=== PATIENT | male | born 1975 | race Caucasian/White ===

== ENCOUNTER 2019-11-30 11:57 | Emergency (ER) | payer MEDICAID ==
[~2019-11-30] VITALS: Ht 175.3 cm; Wt 109.1 kg
[2019-11-30 12:34] VITALS: BP 176/113
== END 2019-11-30 14:50 | disposition home or self-care (01) ==
LOC: ER 11:58
DX: F15.10 Other stimulant abuse, uncomplicated (principal); F10.10 Alcohol abuse, uncomplicated; F17.200 Nicotine dependence, unspecified, uncomplicated; Z88.0 Allergy status to penicillin; Y90.9 Presence of alcohol in blood, level not specified
CPT/HCPCS: 99281

== ENCOUNTER 2020-07-13 02:23 | Emergency (ER) | payer MEDICAID ==
[~2020-07-13] VITALS: Ht 175.3 cm; Wt 120.5 kg
[2020-07-13 02:25] VITALS: BP 168/107
== END 2020-07-13 03:56 ==
LOC: ER 02:23
DX: S52.602A Unspecified fracture of lower end of left ulna, initial encounter for closed fracture (principal); S00.83XA Contusion of other part of head, initial encounter; I10 Essential (primary) hypertension; F15.90 Other stimulant use, unspecified, uncomplicated; Z85.9 Personal history of malignant neoplasm, unspecified; Z72.89 Other problems related to lifestyle; Z88.0 Allergy status to penicillin; X58.XXXA Exposure to other specified factors, initial encounter; Y93.89 Activity, other specified; Y92.89 Other specified places as the place of occurrence of the external cause; Y99.8 Other external cause status; Y09 Assault by unspecified means
CPT/HCPCS: 29125; 70450; 71045; 73110; 99284

== ENCOUNTER 2021-04-10 01:30 | Emergency (ER) | payer MEDICAID ==
[~2021-04-10] VITALS: Ht 172.7 cm; Wt 118.2 kg
[2021-04-10] MEDS ORDERED: HYDR-3965 PO (03:29)
[2021-04-10 04:30] VITALS: BP 136/87
== END 2021-04-10 04:33 | disposition home or self-care (01) ==
LOC: ER 01:30
DX: S42.291A Other displaced fracture of upper end of right humerus, initial encounter for closed fracture (principal); I10 Essential (primary) hypertension; F15.90 Other stimulant use, unspecified, uncomplicated; Z72.89 Other problems related to lifestyle; Z88.0 Allergy status to penicillin; Z79.899 Other long term (current) drug therapy; W10.1XXA Fall (on)(from) sidewalk curb, initial encounter; Y93.01 Activity, walking, marching and hiking; Y92.89 Other specified places as the place of occurrence of the external cause; Y99.8 Other external cause status
CPT/HCPCS: 29105; 73030; 99284

== ENCOUNTER 2021-08-25 20:24 | Emergency (ER) | payer MEDICAID ==
[~2021-08-25] VITALS: Ht 175.3 cm; Wt 104.5 kg
[2021-08-25 20:45] VITALS: BP 154/121
== END 2021-08-25 21:28 ==
LOC: ER 20:24
DX: Z00.8 Encounter for other general examination (principal); I10 Essential (primary) hypertension; F15.90 Other stimulant use, unspecified, uncomplicated; Z72.89 Other problems related to lifestyle; Z85.9 Personal history of malignant neoplasm, unspecified; Z88.0 Allergy status to penicillin
CPT/HCPCS: 99283

== ENCOUNTER 2022-02-03 20:06 | Emergency (ER) | payer MEDICAID ==
[~2022-02-03] VITALS: Ht 175.3 cm; Wt 95.5 kg
[2022-02-03 20:56] LABS: BASOPHILS # (AUTO) 0.1 X10'3 (0-0.2); BASOPHILS % (AUTO) 0.3 % (0-1); EOSINOPHILS # (AUTO) 0.1 X10'3 (0-0.9); EOSINOPHILS % (AUTO) 0.7 % (0-6); HEMATOCRIT 45.6 % (42.0-52.0); HEMOGLOBIN 15.6 g/dl (14.0-17.9); LYMPHOCYTES # (AUTO) 2.6 X10'3 (1.1-4.8); LYMPHOCYTES % (AUTO) 14.6 % (21-51); MEAN CORPUSCULAR HEMOGLOBIN 30.5 PG (27.0-31.0); MEAN CORPUSCULAR HGB CONC 34.3 g/dL (33.0-36.5); MEAN CORPUSCULAR VOLUME 89.2 FL (78-98); MEAN PLATELET VOLUME 7.4 FL (7.4-10.4); MONOCYTES # (AUTO) 0.7 X10'3 (0-0.9); MONOCYTES % (AUTO) 3.7 % (2-12); NEUTROPHILS # (AUTO) 14.5 X10'3 (1.8-7.7); NEUTROPHILS % (AUTO) 80.7 % (42-75); PLATELET COUNT 323 X10'3 (140-440); RED BLOOD COUNT 5.11 X10'6 (4.70-6.10)
[2022-02-03 21:10] LABS: ALANINE AMINOTRANSFERASE 25 U/L (12-78); ALBUMIN 3.8 G/DL (3.4-5.0); ALBUMIN/GLOBULIN RATIO 0.9 (1.1-1.5); ALKALINE PHOSPHATASE 111 IU/L (46-116); ANION GAP 14 (8-16); ASPARTATE AMINO TRANSFERASE 15 U/L (10-37); BILIRUBIN,TOTAL 0.2 MG/DL (0.1-1.0); BLOOD UREA NITROGEN 16 MG/DL (7-18); BUN/CREATININE RATIO 14.7 (5.4-32.0); CALCIUM 8.6 MG/DL (8.5-10.1); CHLORIDE 105 MMOL/L (99-107); CREATININE 1.09 MG/DL (0.60-1.10); ETHANOL 0.192 GM/DL (0.0-0.010); GLUCOSE 133 MG/DL (70-104); LIPASE 79 U/L (73-393); POTASSIUM 3.1 MMOL/L (3.5-5.1); SODIUM 141 MMOL/L (135-145); TOTAL CARBON DIOXIDE 21.7 MMOL/L (24-32); TOTAL PROTEIN 7.9 G/DL (6.4-8.2); eGFR 73 ML/MIN
[2022-02-03 21:13] LABS: URINE AMPHETAMINE SCREEN NEGATIVE (Neg); URINE BARBITUATE SCREEN NEGATIVE (Neg); URINE BENZODIAZEPINES SCREEN NEGATIVE (Neg); URINE CANNABINOID SCREEN NEGATIVE (Neg); URINE COCAINE SCREEN NEGATIVE (Neg); URINE METHADONE SCREEN NEGATIVE (Neg); URINE OPIATE SCREEN NEGATIVE (Neg); URINE PHENCYCLIDINE SCREEN NEGATIVE (Neg)
[2022-02-03] MEDS ORDERED: pantoprazole 40 MG vial IV ONE (21:20)
[2022-02-03] MEDS ORDERED: normal saline 1000ML IV soln IVB ONE (21:20)
[2022-02-03] MEDS ORDERED: ondansetron/PF 4mg/2ml inj IV ONE (21:20)
[2022-02-03] MEDS ORDERED: pantoprazole 40MG/NS 100ML BAG 100 ML IV ONE (21:25)
[2022-02-03 21:35] VITALS: BP 106/61
--- NOTE | 2022-02-03 21:35 | NUR ---
PT IS BECOMING MORE AND MORE ANXIOUS, TAPPING HIS FEET, FIDGITING, ETC. PT IS REPEATEDLY ASKING TO LEAVE AND ASKING EVERY STAFF MEMBER FOR A BEER
--- NOTE | 2022-02-03 21:44 | NUR ---
PT REMOVED OWN IV AND WALKED OUT OF AMBULANCE BAY. ATTEMPTS TO VERBALLY REDIRECT PATIENT WERE UNSUCCESSFUL.
[2022-02-03 22:23] LABS: CLARITY,URINE TURBID (Clear); COLOR,URINE YELLOW (Yellow); GLUCOSE, URINE NEGATIVE (Neg); KETONES,URINE NEGATIVE (Neg); LEUKOCYTE ESTERASE ,URINE NEGATIVE (Neg); NITRITES, URINE NEGATIVE (Neg); OCCULT BLOOD,URINE NEGATIVE (Neg); PH,URINE 5.5 (4.8-8.0); PROTEIN,URINE NEGATIVE (Neg); UROBILINOGEN,URINE 0.2 E.U/dL (0.2-1.0)
[2022-02-03 22:25] LABS: UA COLLECTION TYPE CLN CATCH MIDSTREAM
[2022-02-03 22:30] LABS: MUCUS STRANDS NONE SEEN /LPF (Neg)
[2022-02-03 22:57] LABS: AMORPHOUS URATES 3+
[2022-02-03 23:02] LABS: WBC,URINE NONE SEEN /HPF (0-4)
[2022-02-03 23:03] LABS: BACTERIA,URINE NONE SEEN /HPF (Neg); SQUAMOUS EPITHELIAL CELL,UR NONE SEEN /LPF (FEW)
[2022-02-03 23:04] LABS: RBC,URINE NONE SEEN /HPF (0-2)
== END 2022-02-03 21:46 | disposition left against medical advice (07) ==
LOC: ER 20:06
DX: F10.129 Alcohol abuse with intoxication, unspecified (principal); R42 Dizziness and giddiness; R06.02 Shortness of breath; R19.7 Diarrhea, unspecified; R00.0 Tachycardia, unspecified; I10 Essential (primary) hypertension; Z88.0 Allergy status to penicillin; Y90.9 Presence of alcohol in blood, level not specified
CPT/HCPCS: 36415; 71045; 80053; 80305; 80320; 81001; 83690; 85025; 93005; 96374; 96375; 99285; C9113; J2405; J7030; 99284

== ENCOUNTER 2022-02-25 21:58 | Emergency (ER) | payer MEDICAID ==
[2022-02-26] MEDS ORDERED: HYDR-3965 PO (05:23)
== END 2022-02-26 01:32 | disposition left against medical advice (07) ==
LOC: ER 21:59
DX: M79.673 Pain in unspecified foot (principal); Z53.21 Procedure and treatment not carried out due to patient leaving prior to being seen by health care provider

== ENCOUNTER 2022-02-26 04:52 | Emergency (ER) | payer MEDICAID ==
[~2022-02-26] VITALS: Ht 175.3 cm; Wt 95.5 kg
[2022-02-26] MEDS ORDERED: ketorolac trometh inj. 60 MG/2 ML VIAL IM ONE (05:20)
[2022-02-26] MEDS ORDERED: HYDR-3965 PO (05:23)
[2022-02-26 06:00] VITALS: BP 124/80
== END 2022-02-26 06:02 | disposition home or self-care (01) ==
LOC: ER 04:53
DX: S82.64XA Nondisplaced fracture of lateral malleolus of right fibula, initial encounter for closed fracture (principal); I10 Essential (primary) hypertension; Z88.0 Allergy status to penicillin; Y93.39 Activity, other involving climbing, rappelling and jumping off; Y93.89 Activity, other specified; Y92.89 Other specified places as the place of occurrence of the external cause; Y99.8 Other external cause status
CPT/HCPCS: 29515; 73610; 96372; 99283; J1885; A6449

== ENCOUNTER 2022-04-24 16:32 | Emergency (ER) | payer MEDICAID ==
[~2022-04-24] VITALS: Ht 175.3 cm; Wt 93.2 kg
[2022-04-24 16:41] VITALS: BP 137/91
[2022-04-24] MEDS ORDERED: ibuprofen tablet 400 MG TABLET PO ONE (18:40)
[2022-04-24] MEDS ORDERED: IBUP-1985 PO (19:18)
== END 2022-04-24 20:53 | disposition home or self-care (01) ==
LOC: ER 16:33
DX: S42.402A Unspecified fracture of lower end of left humerus, initial encounter for closed fracture (principal); S20.212A Contusion of left front wall of thorax, initial encounter; I10 Essential (primary) hypertension; Z88.0 Allergy status to penicillin; Z79.899 Other long term (current) drug therapy; Z59.00 Homelessness unspecified; Z56.0 Unemployment, unspecified
CPT/HCPCS: 29105; 71101; 73080; 99284; A4565; A6449

== ENCOUNTER 2022-06-18 09:13 | Emergency (ER) | payer MEDICAID ==
[~2022-06-18] VITALS: Ht 175.3 cm; Wt 85.0 kg
[~2022-06-18 09:13] MED LIST: GABA-530 PO; IBUP-1985 PO; LISI20TA28 PO; LOP12.5T PO; LURA20TA PO; MIRT45TA83 PO
--- NOTE | 2022-06-18 09:40 | NUR ---
at bedside. Pt able to answer all questions. Ambulance trail done. Pt able to ambulate w/ a steady gait.
[2022-06-18 09:48] VITALS: BP 138/90
== END 2022-06-18 09:56 | disposition home or self-care (01) ==
LOC: ER 09:14
DX: F10.129 Alcohol abuse with intoxication, unspecified (principal); I10 Essential (primary) hypertension; Z88.0 Allergy status to penicillin; Z79.899 Other long term (current) drug therapy; Z79.1 Long term (current) use of non-steroidal anti-inflammatories (NSAID); Z59.00 Homelessness unspecified
CPT/HCPCS: 93005; 99284

== ENCOUNTER 2023-09-14 17:23 | Emergency (ER) | payer MEDICAID ==
[~2023-09-14] VITALS: Ht 175.3 cm; Wt 103.1 kg
[~2023-09-14 17:23] MED LIST changes: -LURA20TA PO; +LURA20TA8 PO
[2023-09-14 17:27] VITALS: BP 156/99; PULSE 100; TEMP 97.7; O2SAT 99
[2023-09-14 19:00] VITALS: RESP 16
== END 2023-09-14 19:26 | disposition home or self-care (01) ==
LOC: ER 17:24
DX: F10.129 Alcohol abuse with intoxication, unspecified (principal); I10 Essential (primary) hypertension; Z59.00 Homelessness unspecified; Z56.0 Unemployment, unspecified; Z88.0 Allergy status to penicillin; Z79.899 Other long term (current) drug therapy; Y90.9 Presence of alcohol in blood, level not specified
CPT/HCPCS: 99284

== ENCOUNTER 2023-10-11 09:31 | Emergency (ER) | payer MEDICAID ==
[~2023-10-11] VITALS: Ht 175.3 cm; Wt 80.0 kg
[2023-10-11 09:39] VITALS: TEMP 99.1
[2023-10-11] MEDS ORDERED: LORazepam 2 mg/ml vial IV ONE (09:45)
[2023-10-11] MEDS ORDERED: normal saline 1000ML IV soln IVB ONE (09:45)
[2023-10-11] MEDS: LORazepam 2 mg/ml vial IV ONE ×2 (09:59→11:26)
[2023-10-11] MEDS: normal saline 1000ml 1,000 ML IV ONE ×2 (10:00→11:27)
[2023-10-11] MEDS: normal saline 1000ML IV soln IVB ONE (10:03)
[2023-10-11] MEDS: ondansetron/PF 4mg/2ml inj IV ONE (10:14)
[2023-10-11 11:02] LABS: BASOPHILS # (AUTO) 0.1 X10'3 (0-0.2); BASOPHILS % (AUTO) 1.2 % (0-1); EOSINOPHILS # (AUTO) 0.1 X10'3 (0-0.9); EOSINOPHILS % (AUTO) 0.8 % (0-6); HEMATOCRIT 41.5 % (42.0-52.0); HEMOGLOBIN 14.2 g/dl (14.0-17.9); LYMPHOCYTES % (AUTO) 11.3 % (21-51); MEAN CORPUSCULAR HGB CONC 34.2 g/dL (33.0-36.5); MEAN CORPUSCULAR VOLUME 96.6 FL (78-98); MEAN PLATELET VOLUME 7.6 FL (7.4-10.4); MONOCYTES # (AUTO) 0.4 X10'3 (0-0.9); MONOCYTES % (AUTO) 4.6 % (2-12); NEUTROPHILS # (AUTO) 7.5 X10'3 (1.8-7.7); NEUTROPHILS % (AUTO) 82.1 % (42-75); PLATELET COUNT 332 X10'3 (140-440); RED BLOOD COUNT 4.29 X10'6 (4.70-6.10); RED CELL DISTRIBUTION WIDTH 14.2 % (11.5-14.5); WHITE BLOOD COUNT 9.1 X10'3 (4.5-11.0)
[2023-10-11 11:04] LABS: BILIRUBIN,URINE NEGATIVE (Neg); CLARITY,URINE CLEAR (Clear); COLOR,URINE YELLOW (Yellow); GLUCOSE, URINE NEGATIVE (Neg); KETONES,URINE TRACE mg/dl (Neg); LEUKOCYTE ESTERASE ,URINE NEGATIVE (Neg); NITRITES, URINE NEGATIVE (Neg); OCCULT BLOOD,URINE NEGATIVE (Neg); PROTEIN,URINE NEGATIVE (Neg); UROBILINOGEN,URINE 0.2 E.U/dL (0.2-1.0)
[2023-10-11 11:06] LABS: UA COLLECTION TYPE NON-SPECIFIED
[2023-10-11 11:27] LABS: ANION GAP 12 (8-16); BLOOD UREA NITROGEN 5 MG/DL (7-18); BUN/CREATININE RATIO 6.9 (10.0-20.0); CALCIUM 7.7 MG/DL (8.5-10.1); CHLORIDE 109 MMOL/L (99-107); CREATININE 0.72 MG/DL (0.60-1.10); GLUCOSE 98 MG/DL (70-104); POTASSIUM 4.1 MMOL/L (3.5-5.1); SODIUM 145 MMOL/L (135-145); TOTAL CARBON DIOXIDE 23.9 MMOL/L (24-32); eCRCL 128 ML/MIN; eGFR > 90 ML/MIN
[2023-10-11 11:33] LABS: URINE AMPHETAMINE SCREEN NEGATIVE (Neg); URINE BARBITUATE SCREEN POSITIVE (Neg); URINE BENZODIAZEPINES SCREEN POSITIVE (Neg); URINE CANNABINOID SCREEN NEGATIVE (Neg); URINE COCAINE SCREEN NEGATIVE (Neg); URINE METHADONE SCREEN NEGATIVE (Neg); URINE OPIATE SCREEN NEGATIVE (Neg); URINE PHENCYCLIDINE SCREEN NEGATIVE (Neg)
[2023-10-11 11:34] LABS: ETHANOL < 10 MG/DL (<10)
[2023-10-11 13:28] VITALS: BP 155/104; PULSE 119; RESP 27; O2SAT 92
[2023-10-11] MEDS ORDERED: LORA-269 PO (13:31)
== END 2023-10-11 13:50 | disposition home or self-care (01) ==
LOC: ER 09:32
DX: F10.239 Alcohol dependence with withdrawal, unspecified (principal); Y90.9 Presence of alcohol in blood, level not specified; R07.89 Other chest pain; I10 Essential (primary) hypertension; Z86.73 Personal history of transient ischemic attack (TIA), and cerebral infarction without residual deficits; Z59.00 Homelessness unspecified; Z56.0 Unemployment, unspecified; Z88.0 Allergy status to penicillin; Z79.899 Other long term (current) drug therapy
CPT/HCPCS: 36415; 71045; 80048; 80305; 80320; 81003; 82140; 84484; 85025; 93005; 96361; 96374; 96375; 96376; 99285; J2060; J2405; J7030

== ENCOUNTER 2024-02-01 16:48 | Emergency (ER) | payer MEDICAID ==
[~2024-02-01] VITALS: Ht 182.9 cm; Wt 100.5 kg
[~2024-02-01 16:48] MED LIST changes: +LORA-269 PO
[2024-02-01] MEDS: normal saline 1000ml 1,000 ML IV ONE (17:39)
[2024-02-01 17:40] LABS: EOSINOPHILS # (AUTO) 0.2 X10'3 (0-0.9); HEMOGLOBIN 13.8 g/dl (14.0-17.9); RED BLOOD COUNT 3.98 X10'6 (4.70-6.10)
[2024-02-01 17:42] LABS: BASOPHILS % (AUTO) 0.4 % (0-1); EOSINOPHILS % (AUTO) 1.5 % (0-6); HEMATOCRIT 41.3 % (42.0-52.0); LYMPHOCYTES # (AUTO) 1.9 X10'3 (1.1-4.8); LYMPHOCYTES % (AUTO) 16.1 % (21-51); MEAN CORPUSCULAR HEMOGLOBIN 34.8 PG (27.0-31.0); MEAN CORPUSCULAR HGB CONC 33.5 g/dL (33.0-36.5); MEAN CORPUSCULAR VOLUME 103.9 FL (78-98); MEAN PLATELET VOLUME 8.3 FL (7.4-10.4); MONOCYTES # (AUTO) 1.2 X10'3 (0-0.9); NEUTROPHILS # (AUTO) 8.3 X10'3 (1.8-7.7); PLATELET COUNT 190 X10'3 (140-440); RED CELL DISTRIBUTION WIDTH 14.5 % (11.5-14.5); WHITE BLOOD COUNT 11.5 X10'3 (4.5-11.0)
[2024-02-01] MEDS: ringers solution, lactated 1000ml IV soln IV ONE (17:42)
[2024-02-01] MEDS: normal saline 1000ML IV soln IVB ONE (17:42)
[2024-02-01 17:57] LABS: ALANINE AMINOTRANSFERASE 104 U/L (12-78); ALBUMIN 2.7 G/DL (3.4-5.0); ALBUMIN/GLOBULIN RATIO 0.8 (1.1-1.5); ALKALINE PHOSPHATASE 105 IU/L (46-116); ANION GAP 15 (8-16); ASPARTATE AMINO TRANSFERASE 99 U/L (10-37); BILIRUBIN,TOTAL 0.6 MG/DL (0.1-1.0); BLOOD UREA NITROGEN 17 MG/DL (7-18); BUN/CREATININE RATIO 6.3 (10.0-20.0); CALCIUM 7.2 MG/DL (8.5-10.1); CHLORIDE 103 MMOL/L (99-107); CREATININE 2.68 MG/DL (0.60-1.10); ETHANOL 174 MG/DL (<10); GLUCOSE 117 MG/DL (70-104); POTASSIUM 3.4 MMOL/L (3.5-5.1); SODIUM 139 MMOL/L (135-145); TOTAL CARBON DIOXIDE 21.2 MMOL/L (24-32); TOTAL PROTEIN 6.3 G/DL (6.4-8.2); eCRCL 38 ML/MIN; eGFR 26 ML/MIN
[2024-02-01] MEDS: LORazepam 1 MG tablet PO ONE (19:59)
[2024-02-01] MEDS: ondansetron/PF 4mg/2ml inj IV ONE (20:52)
[2024-02-01 21:08] LABS: URINE AMPHETAMINE SCREEN NEGATIVE (Neg); URINE BARBITUATE SCREEN NEGATIVE (Neg); URINE BENZODIAZEPINES SCREEN POSITIVE (Neg); URINE CANNABINOID SCREEN NEGATIVE (Neg); URINE COCAINE SCREEN NEGATIVE (Neg); URINE METHADONE SCREEN NEGATIVE (Neg); URINE OPIATE SCREEN NEGATIVE (Neg); URINE PHENCYCLIDINE SCREEN NEGATIVE (Neg)
[2024-02-02] MEDS: thiamine 100mg/ml 2ml inj. IV ONE (03:38)
[2024-02-02] MEDS: magnesium sulf-water 2g/50mL 50 ML IV ONE (03:39)
[2024-02-02] MEDS: chlordiazePOXIDE 25mg capsule PO ONE (06:20)
[2024-02-02 07:29] VITALS: BP 134/90; PULSE 96; RESP 14; TEMP 98.5; O2SAT 96
== END 2024-02-02 07:20 | disposition home or self-care (01) ==
LOC: ER 16:48
DX: T67.01XA Heatstroke and sunstroke, initial encounter (principal); F10.129 Alcohol abuse with intoxication, unspecified; M62.82 Rhabdomyolysis; R41.82 Altered mental status, unspecified; I10 Essential (primary) hypertension; F17.200 Nicotine dependence, unspecified, uncomplicated; Z88.0 Allergy status to penicillin; Z79.899 Other long term (current) drug therapy; X58.XXXA Exposure to other specified factors, initial encounter; Y93.89 Activity, other specified; Y92.89 Other specified places as the place of occurrence of the external cause; Y99.8 Other external cause status; Y90.6 Blood alcohol level of 120-199 mg/100 ml
CPT/HCPCS: 36415; 70450; 80053; 80305; 80320; 82140; 82948; 83605; 85025; 93005; 96365; 96366; 96375; 99291; J2405; J3411; J7030; J7120

== ENCOUNTER 2024-09-14 07:56 | Emergency (ER) | payer MEDICAID ==
[~2024-09-14] VITALS: Ht 175.3 cm; Wt 91.4 kg
[2024-09-14 08:02] VITALS: TEMP 98
[2024-09-14] MEDS ORDERED: PANT-47 PO ×2 (08:19→08:33)
[2024-09-14] MEDS ORDERED: LURA40TA2 PO ×2 (08:19→08:33)
[2024-09-14] MEDS ORDERED: FOLI0.4T6 PO (08:20)
[2024-09-14 08:30] VITALS: BP 155/101; PULSE 84; RESP 16; O2SAT 98
[2024-09-14] MEDS ORDERED: LISI20TA28 PO (08:33)
[2024-09-14] MEDS ORDERED: FOLI1TAB27 PO (08:33)
== END 2024-09-14 08:57 | disposition home or self-care (01) ==
LOC: ER 07:57
DX: I10 Essential (primary) hypertension (principal); F31.9 Bipolar disorder, unspecified; F41.9 Anxiety disorder, unspecified; F17.200 Nicotine dependence, unspecified, uncomplicated; Z59.00 Homelessness unspecified; Z56.0 Unemployment, unspecified; Z86.73 Personal history of transient ischemic attack (TIA), and cerebral infarction without residual deficits; Z85.51 Personal history of malignant neoplasm of bladder; Z88.0 Allergy status to penicillin; Z79.899 Other long term (current) drug therapy
CPT/HCPCS: 99284

== ENCOUNTER 2024-12-14 11:39 | Emergency (ER) | payer MEDICAID ==
[~2024-12-14] VITALS: Ht 172.7 cm; Wt 97.6 kg
[~2024-12-14 11:39] MED LIST changes: +FOLI0.4T6 PO; +FOLI1TAB27 PO; -GABA-530 PO; -IBUP-1985 PO; -LOP12.5T PO; -LORA-269 PO; -LURA20TA8 PO; +LURA40TA2 PO; -MIRT45TA83 PO; +PANT-47 PO
[2024-12-14 11:45] VITALS: TEMP 98.2
--- NOTE | 2024-12-14 11:58 | ELECTROCARDIOGRAPH REPORT ---
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 Jayme Albarran Measurements Intervals [place] Rate: 113 P: 79 KS: 151 QRS: 69 QRSD: 88 T: 62 QT: 302 QTc: 414 Interpretive Statements Sinus tachycardia RSR' in V1 or V2, probably normal variant ST elev, probable normal early repol pattern Electronically Signed On 12-16-2024 21:44:[address] Jayme Albarran Please click the below link to view image of tracing.
--- NOTE | 2024-12-14 12:10 | Physician Documentation ---
History of Present Illness ~ Chief Complaint: Syncope Stated Complaint: NEAR SYNCOPE Time Seen by MD: 11:59 Primary Medical Doctor: NO PMD HPI This is a 49-year-old gentleman who drinks daily two extra-large vodka" and comes in today for evaluation of episode of loss of consciousness earlier today. No obvious trigger provocation. He only had one bottle of extra large vodka to day. This is less than normal for him. The loss of consciousness was witnessed by his girlfriend but he does not recall it. Denies any chest pain or difficulty breathing. The past medical history includes sepsis in July of this year when he has a stay at [facility] ICU . The gentleman is a poor historian. Medication Reconciliation Allergies: Coded Allergies: Penicillins (Verified Allergy, Unknown, THROAT SWELLS, 09/14/24) Scheduled Folic Acid* (Folic Acid*), 1 TAB PO DAILY, (Reported) Folic Acid* (Folic Acid*), 1 TAB PO DAILY Lisinopril (Lisinopril), 1 TAB PO DAILY, (Reported) Lurasidone HCl (Latuda), 1 TAB PO HS, (Reported) Lurasidone HCl (Latuda), 1 TAB PO HS Pantoprazole Sodium (PROTONIX tablet), 1 TAB PO DAILY Miscellaneous Medications Pantoprazole Sodium (PROTONIX tablet), 40 MG PO, (Reported) Past Medical History Past Medical History: CVA/TIA/Stroke, Hypertension, *CANCER*, Anxiety, Bipolar Past Surgical History: noncontributory Alcohol Use: Sober Drug Use: none Lives with: Mother Lives In: Homeless Occupation: unemployed Review of Systems ROS 10 point review of systems was performed and unless noted above in HPI is negative for acute process/complaint. Physical Exam Vital Signs: Temperature: 98.2, Source: Temporal, Heart Rate: 112, Respiratory Rate: 18, BP: 172/103, Pulse Oximetry: 92, Weight: 97.600 Physical Exam GENERAL: Awake, alert, oriented, GCS 15, no apparent distress, non-toxic appearing, answers questions, follows commands appropriately. Examined in bed 1. HEENT: Atraumatic, normocephalic, pupils equal, extraocular muscles intact, sclerae anicteric, mucus membranes moist, oropharynx is clear, no stridor. NECK: supple, full active range of motion, trachea midline, no thyromegaly, no lymphadenopathy, no JVD. CARDIOVASCULAR: regular rate/rhythm, no murmurs/gallops/rubs, Pulses are 2+ in all extremities and symmetric. Capillary refill less than 2 seconds. PULMONARY: Nonlabored, good air movement ,no respiratory distress, speaking in full sentences, clear to auscultation bilaterally, no wheezing, no ronchi, no rales, no accessory muscle use. GASTROINTESTINAL: Soft, non-tender, non-distended, normal active bowel sounds, no organomegaly, no pulsatile masses, no CVA tenderness. NEUROLOGIC: Lucid with normal mental status. Normal facial symmetry. Moves all extremities symmetrically and with purpose. No truncal ataxia. Speech is fluid without evidence of dysarthria or aphasia, no focal deficits appreciated. MUSCULOSKELETAL: There is full range of motion of all extremities. There is no joint pain or joint swelling or joint erythema. There is no muscle pain or tenderness or swelling. EXTREMITIES: warm, well-perfused, no cyanosis, no clubbing, no edema, no acute deformities. Skin: warm, dry, no rashes or lesions, no jaundice, no petechiae orpurpura. No ecchymosis. PSYCHIATRIC: Normal affect, normal insight, normal concentration. Focused exam: [] Strong smell of alcohol noted. Progress Results/Orders Results/Orders Completed Orders - GILSON MICHAUD DO D-Dimer (12/14/24 12:00) Vital Signs 12/14/24 12/14/24 11:45 13:16 Temp 98.2 Pulse 112 108 Resp 18 16 B/P (MAP) 172/103 127/68 (87) Pulse Ox 92 97 Laboratory Tests Test 12/14/24 12:00 12/14/24 12:06 White Blood Count 5.8 Red Blood Count 5.38 Hemoglobin 16.7 Hematocrit 49.1 Mean Corpuscular Volume 91.3 Mean Corpuscular Hemoglobin 31.1 H Mean Corpuscular Hemoglobin Concent 34.1 Red Cell Distribution Width 17.1 H Platelet Count 115 L Mean Platelet Volume 7.9 Neutrophils (%) (Auto) 55.2 Lymphocytes (%) (Auto) 32.6 Monocytes (%) (Auto) 9.0 Eosinophils (%) (Auto) 2.5 Basophils (%) (Auto) 0.7 Neutrophils # (Auto) 3.2 Lymphocytes # (Auto) 1.9 Monocytes # (Auto) 0.5 Eosinophils # (Auto) 0.1 Basophils # (Auto) 0.0 CBC Comment D-Dimer 0.23 D-Dimer Comment Lactic Acid Level 1.8 Troponin I High Sensitivity 12 Procalcitonin < 0.05 Sodium Level 139 Potassium Level 4.5 Chloride Level 100 Carbon Dioxide Level 25.5 Anion Gap 14 Blood Urea Nitrogen 13 Creatinine 0.63 Estimated GFR/1.73 m2 > 90 BUN/Creatinine Ratio 20.6 H Glucose Level 134 H Calcium Level 9.9 Total Bilirubin 0.5 Aspartate Amino Transf (AST/SGOT) 93 H Alanine Aminotransferase (ALT/SGPT) 76 Alkaline Phosphatase 109 Pro-B-Type Natriuretic Peptide < 30 Total Protein 8.5 H Albumin 4.2 Globulin 4.3 Albumin/Globulin Ratio 1.0 L Chemistry Comments Ethyl Alcohol Level 317 H EKG/XRAY/CT/US/VASC/MRI EKG : Additional Comment EKG was obtained and interpreted by myself showing sinus tachycardic, rate of 113, normal GA interval, narrow QRS, no QT prolongation, normal axis, no STEMI. Medical Decision Making Findings Facility Status: ED Holds, RME process The plan was discussed with the patient, who demonstrates clear understanding of the plan and is in agreement with the plan unless otherwise noted in the chart. All questions have been answered, all concerns were addressed unless otherwise documented. I was available throughout their ED stay for frequent reassessment and questions. Differential Diagnoses (considered and possible or likely): [Loss of consciousness versus fallen asleep while intoxicated with alcohol, vasovagal, orthostatic, less likely malignant arrhythmia syncope, ACS, PE has been considerably the also less likely] ??Differential Diagnoses (considered and unlikely, not requiring evaluation currently): [Aortic/great vessels dissection was considered but it is unlikely based on absence of ripping, tearing, migratory chest pain, absence of focal neurologic deficits, physical examination indicating equal and symmetric pulses. ] MDM Data Please see HPI for the following: Independent Historians and external Records Review. Historian: [Patient] Independent Historians: ?[Record review] Medication Management: [Reviewed medication list] Social History and determinants: [Reviewed] Please see the body of the note for the following: Any independent interpretations of ECG, imaging studies. All vitals signs/haemodynamics, ordered tests were independently reviewed and interpreted by myself. Nursing triage complaint and vitals reviewed, additional nursing notes were reviewed as available and I agree unless otherwise noted or documented in contradiction in the chart Vital Signs: Independently reviewed Labs: Independently interpreted Imaging: Independently interpreted Old Medical Records: Independently reviewed, see HPI for relevant summary and information Pulse Oximetry: [98%] interpreted as [normal on room air] by me [Maintenance Person: Tachycardic Rate, Regular rhythm, no ectopy, NSR] reviewed and interpreted by me] Additionally notably showing: [Hemodynamically stable. Tachycardia had resolved. Laboratory workup is remarkable only for elevated alcohol of greater than 300, the gentleman is drunk. Troponin is negative. D-dimer is negative. She has a x-ray is unremarkable.] Tests considered but not ordered include: [CT angiography has been considerably does not appear to be necessary.] Social Determinants of Health Impact: Patient was evaluated in [facility], [facility] [place] to healthcare due to below par ratio of patient to medical providers. [] Comorbid Conditions Impacting Present Evaluation and Care/Treatment: [Alcoholism] Management Discussions with other Healthcare Providers: [None] Treatment and Disposition Medication Management (Given or considered): []. See EMR for details Consideration for Hospitalization/Escalation/Deescalation of Care: Admission for observation has been considered, [however the patient is able to tolerate p.o., their symptoms are controlled, they are able to rely on oral medications, and their chief complaint/diagnosis can be managed on outpatient basis.] ?ED Course:?[No clinical deterioration. Low risk syncope from the [facility] syncope rules standpoint.] ?Shared decision making:?[Patient is hemodynamically stable for discharge home with follow with their primary care provider. [ ] Specific and cautious return precautions provided and discussed with full understanding. Any incidental findings were also discussed and follow up recommendations given. [] All questions answered. Patient/family were able to verbalize back return precautions. Patient/family agree to plan. Copies of imaging and laboratory studies were provided.] Code status:?FULL Please see the full Electronic Medical Record for full details of nursing documentation, medications list, other records of complete past medical history and conditions, vital signs, laboratory studies, and any radiologic study interpretations by radiologists. Portions of this note were completed using Ow[employer] dictation software and as a result there may exist minor errors in spelling. I have reviewed elements of past family and social history and agree as included in note. Departure Disposition: HOME / SELF CARE / HOMELESS Impression: Primary Impression: Syncope Additional Impression: Alcoholic intoxication Condition: Improved Discharge Instructions: Syncope, Adult Referrals: NO PRIMARY CARE PROVIDER (PCP) Signature Scribe Signature: No scribe Attestation: This note accurately reflects clinical decisions, work performed by myself, DO KEILY Braga NICHOLAS M DO December 14, 2024 12:10
[2024-12-14 12:12] LABS: BASOPHILS % (AUTO) 0.7 % (0-1); EOSINOPHILS # (AUTO) 0.1 X10'3 (0-0.9); EOSINOPHILS % (AUTO) 2.5 % (0-6); HEMATOCRIT 49.1 % (42.0-52.0); HEMOGLOBIN 16.7 g/dl (14.0-17.9); LYMPHOCYTES # (AUTO) 1.9 X10'3 (1.1-4.8); LYMPHOCYTES % (AUTO) 32.6 % (21-51); MEAN CORPUSCULAR HEMOGLOBIN 31.1 PG (27.0-31.0); MEAN CORPUSCULAR HGB CONC 34.1 g/dL (33.0-36.5); MEAN CORPUSCULAR VOLUME 91.3 FL (78-98); MEAN PLATELET VOLUME 7.9 FL (7.4-10.4); MONOCYTES # (AUTO) 0.5 X10'3 (0-0.9); NEUTROPHILS # (AUTO) 3.2 X10'3 (1.8-7.7); NEUTROPHILS % (AUTO) 55.2 % (42-75); PLATELET COUNT 115 X10'3 (140-440); RED BLOOD COUNT 5.38 X10'6 (4.70-6.10); RED CELL DISTRIBUTION WIDTH 17.1 % (11.5-14.5); WHITE BLOOD COUNT 5.8 X10'3 (4.5-11.0)
[2024-12-14 12:32] LABS: D-DIMER 0.23 MG/L FEU (0-0.50)
[2024-12-14 12:39] LABS: ALANINE AMINOTRANSFERASE 76 U/L (12-78); ALBUMIN 4.2 G/DL (3.4-5.0); ALKALINE PHOSPHATASE 109 IU/L (46-116); ANION GAP 14 (8-16); ASPARTATE AMINO TRANSFERASE 93 U/L (10-37); BILIRUBIN,TOTAL 0.5 MG/DL (0.1-1.0); BLOOD UREA NITROGEN 13 MG/DL (7-18); BUN/CREATININE RATIO 20.6 (10.0-20.0); CALCIUM 9.9 MG/DL (8.5-10.1); CHLORIDE 100 MMOL/L (99-107); CREATININE 0.63 MG/DL (0.60-1.10); GLUCOSE 134 MG/DL (70-104); POTASSIUM 4.5 MMOL/L (3.5-5.1); SODIUM 139 MMOL/L (135-145); TOTAL CARBON DIOXIDE 25.5 MMOL/L (24-32); TOTAL PROTEIN 8.5 G/DL (6.4-8.2); eCRCL 140 ML/MIN; eGFR > 90 ML/MIN
--- NOTE | 2024-12-14 12:40 | RADIOLOGY REPORT ---
CHEST RADIOGRAPH Indication: CP Technique: Single frontal view of the chest was obtained COMPARISON: DI CHEST,SINGLE VIEW on DOS: 10/11/23, CHEST,SINGLE VIEW on DOS: 04/28/22, CHEST,SINGLE VIE W on DOS: 02/03/22, CHEST,SINGLE VIEW on DOS: 07/13/20 FINDINGS: Lines and Tubes: None Lungs: Clear Pleura: No effusion. No pneumothorax. Cardiomediastinal contours: Unremarkable Bones: Unremarkable IMPRESSION: No acute disease.
[2024-12-14 13:24] LABS: ETHANOL 317 MG/DL (<10); PRO BRAIN NATRIURETIC PEPTIDE < 30 PG/ML (0-125)
[2024-12-14] MEDS: ondansetron/PF 4mg/2ml inj IV ONE (14:07)
[2024-12-14] MEDS ORDERED: ondansetron 4mg rapidly disintigrating tab PO ONE (14:10)
[2024-12-14 14:12] VITALS: BP 141/91; PULSE 103; RESP 19; O2SAT 94
== END 2024-12-14 14:14 | disposition home or self-care (01) ==
LOC: ER 11:40
DX: R55 Syncope and collapse (principal); F10.129 Alcohol abuse with intoxication, unspecified; I10 Essential (primary) hypertension; F31.9 Bipolar disorder, unspecified; I16.1 Hypertensive emergency; Z86.73 Personal history of transient ischemic attack (TIA), and cerebral infarction without residual deficits; Z88.0 Allergy status to penicillin; Z79.899 Other long term (current) drug therapy; Z59.00 Homelessness unspecified; Z56.0 Unemployment, unspecified; Y90.9 Presence of alcohol in blood, level not specified
CPT/HCPCS: 36415; 71045; 80053; 80320; 83605; 83880; 84145; 84484; 85025; 85379; 87040; 93005; 99285

== ENCOUNTER 2025-03-18 15:44 | Inpatient (IN) | payer MEDICAID ==
[~2025-03-18] VITALS: Ht 172.7 cm; Wt 111.9 kg
--- NOTE | 2025-03-18 15:53 | Physician Documentation ---
History of Present Illness ~ Chief Complaint: Seizure Stated Complaint: SEIZURE Time Seen by MD: 15:52 Primary Medical Doctor: NO PMD HPI 49-year-old male, history of homelessness, alcohol abuse, who presents with a witnessed seizure and low blood pressure Per EMS, the patient had a witnessed seizure. He was also hypotensive and was given 1 L IV fluid during transport. Blood glucose in the 160s. The patient tells me that he has not been drinking as much as normal over the past 2 days. He tells me that he has not been feeling well and so he has been sleeping more than normal. He is still drinking some alcohol, but much less than normal. He does not remember what happened today. When I asked him about other symptoms he answers yes to many things including headache, congestion, cough, nausea, fatigue. Has not really been eating any food over the past many days. He does report a history of withdrawal seizures in the past. Medication Reconciliation Allergies: Coded Allergies: Penicillins (Verified Allergy, Unknown, THROAT SWELLS, 09/14/24) Scheduled Folic Acid* (Folic Acid*), 1 TAB PO DAILY, (Reported) Folic Acid* (Folic Acid*), 1 TAB PO DAILY Lisinopril (Lisinopril), 1 TAB PO DAILY, (Reported) Lurasidone HCl (Latuda), 1 TAB PO HS, (Reported) Lurasidone HCl (Latuda), 1 TAB PO HS Pantoprazole Sodium (PROTONIX tablet), 1 TAB PO DAILY Miscellaneous Medications Pantoprazole Sodium (PROTONIX tablet), 40 MG PO, (Reported) Past Medical History Past Medical History: CVA/TIA/Stroke, Hypertension, *CANCER*, Anxiety, Bipolar Past Surgical History: noncontributory Alcohol Use: Sober Drug Use: none Lives with: Mother Lives In: Homeless Occupation: unemployed Review of Systems Constitutional: Denies: fever Gastrointestinal: Reports: nausea; Denies: abdominal pain Neurological: Reports: headache, dizziness, tonic-clonic seizures Physical Exam Vital Signs: Temperature: 97.0, Source: Oral, Heart Rate: 115, Respiratory Rate: 18, BP: 75/37, Pulse Oximetry: 96, Weight: 112.000 Physical Exam General: This is a pleasant and gregarious middle-aged man, alert and talkative HEENT: Atraumatic, oropharynx is dry Heart: Mild tachycardic, appears regular Lungs: Clear breath sounds bilateral, normal work of breathing, normal oxygen saturation on room air Abdomen: Soft, nondistended, nontender all quadrants including in the epigastric region Extremities: Warm and well-perfused, no traumatic finding Neuro: Alert and oriented Psychiatric: Calm and cooperative with exam, no significant tremor to the extremities Progress Results/Orders Results/Orders Orders - LOTTIE CASAS MD Drug Screen, Urine (03/18/25 15:52) Ct Abdomen Pelvis (03/18/25 16:54) Chest,Single View (03/18/25 16:54) Magnesium Sulf-Water 2g/50ml (Magnesium (03/18/25 17:15) Page Hospitalist (03/18/25 17:58) Completed Orders - LOTTIE CASAS MD CMP (03/18/25 15:52) Cbc/Diff (03/18/25 15:52) Ethanol (03/18/25 15:52) Lipase (03/18/25 15:52) MG (03/18/25 15:52) LA (03/18/25 15:52) Lorazepam Inj (Ativan Inj) (03/18/25 15:55) Normal Saline 1000ml (0.9% Sodium Chlori (03/18/25 16:10) Ringers Solution, Lacted (Lactated Ringe (03/18/25 16:50) Ct Abdomen Pelvis (03/18/25 16:54) Chest,Single View (03/18/25 16:54) Potassium Cl 20meq/100ml Bag (Potassium (03/18/25 17:15) Lactic,2hr (03/18/25 17:35) Diazepam Inj (Valium Inj) (03/18/25 18:10) Medications Received in ER Medications (Trade) Dose Ordered Sig/Martina Route PRN Reason Start Time Stop Time Status Last Admin Dose Admin (Ativan inj) 1 mg ONCE ONCE IV 03/18/25 15:55 03/18/25 15:56 DC 03/18/25 16:07 1 MG Sodium Chloride 1,000 ml @ 1,000 mls/hr ONCE ONCE IV 03/18/25 16:10 03/18/25 17:09 DC 03/18/25 16:15 1,000 MLS/HR Lactated Ringer's 1,000 ml @ 1,000 mls/hr ONCE ONCE IV 03/18/25 16:50 03/18/25 17:49 DC 03/18/25 16:52 1,000 MLS/HR Magnesium Sulfate 50 ml @ 25 mls/hr ONCE ONCE IV 03/18/25 17:15 03/18/25 19:14 03/18/25 17:43 25 MLS/HR Potassium Chloride 100 ml @ 100 mls/hr Q1H IV 03/18/25 17:15 03/18/25 18:14 DC 03/18/25 17:36 100 MLS/HR Vital Signs 03/18/25 03/18/25 03/18/25 03/18/25 15:45 15:56 16:00 16:36 Temp 97.0 Pulse 115 113 Resp 18 18 B/P (MAP) 75/37 97/46 (63) Pulse Ox 96 92 94 O2 Delivery Nasal Cannula* O2 Flow Rate 0 2 FiO2 N/A 03/18/25 03/18/25 03/18/25 03/18/25 16:45 16:55 17:09 17:50 Pulse 109 105 103 104 Resp 20 21 16 20 B/P (MAP) 86/46 (59) 89/35 (53) 88/44 (59) 109/53 (71) Pulse Ox 94 95 97 99 O2 Flow Rate 2.0 2.0 2.0 0 Laboratory Tests Test 03/18/25 16:01 03/18/25 17:55 White Blood Count 11.6 H Red Blood Count 4.00 L Hemoglobin 13.6 L Hematocrit 39.8 L Mean Corpuscular Volume 99.5 H Mean Corpuscular Hemoglobin 33.9 H Mean Corpuscular Hemoglobin Concent 34.1 Red Cell Distribution Width 13.5 Platelet Count 284 Mean Platelet Volume 7.5 Neutrophils (%) (Auto) 62.1 Lymphocytes (%) (Auto) 24.3 Monocytes (%) (Auto) 9.6 Eosinophils (%) (Auto) 3.0 Basophils (%) (Auto) 1.0 Neutrophils # (Auto) 7.2 Lymphocytes # (Auto) 2.8 Monocytes # (Auto) 1.1 H Eosinophils # (Auto) 0.3 Basophils # (Auto) 0.1 CBC Comment Sodium Level 140 Potassium Level 2.9 *L Chloride Level 106 Carbon Dioxide Level 18.3 L Anion Gap 16 Blood Urea Nitrogen 10 Creatinine 2.63 H Estimated GFR/1.73 m2 26 BUN/Creatinine Ratio 3.8 L Glucose Level 119 H Lactic Acid Level 3.3 H 2.3 H Calcium Level 7.6 L Magnesium Level 1.6 Total Bilirubin 0.4 Aspartate Amino Transf (AST/SGOT) 56 H Alanine Aminotransferase (ALT/SGPT) 75 Alkaline Phosphatase 82 Total Protein 6.5 Albumin 2.9 L Globulin 3.6 Albumin/Globulin Ratio 0.8 L Lipase 31 Chemistry Comments Ethyl Alcohol Level 269 H EKG/XRAY/CT/US/VASC/MRI Chest X-Ray : Additional Comments I personally interpreted the x-ray, and it shows: No focal consolidation, pulmonary edema, or mediastinal widening CT : Impression I personally reviewed the CT scan, and this shows no bowel obstruction or urinary obstruction Consults/PCP Consults/PCP : Additional Comment Consult: I spoke to the internal medicine service, for admission in the hospital Medical Decision Making Differential Dx:Considerations: Include: Psychogenic seizure, Due to alcohol withdrawl, Anticonvulsant withdrawl, Due to closed head injury, Due to CVA/TIA, Due to drug ingestion Assessment The patient presents with a witnessed seizure. He has long history of alcohol a buse, and is at high risk for alcohol withdrawal seizure or hyponatremia. Here in the ED he is awake and alert, is tachycardic, but not very tremulous. His nausea resolved with Zofran. He is also hypotensive. He was given aggressive IV fluid resuscitation as well as Ativan. After several liters of IV fluids, his blood pressure did improve to a reasonable level. Labs show hyponatremia and LASHON. CT scan of the abdomen shows no urinary obstruction to explain this. Alcohol level is elevated, but the patient likely lives at a much higher level at baseline. Overall, his presentation is consistent with severe dehydration and alcohol withdrawal with a seizure. No other dangerous cause identified for his symptoms. He will be admitted to the medicine service for further workup and treatment. Departure Impression: Primary Impression: Alcohol withdrawal syndrome Additional Impressions: LASHON (acute kidney injury) Hypotension Referrals: NO PRIMARY CARE PROVIDER (PCP) Critical Care Note Critical Care Note Critical Care Note The very real possibility of a deterioration of this patient's condition required the highest level of my preparedness for sudden, emergent intervention. I provided critical care services, which included medication orders, frequent reevaluations of the patient's condition and response to treatment, ordering and reviewing test results, and discussing the case with various consultants. Excludes time spent performing separately billable procedures. The critical care time associated with the care of the patient was 45 minutes minutes in the management of severe alcohol withdrawal and hypotensive shock Signature Scribe Signature: alvaro Attestation: LOTTIE Thomas MD Mar 18, 2025 15:53
[2025-03-18 16:13] LABS: MEAN PLATELET VOLUME 7.5 FL (7.4-10.4); RED CELL DISTRIBUTION WIDTH 13.5 % (11.5-14.5)
[2025-03-18] MEDS: normal saline 1000ml 1,000 ML IV ONE (16:15)
[2025-03-18 16:32] LABS: CREATININE 2.63 MG/DL (0.60-1.10); ETHANOL 269 MG/DL (<10); TOTAL CARBON DIOXIDE 18.3 MMOL/L (24-32); eCRCL 36 ML/MIN; eGFR 26 ML/MIN
[2025-03-18] MEDS: ringers solution, lacted 1,000 ML IV ONE (16:52)
--- NOTE | 2025-03-18 17:17 | RADIOLOGY REPORT ---
CHEST RADIOGRAPH Indication: Seizure, hypotensive Technique: Single frontal view of the chest was obtained Comparison: DI CHEST,SINGLE VIEW on DOS: 12/14/24, DI CHEST,SINGLE VIEW on DOS: 10/11/23, CHEST,SINGLE VIEW on DOS: 04/28/22 FINDINGS: Lines and Tubes: None Lungs: No focal consolidation. Pleura: No effusion. No pneumothorax. Cardiomediastinal contours: Unremarkable Bones: No acute osseous abnormality. IMPRESSION: No acute cardiopulmonary disease.
[2025-03-18] MEDS: potassium Cl 20mEq/100mL bag 100 ML IV SCH (17:36)
[2025-03-18] MEDS: magnesium sulf-water 2g/50mL 50 ML IV ONE (17:43)
--- NOTE | 2025-03-18 17:49 | RADIOLOGY REPORT ---
Exam: CT CT ABDOMEN PELVIS History: Acute kidney injury, abdominal distention Comparison Study: None TECHNIQUE: Multidetector CT of the abdomen and pelvis was performed from lung bases to pubic symphysi s. Imaging was performed without IV contrast. Axial, coronal, and sagittal multiplanar reformats were obtained from the axial data set by the technologist. RADIATION DOSE: DLP 1995.45 mGy.cm; CTDI vol 35.55 mGy. Findings: Lungs: The lung bases are clear. Heart: No cardiomegaly or pericardial effusion. Liver: The liver measures 23.5 cm in craniocaudal dimension. Fatty infiltration of the liver. Gallbladder: Unremarkable. Spleen: Unremarkable. Scattered splenules. Pancreas: Unremarkable Adrenals: Unremarkable Kidneys: Unremarkable GI tract: Unremarkable : Unremarkable. Calcification along the urinary bladder wall , nonspecific (axial image 102). Vasculature: Unremarkable Lymphadenopathy: Absent. Multiple nonenlarged retroperitoneal nodes, nonspecific. Peritoneum: No ascites Musculoskeletal: Moderate multilevel degenerative changes of the thoracolumbar spine Soft tissues: Unremarkable Impression: 1. No acute abdominopelvic abnormalities. 2. Hepatomegaly with hepatic steatosis.
[2025-03-18] MEDS: diazepam inj 5 MG/ML inj. IV ONE ×2 (18:10→19:46)
[2025-03-18] MEDS ORDERED: potassium Cl 40MEQ/1/2NS 520ml 520 ML IV PRN (20:05)
[2025-03-18] MEDS ORDERED: mag hydrox/Alum hydrox/simeth 30ml oral suspension PO PRN (20:05)
[2025-03-18] MEDS ORDERED: potassium Cl 20 mEq SR tablet PO PRN (20:05)
[2025-03-18] MEDS ORDERED: magnesium sulf-water 4G/100mL 100 ML IV PRN (20:05)
[2025-03-18] MEDS ORDERED: magnesium Cl slow-release 64mg tablet PO PRN (20:05)
[2025-03-18] MEDS ORDERED: haloperidol lactate 5mg/ml inj IM PRN (20:05)
[2025-03-18] MEDS ORDERED: ondansetron/PF 4mg/2ml inj IV PRN (20:05)
[2025-03-18] MEDS ORDERED: magnesium hydroxide 30ml (MOM) UD suspension PO PRN (20:05)
[2025-03-18] MEDS ORDERED: magnesium sulf-water 2g/50mL 50 ML IV PRN (20:05)
[2025-03-18 20:29] LABS: URINE AMPHETAMINE SCREEN NEGATIVE (Neg); URINE BARBITUATE SCREEN NEGATIVE (Neg); URINE BENZODIAZEPINES SCREEN NEGATIVE (Neg); URINE CANNABINOID SCREEN NEGATIVE (Neg); URINE COCAINE SCREEN NEGATIVE (Neg); URINE METHADONE SCREEN NEGATIVE (Neg); URINE OPIATE SCREEN NEGATIVE (Neg); URINE PHENCYCLIDINE SCREEN NEGATIVE (Neg)
--- NOTE | 2025-03-18 20:48 | HISTORY AND PHYSICAL-Residence ---
History & Physical Providers to CC Resident Creating Document: TACHO OCONNELLEZEQUIELKEL ORTIZ CC: MARKUS PEACE MD ~ History of Present Illness Primary Medical Doctor: NO PMD Reason for Admit\Complaint: Seizure History of Present Illness Patient is a 49-year-old male with past medical history of alcohol use disorder, tobacco dependency, HTN, hyperlipidemia and bipolar disorder who came to the ED due to a seizure episode. Patient reports that earlier today he presented with a single seizure episode, he is unsure at what time it happened or how long it lasted, but he believes it was in the morning, he is unsure if it was witnessed, he is also not sure about the characteristics of the seizure but he believes he was shaking. He does not have much recollection of the event. He denies any involuntary bowel movement or bladder movement. He also denies striking his head. He endorses significant alcohol intake, about 1 gal of vodka a day, and he states that today he did not drink as much. He reports that the last time he had a seizure was also from alcohol withdrawal. Allergies: Coded Allergies: Penicillins (Verified Allergy, Unknown, THROAT SWELLS, 09/14/24) Home Medications Home Medications Active Latuda (Lurasidone HCl) 40 Mg Tablet 1 Tab PO HS Folic Acid* (Folic Acid) Y Tab 1 Tab PO DAILY PROTONIX tablet (Pantoprazole Sodium) 40 Mg Tablet. 1 Tab PO DAILY Reported Folic Acid* (Folic Acid) 0.4 Mg Tablet 1 Tab PO DAILY 30 Days Lisinopril 20 Mg Tablet 1 Tab PO DAILY 30 Days PROTONIX tablet (Pantoprazole Sodium) 40 Mg Tablet. 40 Mg PO Latuda (Lurasidone HCl) 40 Mg Tablet 1 Tab PO HS 30 Days Past Medical History Past Medical History Alcohol use disorder Tobacco dependency HTN Hyperlipidemia Bipolar disorder Past Surgical History Surgical History Comment Bladder cancer sx Right ankle ortho Family History Family History: FH: alcoholism Brother FH: brain cancer FATHER FH: lung cancer FATHER Hepatitis C Sister Past Social History Smoking: Cigarettes (One pack a day) Alcohol Use: Abuse Drug Use: None Lives with: Other Lives In: Homeless Occupation: unemployed ROS ROS All systems were reviewed except for pertinent positives mentioned in HPI Constitutional: Denies: fever Gastrointestinal: Reports: nausea; Denies: abdominal pain Neurological: Reports: headache, dizziness, tonic-clonic seizures Exam Vitals: Vital Signs Date Time Temp Pulse Resp B/P (MAP) Pulse Ox O2 Delivery O2 Flow Rate FiO2 03/18/25 19:42 114 19 107/52 (70) 98 2.0 03/18/25 16:00 Nasal Cannula* N/A 03/18/25 15:45 97.0 General: General: awake, alert oriented to place, time, and person HEENT: No pallor present, no icterus, moist mucous membranes Neck: No masses and tenderness Resp: Unlabored. Lungs clear to auscultation bilaterally. Chest: Normal expansion Cardiovascular: Regular Rate and rhythm, normal S1 and S2 without murmur, rub or gallop Abdomen: Distended, soft and nontender, no organomegaly, no guarding and rigidity, bowel sounds present Neuro: Hand tremor noticed. No focal weakness in the upper and lower limb muscles, power of the muscles 5/5 bilateral upper and lower extremities, normal reflexes bilaterally. Cranial nerves intact Extremities: No cyanosis,clubbing or edema Skin: Warm and Dry. No lesions Psych: Normal affect Diagnostic Data Last Recorded Lab Results: 03/18/25 1601 03/18/25 1601 Advance Care Planning Advanced Care plannin - 30 Minutes Additional Plan Patient is a 49-year-old male with past medical history of alcohol use disorder, tobacco dependency, HTN, hyperlipidemia and bipolar disorder who came to the ED due to a seizure episode. Admitted for management of alcohol withdrawal. Severe alcohol withdrawal Alcohol use disorder Patient is currently alert, awake and hemodynamically stable Bilirubin is normal AST is slightly elevated Lactic acid is elevated but trending down, will repeat CT abdomen and pelvis shows hepatomegaly and steatosis Received 2 L of IV NS in ED He also received Ativan and diazepam Will start patient on moderate alcohol withdrawal protocol and multivitamins Start thiamine and D5W at 100 cc/hour guest services agent and substance navigator consult in place Patient discussed in detail with Dr. Peace who recommended CT head LASHON likely prerenal secondary to tubular stasis Metabolic acidosis Hypokalemia Creatinine is 2.63 Carbon dioxide is 18.3 Potassium is 2.9 IV hydration as above Continue monitoring BMP Tobacco dependency Start nicotine patch Q 24 hour HTN Hyperlipidemia Continue lisinopril, atorvastatin. Pending med rec Bipolar disorder Continue home meds, pending med rec Code Status: Full code DVT prophylaxis: Heparin Nutrition: Regular diet Prognosis: Guarded Disposition: Admit to PCU with tele monitoring. Continue medical management Kel Molina MD Internal Medicine Resident PGY-2 Patient evaluated using HIPPA complaint AV device Agree with plan as discussed with the resident Markus Peace MD Date of Service: Mar 18, 2025 Billing Provider: MARKUS PEACE MD, LEONARDO LUIS Mar 18, 2025 20:48 MARKUS PEACE MD Mar 19, 2025 01:32
[2025-03-18] MEDS: diazepam inj 5 MG/ML inj. IV PRN (21:36)
[2025-03-18 22:00] VITALS: BP 150/88; PULSE 114; RESP 18; TEMP 98.4; O2SAT 93
[2025-03-18 23:00] VITALS: RESP 18; O2SAT 93
[2025-03-18] MEDS: thiamine 100mg/ml 2ml inj. IV SCH (23:24)
[2025-03-18] MEDS: nicotine 21mg patch - 24 hr TD SCH (23:30)
[2025-03-18] MEDS: potassium Cl 20 mEq SR tablet PO PRN (23:34)
[2025-03-19] VITALS (9 sets, daily range): BP systolic 136–165; BP diastolic 72–108; PULSE 107–121; RESP 15–23; TEMP 97.1–98.9; O2SAT 96–100
[2025-03-19] MEDS ORDERED: QUET-1 PO (04:09)
[2025-03-19] MEDS ORDERED: ATOR40TA PO (04:10)
[2025-03-19] MEDS ORDERED: MULT-1085 PO (04:13)
--- NOTE | 2025-03-19 06:14 | ELECTROCARDIOGRAPH REPORT ---
[facility] Test Date: 2025-03-18 Test Time: 15:49:34 Pat Name: PALMIRA VELARDE Department: EMERGENCY ROOM Room: [place] [address] B Gender: M Access Services Assistant: : 1975 Requested By: DEPARTMENT EMERGENCY Order Number: [id number] Reading MD: Measurements Intervals [place] Rate: 111 P: 59 OR: 145 QRS: 52 QRSD: 97 T: 62 QT: 367 QTc: 499 Interpretive Statements Sinus tachycardia Probable left atrial enlargement RSR' in V1 or V2, right VCD or RVH Borderline prolonged QT interval Please click the below link to view image of tracing.
[2025-03-19] MEDS: multivitamins, therapeutics tablet PO SCH (07:43)
[2025-03-19] MEDS: docusate sod 100mg capsule PO SCH (07:43)
[2025-03-19] MEDS: heparin, porcine 5000 units/ml vial SQ SCH (07:44)
[2025-03-19 07:45] LABS: MEAN PLATELET VOLUME 8.0 FL (7.4-10.4); RED CELL DISTRIBUTION WIDTH 13.4 % (11.5-14.5)
[2025-03-19 07:55] LABS: INR 1.0 INR
[2025-03-19] MEDS: K and/or MAG REPLACEMENT MC SCH (08:00)
[2025-03-19 08:20] LABS: CREATININE 1.06 MG/DL (0.60-1.10); PHOSPHORUS 2.7 MG/DL (2.3-4.5); TOTAL CARBON DIOXIDE 28.3 MMOL/L (24-32); eCRCL 83 ML/MIN; eGFR 75 ML/MIN
[2025-03-19] MEDS: folic acid 1mg/0.2ml inj IV SCH (09:21)
--- NOTE | 2025-03-19 11:12 | RADIOLOGY REPORT ---
CLINICAL HISTORY: Seizure TECHNIQUE: Helical scanning was performed of the head from the skull base to the vertex. Multiplanar reconstructions were performed. This exam was performed according to our departmental dose optimizat ion program. Up-to-date CT equipment and radiation dose reduction techniques are utilized as appropri ate. CTDI 67.8 DLP 123.3 distal COMPARISON: CT CT HEAD on DOS: 02/01/24 FINDINGS: There is no evidence for acute intracranial hemorrhage, acute ischemic changes, mass, mass effect, or extra-axial fluid collection. There is no hydrocephalus or midline shift. There is no effacement of the cerebral sulci and basal subarachnoid cisterns. The santana-white matter differentiation is well oscar ntained. The imaged paranasal sinuses demonstrate mild right maxillary sinus mucosal thickening. IMPRESSION: NO ACUTE INTRACRANIAL ABNORMALITY SEEN.
[2025-03-19 15:39] LABS: CREATININE,URINE RANDOM 105.0 MG/DL; TOTAL PROTEIN,URINE RANDOM 21.8 MG/DL; UA UREA RANDOM 476.0 MG/DL
--- NOTE | 2025-03-19 16:35 | PROGRESS NOTE- Residence ---
Progress Note - Resident Providers to CC Resident Creating Document: JESSICA WHITE RES ~ Central Line/PICC still needed: N\A Miller-Non Protocol Miller Indications Met/Not Met: F/C Indications Not Met Antibiotic Timeout Antibiotic Ordered?: No Subjective Patient was examined bedside. He has tremors in bilateral hands even at rest. Objective Vital Signs Date Time Temp Pulse Resp B/P (MAP) Pulse Ox O2 Delivery O2 Flow Rate FiO2 03/19/25 15:00 98.9 113 15 150/86 (107) 97 Room Air 03/19/25 08:20 N/A 03/19/25 06:50 3.0 Result Diagram: 03/19/2563803/19/25638 General: awake, alert oriented to place, time, and person HEENT: No pallor present, no icterus, moist mucous membranes Neck: No masses and tenderness Resp: Unlabored. Lungs clear to auscultation bilaterally. Chest: Normal expansion Cardiovascular: Regular Rate and rhythm, normal S1 and S2 without murmur, rub or gallop Abdomen: Distended, soft and nontender, no organomegaly, no guarding and rigidity, bowel sounds present Neuro: Hand tremor noticed. No focal weakness in the upper and lower limb muscles, power of the muscles 5/5 bilateral upper and lower extremities, normal reflexes bilaterally. Cranial nerves intact Extremities: No cyanosis,clubbing or edema Skin: Warm and Dry. No lesions Psych: Normal affect Coagulation Studies Laboratory Tests Test 03/19/25 06:40 Prothrombin Time 10.3 SECONDS (9.0-12.0) INR International Normalized Ratio 1.0 INR Coagulation Comments Counseling Services Smoking & Tobacco Cessation: > 10 Minutes Assessment Assessment Patient is a 49-year-old male with past medical history of alcohol use disorder, tobacco dependency, HTN, hyperlipidemia and bipolar disorder who came to the ED due to a seizure episode. Admitted for management of alcohol withdrawal. Plan Plan Alcohol use disorder, alcohol induced seizures Patient is currently alert, awake and hemodynamically stable Systolic blood pressure in the range of 150s after receiving 2 L bolus in the ER yesterday Heart rate in the range of 110s, we will continue to monitor vitals WBC 10.2, AST 100, ALT 96, albumin 3.0, globulin 4.0, alkaline phosphatase 97, b lood alcohol level of 269 Lactic acid is trending down from 3.3-1.[address] abdomen and pelvis shows hepatomegaly and steatosis patient is on moderate alcohol withdrawal protocol and multivitamins rehabilitation services manager and substance navigator consult in place CT head shows no acute intracranial abnormality LASHON likely prerenal secondary to tubular stasis Metabolic acidosis Hypokalemia Creatinine trending down from 2.63-1.06 today, BUN 8 Potassium trending up from 2.9-4 today Hypo/hyperkalemia protocol in place Continue monitoring BMP Tobacco dependency Start nicotine patch Q 24 hour HTN Hyperlipidemia Continue lisinopril 20 mg p.o. daily, atorvastatin 40 mg p.o. daily. Bipolar disorder Continue home meds quetiapine 100 mg p.o. daily CODE STATUS: Full code DVT prophylaxis: Sc heparin 5000 units b.i.d. Analgesia/sedation: Tylenol/Dilaudid as needed Lines/tubes: PIV GI prophylaxis: Protonix Nutrition: NPO Prognosis: Guarded Disposition: Continue medical management Jessica Lange MD PGY1, Internal Medicine [facility] Date of Service: Mar 19, 2025 Billing Provider: MILA LANGLEY MD Common Visit Codes: [id number] INP/OBS CARE(HIGH) JESSICA WHITE, RES Mar 19, 2025 16:35 MILA LANGLEY MD Mar 20, 2025 08:37
--- NOTE | 2025-03-19 19:24 | ELECTROCARDIOGRAPH REPORT ---
[facility] Test Date: 2025-03-19 Test Time: 19:22:07 Pat Name: PALMIRA VELARDE Department: [facility] 3S Patient ID: [id number] Room: [place] [address] B Gender: M Waterproofer Helper: : 1975 Requested By: ROBERT MOLINA Order Number: [id number] Reading MD: Dr. NIALL Mabry Measurements Intervals [place] Rate: 118 P: 52 AL: 158 QRS: 51 QRSD: 89 T: 34 QT: 325 QTc: 456 Interpretive Statements Sinus tachycardia RSR' in V1 or V2, right VCD or RVH Electronically Signed On 03-20-2025 16:26:[address] NIALL Mabry Please click the below link to view image of tracing.
[2025-03-20] VITALS (9 sets, daily range): BP systolic 110–160; BP diastolic 77–101; PULSE 106–124; RESP 18–25; TEMP 97.3–98; O2SAT 94–100
[2025-03-20 08:03] LABS: MEAN PLATELET VOLUME 8.2 FL (7.4-10.4); RED CELL DISTRIBUTION WIDTH 13.0 % (11.5-14.5)
[2025-03-20 08:06] LABS: INR 1.0 INR
[2025-03-20 08:24] LABS: CREATININE 0.86 MG/DL (0.60-1.10); PHOSPHORUS 3.2 MG/DL (2.3-4.5); TOTAL CARBON DIOXIDE 27.6 MMOL/L (24-32); eCRCL 103 ML/MIN; eGFR > 90 ML/MIN
[2025-03-20 10:37] LABS: LEUKOCYTE ESTERASE ,URINE TRACE (Neg); NITRITES, URINE NEGATIVE (Neg); OCCULT BLOOD,URINE NEGATIVE (Neg)
[2025-03-20 10:46] LABS: UA COLLECTION TYPE NON-SPECIFIED
[2025-03-20 10:47] LABS: MUCUS STRANDS NONE SEEN /LPF (Neg); SQUAMOUS EPITHELIAL CELL,UR FEW /LPF (FEW)
--- NOTE | 2025-03-20 18:43 | PROGRESS NOTE- Residence ---
Progress Note - Resident Providers to CC Resident Creating Document: JESSICA WHITE, GIORGIO ~ Central Line/PICC still needed: N\A Miller-Non Protocol Miller Indications Met/Not Met: F/C Indications Not Met Antibiotic Timeout Antibiotic Ordered?: No Subjective Patient was examined bedside. He has tremors in bilateral hands even at rest. Sleeping well. No acute symptoms overnight. They were few episodes of tachycardia recorded in the telemetry with a heart rate going up to 140s, sinus rhythm. No symptoms of palpitation, chest pain, headache, dizziness. Objective Vital Signs Date Time Temp Pulse Resp B/P (MAP) Pulse Ox O2 Delivery O2 Flow Rate FiO2 03/20/25 15:00 97.7 124 25 114/87 (96) 98 Room Air 03/20/25 08:00 3.0 N/A Result Diagram: 03/20/2563203/20/25632 General: awake, alert oriented to place, time, and person HEENT: No pallor present, no icterus, moist mucous membranes Neck: No masses and tenderness Resp: Unlabored. Lungs clear to auscultation bilaterally. Chest: Normal expansion Cardiovascular: Regular Rate and rhythm, normal S1 and S2 without murmur, rub or gallop Abdomen: Distended, soft and nontender, no organomegaly, no guarding and rigidity, bowel sounds present Neuro: Hand tremor noticed. No focal weakness in the upper and lower limb muscles, power of the muscles 5/5 bilateral upper and lower extremities, normal reflexes bilaterally. Cranial nerves intact Extremities: No cyanosis,clubbing or edema Skin: Warm and Dry. No lesions Psych: Normal affect Coagulation Studies Laboratory Tests Test 03/20/25 06:33 Prothrombin Time 10.0 SECONDS (9.0-12.0) INR International Normalized Ratio 1.0 INR Coagulation Comments Assessment Assessment Patient is a 49-year-old male with past medical history of alcohol use disorder, tobacco dependency, HTN, hyperlipidemia and bipolar disorder who came to the ED due to a seizure episode. Admitted for management of alcohol withdrawal. Plan Plan Alcohol use disorder, alcohol induced seizures Patient is currently alert, awake and hemodynamically stable Systolic blood pressure in the range of 150s after receiving 2 L bolus in the ER yesterday Heart rate in the range of 110s, we will continue to monitor vitals WBC 10.2, AST 100, ALT 96, albumin 3.0, globulin 4.0, alkaline phosphatase 97, b lood alcohol level of 269 Lactic acid is trending down from 3.3-1.[address] abdomen and pelvis shows hepatomegaly and steatosis patient is on moderate alcohol withdrawal protocol and multivitamins client services director and substance navigator consult in place CT head shows no acute intracranial abnormality 03/20/2025: Systolic blood pressure in 150s, tachycardia ranging from 110s to 140s, sinus rhythm. Normal P-wave morphology, QRS complex and T-wave Since the protocol from moderate to heavy alcohol withdrawal syndrome LASHON likely prerenal secondary to tubular stasis Metabolic acidosis Hypokalemia Creatinine trending down from 2.63-1.06 today, BUN 8 Potassium trending up from 2.9-4 today Hypo/hyperkalemia protocol in place 03/20/2025: Creatinine 0.86, potassium 3.5. Continue monitoring BMP Tobacco dependency Start nicotine patch Q 24 hour HTN Hyperlipidemia Continue lisinopril 20 mg p.o. daily, atorvastatin 40 mg p.o. daily. Bipolar disorder Continue home meds quetiapine 100 mg p.o. daily CODE STATUS: Full code DVT prophylaxis: Sc heparin 5000 units b.i.d. Analgesia/sedation: Tylenol/Dilaudid as needed Lines/tubes: PIV GI prophylaxis: Protonix Nutrition: NPO Prognosis: Guarded Disposition: Continue medical management Jessica Lange MD PGY1, Internal Medicine [facility] Date of Service: Mar 20, 2025 Billing Provider: MILA LANGLEY MD Common Visit Codes: [id number] INP/OBS CARE(HIGH) JESISCA WHITE, RES Mar 20, 2025 18:43 MILA LANGLEY MD Mar 21, 2025 08:17
[2025-03-20] MEDS ORDERED: loperamide 2mg capsule PO PRN (18:45)
[2025-03-20] MEDS ORDERED: haloperidol lactate 5mg/ml inj IM PRN (18:45)
[2025-03-20] MEDS: cloNIDine 0.1 MG/24 HOUR patch (7 day patch) TD SCH (18:45)
[2025-03-20] MEDS: loperamide 2mg capsule PO ONE (19:21)
[2025-03-20] MEDS ORDERED: diazepam inj 5 MG/ML inj. IV PRN (20:05)
[2025-03-21] VITALS (7 sets, daily range): BP systolic 109–146; BP diastolic 65–92; PULSE 96–109; RESP 16–27; TEMP 97.7–98.6; O2SAT 91–97
[2025-03-21 06:02] LABS: MEAN PLATELET VOLUME 8.5 FL (7.4-10.4); RED CELL DISTRIBUTION WIDTH 12.9 % (11.5-14.5)
[2025-03-21 06:09] LABS: INR 1.0 INR
[2025-03-21 06:35] LABS: CREATININE 0.71 MG/DL (0.60-1.10); PHOSPHORUS 4.2 MG/DL (2.3-4.5); TOTAL CARBON DIOXIDE 27.3 MMOL/L (24-32); eCRCL 124 ML/MIN; eGFR > 90 ML/MIN
[2025-03-21 06:40] LABS: BASOPHILS % (MANUAL) 2.0 % (0-1); EOSINOPHILS % (MANUAL) 1.0 % (0-6); LYMPHOCYTES % (MANUAL) 25.0 % (21-51); MONOCYTES % (MANUAL) 3.0 % (2-12); NEUTROPHILS % (MANUAL) 69.0 % (42-75); PLATELET ESTIMATE NORMAL
[2025-03-21] MEDS: nicotine 14mg patch - 24hr TD SCH (06:58)
[2025-03-21] MEDS: nicotine 21mg patch - 24 hr TD SCH (08:00)
[2025-03-21] MEDS: normal saline 1000ml 1,000 ML IV SCH (10:14)
--- NOTE | 2025-03-21 19:28 | PROGRESS NOTE- Residence ---
Progress Note - Resident Providers to CC Resident Creating Document: LALO BAR RES ~ Antibiotic Timeout Antibiotic Ordered?: No Subjective Patient was examined bedside. he is sleeping well and noted hand tremors when it stretched Objective Vital Signs Date Time Temp Pulse Resp B/P (MAP) Pulse Ox O2 Delivery O2 Flow Rate FiO2 03/21/25 15:00 97.7 96 27 109/65 (80) 91 Room Air 03/21/25 08:00 N/A 03/20/25 08:00 3.0 Result Diagram: 03/21/2524 03/21/25 0524 Coagulation Studies Laboratory Tests Test 03/21/25 05:24 Prothrombin Time 10.0 SECONDS (9.0-12.0) INR International Normalized Ratio 1.0 INR Coagulation Comments Assessment Assessment Patient is a 49-year-old male with past medical history of alcohol use disorder, tobacco dependency, HTN, hyperlipidemia and bipolar disorder who came to the ED due to a seizure episode. Admitted for management of alcohol withdrawal. Plan Plan Alcohol use disorder, alcohol induced seizures Patient is currently alert, awake and hemodynamically stable Systolic blood pressure in the range of 150s after receiving 2 L bolus in the ER yesterday Heart rate in the range of 110s, we will continue to monitor vitals WBC 10.2, AST 100, ALT 96, albumin 3.0, globulin 4.0, alkaline phosphatase 97, b lood alcohol level of 269 Lactic acid is trending down from 3.3-1.[address] abdomen and pelvis shows hepatomegaly and steatosis patient is on moderate alcohol withdrawal protocol and multivitamins guidance services coordinator and substance navigator consult in place CT head shows no acute intracranial abnormality 03/20/2025: Systolic blood pressure in 150s, tachycardia ranging from 110s to 140s, sinus rhythm. Normal P-wave morphology, QRS complex and T-wave Since the protocol from moderate to heavy alcohol withdrawal syndrome 03/20/25: Continue the medical management LASHON likely prerenal secondary to tubular stasis Metabolic acidosis Hypokalemia Creatinine trending down from 2.63-1.06 today, BUN 8 Potassium trending up from 2.9-4 today Hypo/hyperkalemia protocol in place 03/20/2025: Creatinine 0.86, potassium 3.5. Continue monitoring BMP 03/21/25 Cr:0.71, BUN 8,K4 Continue BMP monitoring Tobacco dependency Start nicotine patch Q 24 hour HTN Hyperlipidemia Continue lisinopril 20 mg p.o. daily, atorvastatin 40 mg p.o. daily. Bipolar disorder Continue home meds quetiapine 100 mg p.o. daily CODE STATUS: Full code DVT prophylaxis: Sc heparin 5000 units b.i.d. Analgesia/sedation: Tylenol/Dilaudid as needed Lines/tubes: PIV GI prophylaxis: Protonix Nutrition: NPO Prognosis: Guarded Disposition: Continue medical management lalo bar PGY1 Date of Service: Mar 21, 2025 Billing Provider: MILA LANGLEY MD Common Visit Codes: [id number] INP/OBS CARE(HIGH) LALO BAR, GIORGIO Mar 21, 2025 19:28 MILA LANGLEY MD Mar 22, 2025 06:40
[2025-03-22] VITALS (7 sets, daily range): BP systolic 132–154; BP diastolic 77–100; PULSE 96–113; RESP 16–23; TEMP 97.8–98.9; O2SAT 94–98
[2025-03-22 06:55] LABS: MEAN PLATELET VOLUME 7.9 FL (7.4-10.4); RED CELL DISTRIBUTION WIDTH 13.0 % (11.5-14.5)
[2025-03-22 07:01] LABS: INR 1.0 INR
[2025-03-22 07:21] LABS: CREATININE 0.78 MG/DL (0.60-1.10); PHOSPHORUS 3.9 MG/DL (2.3-4.5); TOTAL CARBON DIOXIDE 26.8 MMOL/L (24-32); eCRCL 113 ML/MIN; eGFR > 90 ML/MIN
--- NOTE | 2025-03-22 12:08 | PROGRESS NOTE- Residence ---
Progress Note - Resident Providers to CC Resident Creating Document: MISTI RIBERA RES ~ Antibiotic Timeout Antibiotic Ordered?: Yes Subjective Patient was seen and examined at the bedside. He is complaining of left arm pain and redness. Patient is today awake and alert, tolerating oral diet, no seizures or new neurological events reported. Objective Vital Signs Date Time Temp Pulse Resp B/P (MAP) Pulse Ox O2 Delivery O2 Flow Rate FiO2 03/22/25 11:00 98.8 113 22 139/88 (105) 95 Room Air 03/22/25 08:00 N/A 03/20/25 08:00 3.0 Result Diagram: 03/22/25 0617 03/22/25 0617 General: awake, alert oriented to place, time, and person HEENT: No pallor present, no icterus, moist mucous membranes Neck: No masses and tenderness Resp: Unlabored. Lungs clear to auscultation bilaterally. Cardiovascular: Regular Rate and rhythm, normal S1 and S2 without murmur, rub or gallop Abdomen: Mildly distended, soft and nontender, no organomegaly, no guarding and rigidity, bowel sounds present Neuro: Rest hand tremor noticed. No focal weakness in the upper and lower limb muscles, power of the muscles 5/5 bilateral upper and lower extremities, normal reflexes bilaterally. Cranial nerves intact Extremities: No cyanosis,clubbing or edema Skin: Warm and Dry. No lesions Psych: Normal affect Coagulation Studies Laboratory Tests Test 03/22/25 06:17 Prothrombin Time 10.2 SECONDS (9.0-12.0) INR International Normalized Ratio 1.0 INR Coagulation Comments Assessment Assessment Patient is a 49-year-old male with past medical history of alcohol use disorder, tobacco dependency, HTN, hyperlipidemia and bipolar disorder who came to the ED due to a seizure episode. Admitted for management of alcohol withdrawal. Plan Plan Alcohol use disorder, alcohol induced seizures Patient is currently alert, awake and hemodynamically stable Systolic blood pressure in the range of 150s after receiving 2 L bolus in the ER yesterday Heart rate in the range of 110s, we will continue to monitor vitals WBC 10.2, AST 100, ALT 96, albumin 3.0, globulin 4.0, alkaline phosphatase 97, blood alcohol level of 269 Lactic acid is trending down from 3.3-1.6 CT abdomen and pelvis shows hepatomegaly and steatosis patient is on moderate alcohol withdrawal protocol and multivitamins administrative services officer and substance navigator consult in place CT head shows no acute intracranial abnormality 03/22/2025: Patient is still tachycardic from 102-113bpm Rest hand tremors, but stable Intense alcohol withdrawal protocol Left arm cellulitis Lactic acid 1.6, WBC 9.4 New onset erythema, warmth and pain Started on IV vancomycin Monitor for worsening symptoms LASHON likely prerenal secondary to tubular stasis Metabolic acidosis Hypokalemia Creatinine 2.63, BUN 10 at presentation Potassium 2.9 Hypo/hyperkalemia protocol in place 03/22/25 Cr:0.78, BUN 10, K 3.9 Continue BMP monitoring Tobacco dependency Start nicotine patch Q 24 hour HTN - well controlled Hyperlipidemia Continue lisinopril 20 mg p.o. daily, atorvastatin 40 mg p.o. daily. Bipolar disorder Continue home meds quetiapine 100 mg p.o. daily Code Status: Full code DVT prophylaxis: Heparin Analgesia/sedation: Morphine Line/tube: PIV GI prophylaxis: None Nutrition: Regular diet Prognosis: Guarded Disposition: Continue medical treatment. Date of Service: Mar 22, 2025 Billing Provider: MILA LANGLEY MD Common Visit Codes: [id number] INP/OBS CARE(HIGH) MISTI RIBERA, RES Mar 22, 2025 12:08 MILA LANGLEY MD Mar 22, 2025 22:07
[2025-03-22] MEDS: vancomycin/NS 1 GM ADD-VANTAGE 250 ML X 1 DOSE IV SCH (12:15)
[2025-03-23 02:00] VITALS: BP 154/98; PULSE 96; RESP 22; TEMP 98.6; O2SAT 92
[2025-03-23 05:35] LABS: MEAN PLATELET VOLUME 7.8 FL (7.4-10.4); RED CELL DISTRIBUTION WIDTH 13.2 % (11.5-14.5)
[2025-03-23 05:46] LABS: INR 1.0 INR
[2025-03-23 06:00] VITALS: BP 116/73; PULSE 76; RESP 22; TEMP 97.9; O2SAT 96
[2025-03-23 06:01] LABS: CREATININE 0.93 MG/DL (0.60-1.10); PHOSPHORUS 4.0 MG/DL (2.3-4.5); TOTAL CARBON DIOXIDE 26.7 MMOL/L (24-32); eCRCL 95 ML/MIN; eGFR 87 ML/MIN
[2025-03-23 08:00] VITALS: RESP 12; O2SAT 99
[2025-03-23] MEDS: VANCOMYCIN LEVEL IV ONE (10:56)
[2025-03-23 11:00] VITALS: BP 144/71; PULSE 84; RESP 17; TEMP 97.6; O2SAT 97
[2025-03-23] MEDS ORDERED: IVER3TAB2 PO (11:27)
[2025-03-23] MEDS ORDERED: AMOX-580 PO (11:27)
--- NOTE | 2025-03-23 13:45 | DISCHARGE SUMMARY-Residence ---
Discharge Summary Providers to CC Resident Creating Document: SAMSON RIBERA RES ~ Discharge Summary Admission Diagnosis: ETOH withdrawal Hospital Course DATE OF ADMISSION: 03/18/2025 DATE OF DISCHARGE: 03/23/[address] 03/18/2025: No acute abdominopelvic abnormalities. Hepatomegaly with hepatic steatosis. CHEST X-RAY 03/18/2025: No acute cardiopulmonary disease. HEAD CT 03/19/2025: No intracranial abnormality. Laboratory Tests Test 03/21/25 14:44 03/21/25 22:14 03/22/25 02:24 03/22/25 06:17 Glucometer 144 mg/dl 118 mg/dl 108 mg/dl White Blood Count 9.4 X10'3 Red Blood Count 4.15 X10'6 Hemoglobin 14.2 g/dl Hematocrit 41.1 % Mean Corpuscular Volume 98.9 FL Mean Corpuscular Hemoglobin 34.1 PG Mean Corpuscular Hemoglobin Concent 34.5 g/dL Red Cell Distribution Width 13.0 % Platelet Count 239 X10'3 Mean Platelet Volume 7.9 FL Neutrophils (%) (Auto) 68.9 % Lymphocytes (%) (Auto) 19.6 % Monocytes (%) (Auto) 5.3 % Eosinophils (%) (Auto) 5.3 % Basophils (%) (Auto) 0.9 % Neutrophils # (Auto) 6.5 X10'3 Lymphocytes # (Auto) 1.8 X10'3 Monocytes # (Auto) 0.5 X10'3 Eosinophils # (Auto) 0.5 X10'3 Basophils # (Auto) 0.1 X10'3 CBC Comment Prothrombin Time 10.2 SECONDS INR International Normalized Ratio 1.0 INR Coagulation Comments Sodium Level 140 MMOL/L Potassium Level 3.9 MMOL/L Chloride Level 104 MMOL/L Carbon Dioxide Level 26.8 MMOL/L Anion Gap 9 Blood Urea Nitrogen 10 MG/DL Creatinine 0.78 MG/DL Estimated GFR/1.73 m2 > 90 ML/MIN BUN/Creatinine Ratio 12.8 Glucose Level 96 MG/DL Calcium Level 8.9 MG/DL Phosphorus Level 3.9 MG/DL Magnesium Level 1.8 MG/DL Total Bilirubin 0.5 MG/DL Aspartate Amino Transf (AST/SGOT) 51 U/L Alanine Aminotransferase (ALT/SGPT) 77 U/L Alkaline Phosphatase 92 IU/L Total Protein 7.0 G/DL Albumin 2.7 G/DL Globulin 4.3 G/DL Albumin/Globulin Ratio 0.6 Amylase Level 93 U/L Lipase 18 U/L Chemistry Comments Test 03/22/25 08:31 03/22/25 14:33 03/22/25 20:24 03/23/25 02:56 Glucometer 108 mg/dl 163 mg/dl 127 mg/dl 111 mg/dl Test 03/23/25 05:08 03/23/25 08:07 03/23/25 10:49 White Blood Count 9.8 X10'3 Red Blood Count 4.06 X10'6 Hemoglobin 13.8 g/dl Hematocrit 40.1 % Mean Corpuscular Volume 98.6 FL Mean Corpuscular Hemoglobin 33.9 PG Mean Corpuscular Hemoglobin Concent 34.4 g/dL Red Cell Distribution Width 13.2 % Platelet Count 229 X10'3 Mean Platelet Volume 7.8 FL Neutrophils (%) (Auto) 67.2 % Lymphocytes (%) (Auto) 20.5 % Monocytes (%) (Auto) 6.8 % Eosinophils (%) (Auto) 4.8 % Basophils (%) (Auto) 0.7 % Neutrophils # (Auto) 6.6 X10'3 Lymphocytes # (Auto) 2.0 X10'3 Monocytes # (Auto) 0.7 X10'3 Eosinophils # (Auto) 0.5 X10'3 Basophils # (Auto) 0.1 X10'3 CBC Comment Prothrombin Time 10.0 SECONDS INR International Normalized Ratio 1.0 INR Coagulation Comments Sodium Level 138 MMOL/L Potassium Level 3.8 MMOL/L Chloride Level 105 MMOL/L Carbon Dioxide Level 26.7 MMOL/L Anion Gap 6 Blood Urea Nitrogen 10 MG/DL Creatinine 0.93 MG/DL Estimated GFR/1.73 m2 87 ML/MIN BUN/Creatinine Ratio 10.8 Glucose Level 99 MG/DL Calcium Level 8.4 MG/DL Phosphorus Level 4.0 MG/DL Total Bilirubin 0.5 MG/DL Aspartate Amino Transf (AST/SGOT) 40 U/L Alanine Aminotransferase (ALT/SGPT) 66 U/L Alkaline Phosphatase 89 IU/L Total Protein 6.8 G/DL Albumin 2.8 G/DL Globulin 4.0 G/DL Albumin/Globulin Ratio 0.7 Amylase Level 101 U/L Lipase 21 U/L Chemistry Comments Glucometer 102 mg/dl Vancomycin Level Trough 12.8 ug/mL Discharge Diagnosis\Comment: Alcohol-induced seizure; alcohol use disorder; left arm cellulitis; scabies. Operations\Procedures: None Consultants: None Complications: None Condition on DC: Stable New Medications: Amox Tr/Potassium Clavulanate 875/125 MG (Augmentin 875/125 MG) 875 Mg-125 Mg Tablet 1 TAB PO BID for 7 Days, #14 TAB Ivermectin (Ivermectin) 3 Mg Tablet 7 TAB PO ONCE for 1 Day, #7 TAB 0 Refills Continued Medications: Atorvastatin Calcium* (Lipitor*) 40 Mg Tablet 1 TAB PO DAILY for 30 Days, #30 TAB Folic Acid* (Folic Acid*) 0.4 Mg Tablet 1 TAB PO DAILY for 30 Days, #30 TAB Lisinopril (Lisinopril) 20 Mg Tablet 1 TAB PO DAILY for 30 Days, #30 TAB Multivitamin (Multi Vitamin Daily) 1 Each Tablet 1 TAB PO DAILY for 30 Days, #30 TAB 0 Refills Quetiapine Fumarate* (Seroquel*) 100 Mg Tablet 1 TAB PO DAILY, TAB Discharge Summary: History of present illness from presentation Patient is a 49-year-old male with past medical history of alcohol use disorder, tobacco dependency, HTN, hyperlipidemia and bipolar disorder who came to the ED due to a seizure episode. Patient reports that earlier today he presented with a single seizure episode, he is unsure at what time it happened or how long it lasted, but he believes it was in the morning, he is unsure if it was witnessed, he is also not sure about the characteristics of the seizure but he believes he was shaking. He does not have much recollection of the event. He denies any involuntary bowel movement or bladder movement. He also denies striking his head. He endorses significant alcohol intake, about 1 gal of vodka a day, and he states that today he did not drink as much. He reports that the last time he had a seizure was also from alcohol withdrawal. Hospital course This is a 49-year-old male patient with past medical history of alcohol use disorder, hypertension, hyperlipidemia, admitted for an unwitnessed episode of seizure most likely related to alcohol withdrawal. The patient had altered level of consciousness, elevated lactic acid, hypokalemia and acute kidney injury. Abdomen and head CT were unrevealing. The patient improved significantly with IV fluids. During the course of his hospitalization the patient developed signs of left arm cellulitis which was treated with vancomycin for one day with excellent response. The cellulitis was most likely secondary to scabies infestation since he was found to have multiple punctated regions lesions in the left arm, chest and back. The patient is today without any new complaints, tolerating oral diet, stable to be discharged. Discharge physical exam General: awake, alert oriented to place, time, and person HEENT: No pallor present, no icterus, moist mucous membranes Neck: No masses and tenderness Resp: Unlabored. Lungs clear to auscultation bilaterally. Cardiovascular: Regular Rate and rhythm, normal S1 and S2 without murmur, rub or gallop Abdomen: Mildly distended, soft and nontender, no organomegaly, no guarding and rigidity, bowel sounds present Neuro: Rest hand tremor noticed. No focal weakness in the upper and lower limb muscles, power of the muscles 5/5 bilateral upper and lower extremities, normal reflexes bilaterally. Cranial nerves intact Extremities: No cyanosis,clubbing or edema Skin: Warm and Dry. Erythema, warmth and pain to palpation in the left forearm. Multiple punctated pruriginous lesions in the left arm, chest and back. Discharge medications Augmentin b.i.d. for seven days Ivermectin once Continue home medication Discharge instructions Follow up with your primary care doctor in 1-2 weeks Take Augmentin twice a day for 7 days Take ivermectin once Avoid alcohol intake Continue home medication Come back in case of severe vomiting, abdominal pain, chest pain, shortness of breath or any concerning symptom *Problems/Diagnosis: (1) Seizure Status: Resolved (2) Cellulitis and abscess of upper extremity Status: Acute (3) Scabies Status: Acute (4) Alcoholic intoxication Status: Acute (5) LASHON (acute kidney injury) Status: Resolved Permanent Comment: Secondary to vasomotor nephropathy Last Edited By: Samson Ribera - Resident on Mar 23, 2025 13:28 Total Time Spent on D/C: > 30 Minutes Date of Service: Mar 23, 2025 Billing Provider: SAMSON RIBERA RES Common Visit Codes: 35449-XAB/OBS DISCH DAY >30min SAMSON RIBERA RES Mar 23, 2025 13:24 MILA LANGLEY MD Mar 24, 2025 06:30
[2025-03-23 15:00] VITALS: BP 168/94; PULSE 89; RESP 17; TEMP 98; O2SAT 98
[2025-03-23] MEDS ORDERED: VANCOmycin 1250MG/NS 250ml Bag 250 ML IV SCH (19:00)
[2025-03-24] MEDS ORDERED: VANCOMYCIN LEVEL IV ONE (18:30)
== END 2025-03-23 17:52 | disposition home or self-care (01) | DRG 207 ==
LOC: ER 15:45 → ED HOLD 20:05 → PCU 3S 22:10
PROVIDERS: ADMIT Internal Medicine; ATTEND Internal Medicine
DX: I95.9 Hypotension, unspecified (principal); N17.9 Acute kidney failure, unspecified; E87.20 Acidosis, unspecified; R56.9 Unspecified convulsions; B86 Scabies; E87.6 Hypokalemia; F10.239 Alcohol dependence with withdrawal, unspecified; I10 Essential (primary) hypertension; F31.9 Bipolar disorder, unspecified; L03.114 Cellulitis of left upper limb; F41.9 Anxiety disorder, unspecified; Z85.51 Personal history of malignant neoplasm of bladder; Z59.00 Homelessness unspecified; Z88.0 Allergy status to penicillin
CPT/HCPCS: 36415; 70450; 71045; 74176; 80053; 80202; 80305; 80320; 81001; 82150; 82570; 82948; 83036; 83605; 83690; 83735; 84100; 84132; 84133; 84145; 84156; 84300; 84484; 84540; 85007; 85025; 85610; 85651; 86140; 87081; 87088; 87207; 93005; 96361; 96365; 96375; 99291; A4615; A6402; A6455; G0378; J1644; J2060; J3360; J3373; J3411; J3480; J3490; J7030; J7070; J7120

== ENCOUNTER 2025-05-23 23:51 | Emergency (ER) | payer MEDICAID ==
[~2025-05-23] VITALS: Ht 175.3 cm; Wt 100.0 kg
[~2025-05-23 23:51] MED LIST changes: +ATOR40TA PO; +BUDE10.2 INH; -FOLI1TAB27 PO; +LORA-269 PO; -LURA40TA2 PO; +MULT-1085 PO; -PANT-47 PO; +QUET-1 PO
[2025-05-23 23:57] VITALS: TEMP 97.8
[2025-05-24] MEDS: normal saline 1000ML IV soln IVB ONE (00:17)
[2025-05-24] MEDS: normal saline 1000ml 1,000 ML IV ONE (00:17)
[2025-05-24 00:45] LABS: MEAN PLATELET VOLUME 8.1 FL (7.4-10.4); RED CELL DISTRIBUTION WIDTH 14.5 % (11.5-14.5)
[2025-05-24 00:57] LABS: APTT 28 SECONDS (22-32); INR 1.0 INR
[2025-05-24 00:59] LABS: CREATININE 0.90 MG/DL (0.60-1.10); TOTAL CARBON DIOXIDE 26.5 MMOL/L (24-32); eCRCL 100 ML/MIN; eGFR 90 ML/MIN
--- NOTE | 2025-05-24 01:12 | Physician Documentation ---
History of Present Illness ~ Chief Complaint: ETOH Stated Complaint: ETOH M ALS Time Seen by MD: 00:00 Primary Medical Doctor: NO PMD Mode of Arrival: EMS HPI This is a 50-year-old gentleman very well known to this emergency department with a innumerable visits for alcohol intoxication, recent admission for alcohol withdrawal, who presents for evaluation of altered mental status. Evidently he was recently discharged after being detox from alcohol, went back to drinking, he drank half a gal of vodka and was found to be poorly responsive. EMS transported him here. He is status with a GCS of seven in the field and improved throughout the transferred ride. At the time of my examination the patient is responding to tactile stimuli with a moaning, moves all four extremities, attempts to answer questions. Denies any complaints. History, review of systems, physical examination are limited secondary to patient's clinical condition. Tetanus within 5 years?: No (unknown) Medication Reconciliation Allergies: Coded Allergies: Penicillins (Verified Allergy, Unknown, THROAT SWELLS, 05/09/25) Scheduled Atorvastatin Calcium* (Lipitor*), 1 TAB PO DAILY, (Reported) Budesonide/Formoterol Fumarate (Symbicort 160-4.5 Mcg Inhaler), 2 PUFFS INH Q12H Folic Acid* (Folic Acid*), 1 TAB PO DAILY, (Reported) Lisinopril (Lisinopril), 1 TAB PO DAILY Multivitamin (Multi Vitamin Daily), 1 TAB PO DAILY, (Reported) Quetiapine Fumarate* (Seroquel*), 1 TAB PO DAILY, (Reported) Scheduled PRN Lorazepam (Ativan), 1 TAB PO Q12H PRN PRN for anxiety Past Medical History Past Medical History: CVA/TIA/Stroke, Hypertension, *CANCER*, Anxiety, Bipolar Past Surgical History: noncontributory Patient History: Anxiety disorder Sister FH: alcoholism FATHER Brother FH: bipolar disorder Sister FH: brain cancer FATHER FH: hypertension Brother FH: lung cancer FATHER FH: schizophrenia FATHER Hepatitis C Sister Alcohol Use: Abuse Drug Use: none Lives with: Other Lives In: Homeless Occupation: unemployed Review of Systems ROS Limited as above Physical Exam Vital Signs: Temperature: 97.8, Source: Axillary, Heart Rate: 96, Respiratory Rate: 17, BP: 131/88, Pulse Oximetry: 92, Weight: 100.000 Physical Exam GENERAL: Somnolent, GCS [id number], protecting his airway. Attempts to answer questions. Attempts to follow commands. Various strong odor of alcohol. Examined immediately upon arrival in bed 5. HEENT: Atraumatic, normocephalic, pupils equal, extraocular muscles intact, sclerae anicteric, mucus membranes moist, oropharynx is clear, no stridor. NECK: supple, full active range of motion, trachea midline, no thyromegaly, no lymphadenopathy, no JVD. CARDIOVASCULAR: regular rate/rhythm, no murmurs/gallops/rubs, Pulses are 2+ in all extremities and symmetric. Capillary refill less than 2 seconds. PULMONARY: Nonlabored, good air movement ,no respiratory distress, speaking in full sentences, clear to auscultation bilaterally, no wheezing, no ronchi, no rales, no accessory muscle use. GASTROINTESTINAL: Soft, non-tender, non-distended, normal active bowel sounds, no organomegaly, no pulsatile masses, no CVA tenderness. NEUROLOGIC: Lucid with altered mental status. Normal facial symmetry. Moves all extremities symmetrically and with purpose. No truncal ataxia. Speech is slurred consistent with the alcohol intoxication, no obvious focal deficits. MUSCULOSKELETAL: There is full range of motion of all extremities. There is no joint pain or joint swelling or joint erythema. There is no muscle pain or tenderness or swelling. EXTREMITIES: warm, well-perfused, no cyanosis, no clubbing, no edema, no acute deformities. Skin: Extensive tattoos including a large swastika on the right anterior chest, large iron cross and a worried Hali on the abdomen. warm, dry, no rashes or lesions, no jaundice, no petechiae orpurpura. No ecchymosis. PSYCHIATRIC: Unable to assess Progress Results/Orders Results/Orders Orders - GILSON MICHAUD DO Electrocardiogram (05/24/25 00:01) Urinalysis, Cult If Indicated (05/24/25 00:01) Chest,Single View (05/24/25 00:01) Monitor (05/24/25 00:01) Saline Lock (05/24/25 00:01) Straight Cath For Urine Sample (05/24/25 00:01) Completed Orders - GILSON MICHAUD DO Ethanol (05/24/25 00:01) Cbc/Diff (05/24/25 00:01) Pt Inr (05/24/25 00:01) PTT (05/24/25 00:01) Chest,Single View (05/24/25 00:01) MG (05/24/25 00:01) Normal Saline 1000ml (0.9% Sodium Chlori (05/24/25 00:05) Hs Troponin I W Calculations (05/24/25 00:01) CMP (05/24/25 00:01) Normal Saline 1000ml (0.9% Sodium Chlori (05/24/25 00:05) Medications Received in ER Medications (Trade) Dose Ordered Sig/Martina Route PRN Reason Start Time Stop Time Status Last Admin Dose Admin (0.9% sodium chloride (NS) 1000ml IV soln) 1,000 ml ONCE ONCE IVB 05/24/25 00:05 05/24/25 00:06 DC 05/24/25 00:17 1,000 ML Sodium Chloride 1,000 ml @ 1,000 mls/hr ONCE ONCE IV 05/24/25 00:05 05/24/25 01:04 DC 05/24/25 00:17 1,000 MLS/HR Vital Signs 05/23/25 05/24/25 05/24/25 05/24/25 23:57 00:05 02:31 05:07 Temp 97.8 Pulse 96 99 98 Resp 20 17 16 17 B/P (MAP) 131/88 132/69 (90) 114/83 (93) Pulse Ox 92 98 98 Laboratory Tests Test 05/24/25 00:01 White Blood Count 10.9 Red Blood Count 4.60 L Hemoglobin 15.4 Hematocrit 44.2 Mean Corpuscular Volume 96.2 Mean Corpuscular Hemoglobin 33.4 H Mean Corpuscular Hemoglobin Concent 34.8 Red Cell Distribution Width 14.5 Platelet Count 409 Mean Platelet Volume 8.1 Neutrophils (%) (Auto) 58.7 Lymphocytes (%) (Auto) 32.7 Monocytes (%) (Auto) 4.6 Eosinophils (%) (Auto) 2.6 Basophils (%) (Auto) 1.4 H Neutrophils # (Auto) 6.4 Lymphocytes # (Auto) 3.6 Monocytes # (Auto) 0.5 Eosinophils # (Auto) 0.3 Basophils # (Auto) 0.1 CBC Comment Prothrombin Time 10.2 INR International Normalized Ratio 1.0 Activated Partial Thromboplast Time 28 Coagulation Comments Sodium Level 143 Potassium Level 3.7 Chloride Level 106 Carbon Dioxide Level 26.5 Anion Gap 11 Blood Urea Nitrogen 9 Creatinine 0.90 Estimated GFR/1.73 m2 90 BUN/Creatinine Ratio 10.0 Glucose Level 92 Calcium Level 7.9 L Magnesium Level 2.2 Total Bilirubin 0.2 Aspartate Amino Transf (AST/SGOT) 64 H Alanine Aminotransferase (ALT/SGPT) 107 H Alkaline Phosphatase 111 Troponin I High Sensitivity 12 Total Protein 8.4 H Albumin 3.3 L Globulin 5.1 H Albumin/Globulin Ratio 0.6 L Chemistry Comments Ethyl Alcohol Level 406 *H Medical Decision Making Additional information obtaine: old records, other (EMS, record review) Findings Facility Status: ED Holds, [facility] process The plan was discussed with the patient, who demonstrates clear understanding of the plan and is in agreement with the plan unless otherwise noted in the chart. All questions have been answered, all concerns were addressed unless otherwise documented. I was available throughout their ED stay for frequent reassessment and questions. Differential Diagnoses (considered and possible or likely): [Most likely represents alcohol intoxication, less likely drug toxidrome, less likely hypoglycemia, electrolyte derangement. No evidence of trauma. No evidence of focal deficits. Unlikely to be meningitis, encephalitis, UTI or pneumonia.] ??Differential Diagnoses (considered and unlikely, not requiring evaluation currently): [See above] MDM Data Please see HPI for the following: Independent Historians and external Records Review. Historian: [Patient] Independent Historians: ?[EMS, record review] Medication Management: [Reviewed medication list] Social History and determinants: [Reviewed] Please see the body of the note for the following: Any independent interpretations of ECG, imaging studies. All vitals signs/haemodynamics, ordered tests were independently reviewed and interpreted by myself. Nursing triage complaint and vitals reviewed, additional nursing notes were reviewed as available and I agree unless otherwise noted or documented in contradiction in the chart Vital Signs: Independently reviewed Labs: Independently interpreted Imaging: Independently interpreted Old Medical Records: Independently reviewed, see HPI for relevant summary and information Pulse Oximetry: [98%] interpreted as [normal on room air] by me [Piping Manager: [Regular Rate, Regular rhythm, no ectopy, NSR] reviewed and interpreted by me] Additionally notably showing: [Hemodynamics reviewed. He is not febrile, not tachycardic, no evidence of hypotension respiratory distress. CBC is normal without leukocytosis, anemia or thrombocytopenia. Coagulation panel is unremarkable. INR is one. Metabolic panel consistent with a mild transaminitis, otherwise unremarkable. Normal electrolytes. He is ethanol is 406, the gentleman is pes drunk. Chest x-ray is rotated but no acute disease.] Tests considered but not ordered include: [Advanced imaging does not appear to be necessary] Social Determinants of Health Impact: Patient was evaluated in [facility] [place] access to healthcare due to below par ratio of patient to medical providers. [] Comorbid Conditions Impacting Present Evaluation and Care/Treatment: [Alcoholism] Management Discussions with other Healthcare Providers: [None] Treatment and Disposition Medication Management (Given or considered): [Fluids]. See EMR for details Consideration for Hospitalization/Escalation/Deescalation of Care: Admission for observation has been considered, [however the patient is able to tolerate p.o., their symptoms are controlled, they are able to rely on oral medications, and their chief complaint/diagnosis can be managed on outpatient basis.] ?ED Course:?[The gentleman was allowed to metabolize to clinical sobriety.] ?Shared decision making:?[Patient is hemodynamically stable for discharge home with follow with their primary care provider. [ ] Specific and cautious return precautions provided and discussed with full understanding. Any incidental findings were also discussed and follow up recommendations given. [] All quest ions answered. Patient/family were able to verbalize back return precautions. Patient/family agree to plan. Copies of imaging and laboratory studies were provided.] Code status:?FULL Please see the full Electronic Medical Record for full details of nursing documentation, medications list, other records of complete past medical history and conditions, vital signs, laboratory studies, and any radiologic study interpretations by radiologists. Portions of this note were completed using [employer] dictation software and as a result there may exist minor errors in spelling. I have reviewed elements of past family and social history and agree as included in note. Differential Dx:Considerations: Other (See the body of main note) Departure Disposition: 01 HOME / SELF CARE / HOMELESS Impression: Primary Impression: Acute alcohol intoxication Additional Impression: Alcohol abuse Condition: Improved Discharge Instructions: Alcohol Intoxication Referrals: NO PRIMARY CARE PROVIDER (PCP) Education Educated: Patient Educated regarding: diagnosis, treatment, prognosis, need for follow up Signature Scribe Signature: No scribe Attestation: Date: May 24, 2025 Time: 01:12 This note accurately reflects clinical decisions, work performed by myself, Gilson Michaud, GILSON HASSAN DO May 24, 2025 01:12
[2025-05-24 01:13] LABS: ETHANOL 406 MG/DL (<10)
--- NOTE | 2025-05-24 02:18 | RADIOLOGY REPORT ---
CHEST RADIOGRAPH Indication: aloc Technique: Single frontal view of the chest was obtained COMPARISON: DI CHEST,SINGLE VIEW on DOS: 05/09/25, DI CHEST,SINGLE VIEW on DOS: 05/05/25, DI CHEST,SINGLE VIEW on DOS: 03/18/25, DI CHEST,SINGLE VIEW on DOS: 12/14/24, DI CHEST,SINGLE VIEW on DOS: 10/11/23 FINDINGS: Lines and Tubes: None Lungs: Clear Pleura: No effusion. No pneumothorax. Cardiomediastinal contours: Unremarkable Bones: Unremarkable IMPRESSION: 1. No acute disease.
[2025-05-24 05:07] VITALS: BP 114/83; PULSE 98; RESP 17; O2SAT 98
== END 2025-05-24 06:46 | disposition home or self-care (01) ==
LOC: ER 23:52
DX: F10.129 Alcohol abuse with intoxication, unspecified (principal); R06.02 Shortness of breath; F31.9 Bipolar disorder, unspecified; F41.9 Anxiety disorder, unspecified; I10 Essential (primary) hypertension; Z86.73 Personal history of transient ischemic attack (TIA), and cerebral infarction without residual deficits; Z88.0 Allergy status to penicillin; Z88.8 Allergy status to other drugs, medicaments and biological substances; Y90.9 Presence of alcohol in blood, level not specified
CPT/HCPCS: 36415; 71045; 80053; 80320; 83735; 84484; 85025; 85610; 85730; 96360; 99284; J7030; A4338

== ENCOUNTER 2025-05-28 12:08 | Inpatient (IN) | payer MEDICAID ==
[2025-05-28] VITALS (7 sets, daily range): BP systolic 122–137; BP diastolic 69–84; PULSE 118–136; RESP 18–30; TEMP 99.6–99.9; O2SAT 92–99
[~2025-05-28] VITALS: Ht 172.7 cm; Wt 109.3 kg
--- NOTE | 2025-05-28 12:14 | Physician Documentation ---
History of Present Illness ~ Stated Complaint: ETOH Time Seen by MD: 12:10 Primary Medical Doctor: NO PMD HPI This is a 50-year-old male who was brought to the emergency department for medical clearance by [place] police Department. Evidently, he was found passed out on a sidewalk, and a concerned bystander called 911. He is on his way to skilled nursing for public intoxication, but he told the officer that he has had a stroke. On presentation, the patient is found to be tachycardic with heart rate in the 130s and hypoxic with sats of 83%. Tetanus within 5 years?: No (unknown) Medication Reconciliation Allergies: Coded Allergies: Penicillins (Verified Allergy, Unknown, THROAT SWELLS, 05/09/25) Scheduled Atorvastatin Calcium* (Lipitor*), 1 TAB PO DAILY, (Reported) Budesonide/Formoterol Fumarate (Symbicort 160-4.5 Mcg Inhaler), 2 PUFFS INH Q12H Folic Acid* (Folic Acid*), 1 TAB PO DAILY, (Reported) Lisinopril (Lisinopril), 1 TAB PO DAILY Multivitamin (Multi Vitamin Daily), 1 TAB PO DAILY, (Reported) Quetiapine Fumarate* (Seroquel*), 1 TAB PO DAILY, (Reported) Scheduled PRN Lorazepam (Ativan), 1 TAB PO Q12H PRN PRN for anxiety Past Medical History Past Medical History: CVA/TIA/Stroke, Hypertension, *CANCER*, Anxiety, Bipolar Past Surgical History: noncontributory Patient History: Anxiety disorder Sister FH: alcoholism FATHER Brother FH: bipolar disorder Sister FH: brain cancer FATHER FH: hypertension Brother FH: lung cancer FATHER FH: schizophrenia FATHER Hepatitis C Sister Alcohol Use: Abuse Drug Use: none Lives with: Other Lives In: Homeless Occupation: unemployed Review of Systems ROS As stated above in the HPI, otherwise all systems are reviewed and negative. Physical Exam Physical Exam General: Sleepy, arousable to loud voice or tactile stimuli. Smells strongly of alcohol and urine., Neck: Full range of motion. Respiratory: Lungs clear, no respiratory distress. Chest: No accessory muscle use. Cardiovascular: Regular rate and rhythm, no murmurs. Tachycardic. Gastrointestinal: Soft, nontender, nondistended. Bowels sounds present. Extremities: Normal range of motion, no deformity. Neurologic: Cannot fully assess due to intoxication. Follows commands inconsistently. No obvious focal deficits. Was able to ambulate into the ER with standby assistance from commissioned police officer. No antalgic gait noted. Psychiatric: Intoxicated, does not appear anxious. Skin: Normal color, warm and dry. No edema, no ecchymosis. Progress Progress Note 1225: Patient noted to be hypoxic with saturations as low as 83% on room air. Was placed on 2 liters of oxygen by nursing staff. 1415: Lactic acid returns at 3.9 Second liter NS bolus ordered. Results/Orders Results/Orders Orders - BR[address] CONSULTANT Accucheck (05/28/25 12:20) Chest,Single View (05/28/25 12:20) Monitor (05/28/25 12:20) Saline Lock (05/28/25 12:20) * Iv Access / Saline Lock * (05/28/25 12:27) Procalcitonin (05/28/25 13:15) Culture Blood (05/28/25 13:15) Normal Saline 1000ml (0.9% Sodium Chlori (05/28/25 14:25) Page Hospitalist (05/28/25 14:35) Completed Orders - BRITT[address] MAN[address] CONSULTANT Electrocardiogram (05/28/25 12:20) Cbc/Diff (05/28/25 12:20) Chest,Single View (05/28/25 12:20) Ethanol (05/28/25 12:20) Ammonia (05/28/25 12:20) Drug Screen, Urine (05/28/25 12:20) BMP (05/28/25 12:20) Hs Troponin I W Calculations (05/28/25 12:20) Liver Panel (05/28/25 12:20) Normal Saline 1000ml (0.9% Sodium Chlori (05/28/25 12:30) Thiamine Inj. (Thiamine Inj.) (05/28/25 12:50) Lipase (05/28/25 12:52) PBNP (05/28/25 12:52) C-Reactive Protein (05/28/25 13:15) Lacticsepsis (05/28/25 13:15) Ua W/Microscopic, Cult If Ind (05/28/25 13:00) Medications Received in ER Medications (Trade) Dose Ordered Sig/Martina Route PRN Reason Start Time Stop Time Status Last Admin Dose Admin Sodium Chloride 1,000 ml @ 1,000 mls/hr ONCE ONCE IV 05/28/25 12:30 05/28/25 13:29 DC 05/28/25 13:17 1,000 MLS/HR (thiamine inj.) 100 mg ONCE ONCE IV 05/28/25 12:50 05/28/25 12:51 DC 05/28/25 13:16 100 MG Vital Signs 05/28/25 05/28/25 05/28/25 05/28/25 12:16 12:27 12:39 14:07 Temp 98.4 98.4 Pulse 134 129 118 Resp 20 24 22 B/P (MAP) 108/70 113/75 (88) Pulse Ox 98 84 96 O2 Flow Rate 0 4.0 3.0 Laboratory Tests Test 05/28/25 13:00 05/28/25 13:31 05/28/25 13:37 Urine Specimen Description Urinal Urine Color Yellow Urine Clarity Clear Urine pH 6.0 Urine Specific [place] 1.015 Urine Protein 30 H Urine Glucose (UA) Negative Urine Ketones 40 H Urine Occult Blood Negative Urine Nitrite Negative Urine Bilirubin Negative Urine Urobilinogen 0.2 Urine Leukocyte Esterase Negative Urine RBC 0-2 Urine WBC 0-4 Urine Squamous Epithelial Cells Few Urine Bacteria None seen Urine Mucus None seen Urine Culture Indicated Not ind Volume Urine Centrifuged 10 ml Urine Comment Urine Opiates Screen Negative Urine Methadone Screen Negative Urine Fentanyl Screen Negative Urine Barbiturates Screen Negative Urine Phencyclidine Screen Negative Urine Amphetamines Screen Negative Urine Benzodiazepines Screen Negative Urine Cocaine Screen Negative Urine Cannabinoids Screen Negative Drug Screen Comment White Blood Count 13.4 H Red Blood Count 5.00 Hemoglobin 16.5 Hematocrit 48.3 Mean Corpuscular Volume 96.7 Mean Corpuscular Hemoglobin 33.0 H Mean Corpuscular Hemoglobin Concent 34.1 Red Cell Distribution Width 14.4 Platelet Count 381 Mean Platelet Volume 7.7 Neutrophils (%) (Auto) 80.7 H Lymphocytes (%) (Auto) 14.4 L Monocytes (%) (Auto) 3.4 Eosinophils (%) (Auto) 0.7 Basophils (%) (Auto) 0.8 Neutrophils # (Auto) 10.8 H Lymphocytes # (Auto) 1.9 Monocytes # (Auto) 0.5 Eosinophils # (Auto) 0.1 Basophils # (Auto) 0.1 CBC Comment Sodium Level 146 H Potassium Level 3.7 Chloride Level 103 Carbon Dioxide Level 27.8 Anion Gap 15 Blood Urea Nitrogen 6 L Creatinine 0.76 Estimated GFR/1.73 m2 > 90 BUN/Creatinine Ratio 7.9 L Glucose Level 80 Glucometer 77 Calcium Level 8.2 L Total Bilirubin 0.5 Direct Bilirubin 0.2 Aspartate Amino Transf (AST/SGOT) 67 H Alanine Aminotransferase (ALT/SGPT) 100 H Alkaline Phosphatase 129 H Ammonia 26 Troponin I High Sensitivity 14 C-Reactive Protein 3.76 H Pro-B-Type Natriuretic Peptide < 30 Total Protein 8.4 H Albumin 3.4 Globulin 5.0 H Albumin/Globulin Ratio 0.7 L Lipase 23 Chemistry Comments Ethyl Alcohol Level 384 H Lactic Acid Level 3.9 H EKG/XRAY/CT/US/VASC/MRI EKG : Additional Comment 1245 EKG interpreted to show sinus tachycardia rate of [address] segment elevation. QTC 462 ms. Chest X-Ray : Additional Comments [place] [id number] DIAGNOSTIC RADIOLOGY Patient: PALMIRA VELARDE Medical Record: [id number] [facility] : 1975, Age: 50 Sex: Male Location: ER Patient Status: REG ER Service Date/Time: 05/28/25/ 0 Ordering Physician: BRITTANY MANZO RO[address] CONSULTANT Exam: CHEST,SINGLE VIEW CHEST RADIOGRAPH Indication: aloc Technique: Single frontal view of the chest was obtained COMPARISON: DI CHEST,SINGLE VIEW on DOS: 05/24/25, DI CHEST,SINGLE VIEW on DOS: 05/09/25, DI CHEST,SINGLE VIEW on DOS: 05/05/25, DI CHEST,SINGLE VIEW on DOS: 03/18/25, DI CHEST,SINGLE VIEW on DOS: 12/14/24 FINDINGS: Cardiomegaly. Mild vascular congestion. No pleural effusion or pneumothorax. No acute osseous abnormality IMPRESSION: Cardiomegaly and mild vascular congestion. Electronically Signed by:KRISTINA LANGSTON MD Date & Time: 05/28/25 1313 Dictated by: KRISTINA LANGSTON MD Dictation date and time: 05/28/25 1245 Primary Care Provider: NO PRIMARY CARE PROVIDER cc: BRITTANY [address] CONSULTANT ~ Medical Decision Making Additional information obtaine: other Findings Recent ER visit 05/24/25 for acute alcohol intxociation with numerous previous hospitalizations for same. Differential Dx:Considerations: Intoxication - ETOH, Intoxication - other drug, Sub. Abuse -continuous, Sub. Abuse-intermittent, Skull fracture, Fracture - other bone, Personality disorder, Closed head injury, Cervical spine injury, Abrasion, Confusion, Hematoma, Laceration, Foreign body, Dehydration, Encephalopathy, Hepatitis, Pancreatitis, Thiamine deficiency Additional Comment Patient with evidence of acute intoxication, lactic acidosis, hypoxia, hypernatremia, transaminitis. He will need to be admitted to the hospital. He received two liters of NS bolus in the ER and also IV thiamine. EKG without acute abnormalities. CXR with no evidence of PNA. Hospitalist paged. Most Likely Diagnoses: Aspiration pneumonia or chemical pneumonitis: Severe alcoholism increases risk for aspiration due to impaired consciousness and gag reflex. Hypoxia, tachycardia, and altered mental status are classic features. Aspiration can cause infectious pneumonia or chemical injury to the lung parenchyma, both presenting with hypoxemia and respiratory distress.[1] Acute alcohol intoxication with respiratory depression: Profound intoxication can depress central respiratory drive, leading to hypoventilation and hypoxemia. Unresponsiveness and arousability to stimuli are consistent with severe intoxication, which can also cause tachycardia via autonomic stimulation.[2] Community-acquired pneumonia: Alcohol use disorder is a major risk factor for pneumonia due to impaired host defenses. Hypoxia, tachycardia, and altered mental status are common, and pneumonia may present atypically in patients with chronic alcohol use.[3] Cardiogenic pulmonary edema from alcoholic cardiomyopathy: Chronic heavy alcohol use can cause dilated cardiomyopathy, leading to heart failure and pulmonary edema, manifesting as hypoxia and tachycardia.[4] Sepsis of pulmonary or mixed origin: Severe infection (e.g., pneumonia, aspiration) can progress to sepsis, with hypoxemia, tachycardia, and altered mental status as signs of organ dysfunction.[5] Most Important Not to Miss Diagnoses: Intracranial hemorrhage (e.g., subdural hematoma after fall): Alcoholics are at high risk for falls and head trauma. Acute intracranial bleeding can cause decreased consciousness and secondary hypoventilation. Rule out with urgent neuroimaging if history or exam suggests trauma.[6] Wernicke encephalopathy: Thiamine deficiency in alcoholics can present with altered mental status and may be subtle. Early empiric thiamine is indicated if any suspicion exists, as delay can cause irreversible damage.[7] Pulmonary embolism: Presents with acute hypoxemia and tachycardia, especially in immobilized or high-risk patients. Rule out with clinical assessment and imaging if suspicion is high.[8] Upper airway obstruction from vomitus or blood: Unresponsiveness increases risk for airway compromise. Immediate airway assessment is required.[9] Departure Time of Disposition: 14:41 Disposition: 09 ADMITTED INPATIENT Admitted to Inpatient Unit: yes, to hospitalist Impression: Primary Impression: Alcoholic intoxication Additional Impressions: Hypernatremia Lactic acid acidosis Hypoxia Transaminitis Referrals: NO PRIMARY CARE PROVIDER (PCP) Signature Scribe Signature: x Attestation: The note accurately reflects work and decisions made by me.Brittany Hummel NP 05/28/25 12:33 BRITTANY MANZO NP May 28, 2025 12:14
--- NOTE | 2025-05-28 12:49 | ELECTROCARDIOGRAPH REPORT ---
[facility] Test Date: 2025-05-28 Test Time: 12:45:41 Pat Name: PALMIRA VELARDE Department: [facility]- Patient ID: [facility]-[id number] Room: [place] [id number] Gender: M [place] Operator: : 1975 Requested By: LILIAN MANZO Order Number: [id number] Reading MD: Dr. Jayme Albarran Measurements Intervals [place] Rate: 129 P: 78 [place]: 132 QRS: 88 QRSD: 83 T: 26 QT: 315 QTc: 462 Interpretive Statements Sinus tachycardia LAE, consider biatrial enlargement Electronically Signed On 06-01-2025 20:44:[address] Jayme Albarran Please click the below link to view image of tracing.
--- NOTE | 2025-05-28 13:15 | RADIOLOGY REPORT ---
CHEST RADIOGRAPH Indication: aloc Technique: Single frontal view of the chest was obtained COMPARISON: DI CHEST,SINGLE VIEW on DOS: 05/24/25, DI CHEST,SINGLE VIEW on DOS: 05/09/25, DI CHEST,SINGLE VIEW on DOS: 05/05/25, DI CHEST,SINGLE VIEW on DOS: 03/18/25, DI CHEST,SINGLE VIEW on DOS: 12/14/24 FINDINGS: Cardiomegaly. Mild vascular congestion. No pleural effusion or pneumothorax. No acute osseous abnormality IMPRESSION: Cardiomegaly and mild vascular congestion.
[2025-05-28] MEDS: thiamine 100mg/ml 2ml inj. IV ONE (13:16)
[2025-05-28 13:17] LABS: LEUKOCYTE ESTERASE ,URINE NEGATIVE (Neg); NITRITES, URINE NEGATIVE (Neg); OCCULT BLOOD,URINE NEGATIVE (Neg)
[2025-05-28] MEDS: normal saline 1000ml 1,000 ML IV ONE ×2 (13:17→14:48)
[2025-05-28 13:20] LABS: UA COLLECTION TYPE URINAL
[2025-05-28 13:23] LABS: MUCUS STRANDS NONE SEEN /LPF (Neg); SQUAMOUS EPITHELIAL CELL,UR FEW /LPF (FEW)
[2025-05-28 13:35] LABS: URINE AMPHETAMINE SCREEN NEGATIVE (Neg); URINE BARBITUATE SCREEN NEGATIVE (Neg); URINE BENZODIAZEPINES SCREEN NEGATIVE (Neg); URINE CANNABINOID SCREEN NEGATIVE (Neg); URINE COCAINE SCREEN NEGATIVE (Neg); URINE METHADONE SCREEN NEGATIVE (Neg); URINE OPIATE SCREEN NEGATIVE (Neg); URINE PHENCYCLIDINE SCREEN NEGATIVE (Neg)
[2025-05-28 14:07] LABS: MEAN PLATELET VOLUME 7.7 FL (7.4-10.4); RED CELL DISTRIBUTION WIDTH 14.4 % (11.5-14.5)
[2025-05-28 14:11] LABS: CREATININE 0.76 MG/DL (0.60-1.10); TOTAL CARBON DIOXIDE 27.8 MMOL/L (24-32); eCRCL 115 ML/MIN; eGFR > 90 ML/MIN
[2025-05-28 14:23] LABS: PRO BRAIN NATRIURETIC PEPTIDE < 30 PG/ML (0-125)
[2025-05-28 14:24] LABS: ETHANOL 384 MG/DL (<10)
--- NOTE | 2025-05-28 14:49 | HISTORY AND PHYSICAL-Residence ---
History & Physical Providers to CC Resident Creating Document: REGINALD LEW, RES ~ History of Present Illness Primary Medical Doctor: PCP: Ofelia Navarrete Reason for Admit\\Complaint: ALOC History of Present Illness 50-year-old male patient presented to the hospital after being found unconscious on the side walk. The patient was on his way to residential for public intoxication, but he told the officer that he has a stroke. On presentation, the patient was found to be tachycardic with heart rate in the 130s on hypoxic with sats of 83%. When the patient was evaluated at bedside, he is oriented to person but not in place or time. The patient states "I was sleeping and the inductor tester took me". The patient reports tiredness and abdominal pain. He states that he has not had any bowel movement for one week. He states that he gets sick when he stops drinking. Currently he reports abdominal pain in the level of the lower abdomen, 5/10 in intensity, without radiation, pressure type, he states that it is because he did not have bowel movement. He currently denies any chest pain, palpitations, shortness of breath, fever sensation. Allergies: Coded Allergies: Penicillins (Verified Allergy, Unknown, THROAT SWELLS, 05/09/25) Home Medications Home Medications Active Symbicort 160-4.5 Mcg Inhaler (Budesonide/Formoterol Fumarate) 160 Mcg-4.5 Mcg/Actuation Hfa.aer.ad 2 Puffs INH Q12H 30 Days Ativan (Lorazepam) 1 Mg Tablet 1 Tab PO Q12H PRN PRN Lisinopril 20 Mg Tablet 1 Tab PO DAILY 30 Days Reported Multi Vitamin Daily (Multivitamin) 1 Each Tablet 1 Tab PO DAILY 30 Days Lipitor* (Atorvastatin Calcium) 40 Mg Tablet 1 Tab PO DAILY 30 Days Seroquel* (Quetiapine Fumarate) 100 Mg Tablet 1 Tab PO DAILY Folic Acid* (Folic Acid) 0.4 Mg Tablet 1 Tab PO DAILY 30 Days Past Medical History Past Medical History Alcohol use disorder. Hypertension. Dyslipidemia. Bladder cancer s/p partial cystectomy. He states that he had a stroke in the past. Past Surgical History Surgical History Comment Partial cystectomy for bladder cancer proximally six years ago. Right ankle orthopedic surgery. Repair of ventral abdominal hernia. Family History Family History: Anxiety disorder Sister FH: alcoholism FATHER Brother FH: bipolar disorder Sister FH: brain cancer FATHER FH: hypertension Brother FH: lung cancer FATHER FH: schizophrenia FATHER Hepatitis C Sister Past Social History Smoking: Greater than 1 pack/day (He smokes one pack a day for at least 30 years.) Alcohol Use: Abuse (He currently drinks one bottle of vodka daily for at least 20 years.) Drug Use: Methamphetamine (He states that he used methamphetamines in the past.) Lives with: Other Lives In: Homeless Occupation: unemployed ROS Constitutional: Reports: see HPI Eyes: Denies: no symptoms reported, see HPI, pain, discharge, blurred vision, double vision, itching, photophobia, redness, tearing, other ENT: Denies: no symptoms reported, see HPI, ear pain, ear bleeding, ear discharge, hearing loss, ear ringing, nose pain, nose bleeding, nose congestion, nose discharge, throat pain, throat swelling, voice change, mouth pain, mouth bleeding, mouth swelling, other Respiratory: Denies: no symptoms reported, see HPI, cough, orthopnea, shortness of breath, SOB with exertion, SOB at rest, stridor, wheezing, hemoptysis, pain with breathing, other Cardiovascular: Reports: see HPI Gastrointestinal: Reports: see HPI Genitourinary: Denies: no symptoms reported, see HPI, burning, discharge, dysuria, frequency, flank pain, hematuria, incontinence, pain, decreased urine output, urgency, other Male Genitalia: Denies: no symptoms reported, see HPI, penile discharge, penile sore, testicular pain, testicular swelling, other Neurological: Reports: see HPI Musculoskeletal: Reports: see HPI Integumentary: Denies: no symptoms reported, see HPI, rash, itching, lesions, lumps, bruise(s), wound(s), laceration(s), dryness, change in color, other Allergic/Immunologic: Denies: no symptoms reported, see HPI, hives, itching, frequent infections, difficulty healing, other Hematologic/Lymphatic: Denies: no symptoms reported, see HPI, anemia, blood clots, easy bleeding, easy bruising, swollen glands, other Endocrine: Denies: no symptoms reported, see HPI, excessive sweating, flushing, intolerance to cold, intolerance to heat, increased hunger, increased thrist, increased urine, unexplained weight gain, unexplained weight loss, other Psychiatric: Denies: no symptoms reported, see HPI, depression, anxiety, sleeplessness, hopeless, suicidal, hallucinations, other Exam Vitals: Vital Signs Date Time Temp Pulse Resp B/P (MAP) Pulse Ox O2 Delivery O2 Flow Rate FiO2 05/28/25 14:07 98.4 118 22 113/75 (88) 96 3.0 Physical exam: General: Awake, alert, oriented. No acute distress. No anemia, Jaundice or clubbing. HEENT: Conjunctive are pink, sclerae clear, no icterus, pupil is equal in both sides, reactive to light, no ear discharge, no pharyngeal erythema or an edema. Neck: Supple, no adenopathy, thyromegaly. Trachea is midline. No JVD. Chest: Respiratory: Vesicular breath sounds. Mild wheezing bilaterally. Resonance is normal upon percussion of all lung rothman. Cardiovascular: S1-S2 regular sinus rhythm and, regular rate, no gallops, no rubs, no murmurs Abdomen: No visible distention, Bowel sounds present on auscultation, on palpation: soft, mild tenderness in the lower abdomen, no guarding, no rigidity. Extremities: No obvious deformities, no pitting edema bilaterally, capillary refill intact, peripheral pulsations are intact on both sides Neurologic: Mental status: Awake, conscious, oriented to person but not in place or time, preserved memory, normal speech. Motor system: Preserved power, coordination, no evidenced involuntary movements, strength 5/5 in four extremities. Sensory system: Preserved temperature, pain and vibration sensation. 2+ deep tendon reflexes in biceps, triceps, quadriceps. Skin: Warm and dry. Presence of erythematous rash of the level of the back. Diagnostic Data Last Recorded Lab Results: 05/28/25 1331 05/28/25 1331 Advance Care Planning Advanced Care plannin - 30 Minutes (I spent a total of 17 minutes on reviewing various resuscitative measures/ACP with the patient at the time of admission. The patient has decided on a full code status.) Additional Plan Assessment and plan: 50-year-old male patient presented to the hospital after being found passed out in the sidewalk. Toxic encephalopathy: Alcohol intoxication: A: The patient presented to the hospital after being found lying down in the sidewalk. Patient has a history of alcohol withdrawals. Alcohol levels: 384. Plan: Moderate alcohol withdrawal protocol. NS at 100 mL/hour. Aspiration precautions. Fall precautions. Substance use navigator addiction social worker consulted. Acute hypoxemic respiratory failure likely secondary to COPD exacerbation: The patient was found with oxygen saturation of 84%, currently on 4 L of oxygen. Plan: Methylprednisolone 125 mg once. Methylprednisolone 30 mg b.i.d.. DuoNebs q.2h PRN. DuoNebs q.4h scheduled. Azithromycin 500 mg daily. Ceftriaxone 1 g IV daily. 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 Plan: Follow-up coagulation studies. Currently on thiamine, folate and multivitamins. Continue to monitor CMP. Possible Reactive leukocytosis: WBC 3.4. Blood cultures obtained. Elevated lactic acid: 3.4. Chest x-ray: Cardiomegaly and mild vascular congestion. Continue to monitor CBC. Tobacco use disorder: The patient states that he has been smoking least one pack a day for 30 years. Plan: Nicotine patch daily. Hypertension: Current blood pressure within reference range. Plan: We will continue lisinopril after med reconciliation. H/O Bladder Cancer (6 years ago), stable Code status: Full code DVT prophylaxis: SCDs Analgesia/sedation: Morphine/[place] Line/tube: PIV GI prophylaxis: Protonix Nutrition: NPO until passing swallow test. If pass regular diet. PT: Yes Prognosis: Guarded Disposition: The patient will be admitted to PCU with telemetry. Reginald Martin Internal Medicine Resident [facility] Patient is seen and examined in the ER bed 14 he has got increased somnolence unable to even open up his eyes or answer any questions. Continue DT protocol I was informed by pharmacy that they did not have IV Ativan and I switched it to IV diazepam. Continue protocol Date of Service: May 28, 2025 Billing Provider: JARETT DEAN MD Common Visit Codes: 35583-[id number] INP/OBS CARE (HIGH) REGINALD LEW, RES May 28, 2025 14:49 JARETT DEAN MD May 29, 2025 10:58
[2025-05-28] MEDS: diazepam inj 5 MG/ML inj. IV ONE ×2 (16:35→18:11)
[2025-05-28] MEDS: ondansetron/PF 4mg/2ml inj IV ONE (16:37)
[2025-05-28] MEDS ORDERED: mag hydrox/Alum hydrox/simeth 30ml oral suspension PO PRN (16:40)
[2025-05-28] MEDS ORDERED: HYDROcodone/acetaminophen 10/325mg tab PO PRN (16:40)
[2025-05-28] MEDS ORDERED: magnesium sulf-water 4G/100mL 100 ML IV PRN (16:40)
[2025-05-28] MEDS ORDERED: potassium Cl 20 mEq SR tablet PO PRN ×2 (16:40)
[2025-05-28] MEDS ORDERED: potassium Cl 40MEQ/1/2NS 520ml 520 ML IV PRN (16:40)
[2025-05-28] MEDS ORDERED: HYDROcodone/acetaminophen 5mg/325mg tablet PO PRN (16:40)
[2025-05-28] MEDS ORDERED: magnesium sulf-water 2g/50mL 50 ML IV PRN (16:40)
[2025-05-28] MEDS: normal saline 1000ml 1,000 ML IV SCH (17:20)
[2025-05-28] MEDS ORDERED: ipratropium/albuterol 3ml nebule NEB PRN (17:25)
[2025-05-28] MEDS: CefTRIAXone/D5W-Rocephin 1gm 50 ML IV SCH (17:35)
[2025-05-28] MEDS: diazepam inj 5 MG/ML inj. IV PRN ×2 (19:41→22:32)
[2025-05-28] MEDS: K and/or MAG REPLACEMENT MC SCH (20:00)
[2025-05-28] MEDS: ipratropium/albuterol 3ml nebule NEB SCH (20:22)
[2025-05-28] MEDS: methylPREDNISolone sod succ/PF 40mg inj. IV SCH (22:40)
[2025-05-28] MEDS: thiamine 100mg/ml 2ml inj. IV SCH (22:40)
[2025-05-28] MEDS: ondansetron/PF 4mg/2ml inj IV PRN (23:50)
[2025-05-29] VITALS (21 sets, daily range): BP systolic 126–162; BP diastolic 70–95; PULSE 97–121; RESP 14–24; TEMP 97.5–98.8; O2SAT 92–99
[2025-05-29 06:20] LABS: MEAN PLATELET VOLUME 8.1 FL (7.4-10.4); RED CELL DISTRIBUTION WIDTH 14.3 % (11.5-14.5)
[2025-05-29 06:32] LABS: INR 1.1 INR
[2025-05-29 06:35] LABS: CREATININE 0.82 MG/DL (0.60-1.10); PHOSPHORUS 3.2 MG/DL (2.3-4.5); TOTAL CARBON DIOXIDE 21.4 MMOL/L (24-32); eCRCL 107 ML/MIN; eGFR > 90 ML/MIN
[2025-05-29] MEDS: nicotine 21mg patch - 24 hr TD SCH (07:32)
[2025-05-29] MEDS: magnesium Cl slow-release 64mg tablet PO PRN (07:32)
[2025-05-29] MEDS: folic acid 1mg/0.2ml inj IV SCH (08:41)
[2025-05-29] MEDS: magnesium hydroxide 30ml (MOM) UD suspension PO PRN (10:34)
--- NOTE | 2025-05-29 14:36 | PROGRESS NOTE- Residence ---
Progress Note - Resident Providers to CC Resident Creating Document: ZULY BEARD RES ~ Antibiotic Timeout Antibiotic Ordered?: Yes Subjective Patient was seen and examined at the bedside today. Says that he is feeling much better today, says that he is ready to stay away from alcohol and consult neonatal social worker. Objective Vital Signs Date Time Temp Pulse Resp B/P (MAP) Pulse Ox O2 Delivery O2 Flow Rate FiO2 05/29/25 11:28 115 17 Nasal Cannula 4.0 05/29/25 11:23 97 36 05/29/25 11:00 97.9 162/95 (117) Result Diagram: 05/29/25 0547 05/29/25 0547 General: Awake, alert, oriented. No acute distress. No anemia, Jaundice or clubbing. HEENT: Conjunctive are pink, sclerae clear, no icterus, pupil is equal in both sides, reactive to light, no ear discharge, no pharyngeal erythema or an edema. Neck: Supple, no adenopathy, thyromegaly. Trachea is midline. No JVD. Chest: Respiratory: Vesicular breath sounds. Mild wheezing bilaterally. Resonance is normal upon percussion of all lung rothman. Cardiovascular: S1-S2 regular sinus rhythm and, regular rate, no gallops, no rubs, no murmurs Abdomen: No visible distention, Bowel sounds present on auscultation, on palpation: soft, mild tenderness in the lower abdomen, no guarding, no rigidity. Extremities: No obvious deformities, no pitting edema bilaterally, capillary refill intact, peripheral pulsations are intact on both sides Neurologic: Mental status: Awake, conscious, oriented to person but not in place or time, preserved memory, normal speech. Motor system: Preserved power, coordination, no evidenced involuntary movements, strength 5/5 in four extremities. Sensory system: Preserved temperature, pain and vibration sensation. 2+ deep tendon reflexes in biceps, triceps, quadriceps. Skin: Warm and dry. Presence of erythematous rash of the level of the back. Coagulation Studies Laboratory Tests Test 05/29/25 05:47 Prothrombin Time 11.2 SECONDS (9.0-12.0) INR International Normalized Ratio 1.1 INR Coagulation Comments Plan Plan Toxic encephalopathy: Alcohol intoxication: A: The patient presented to the hospital after being found lying down in the sidewalk. Patient has a history of alcohol withdrawals. Alcohol levels: 384. Plan: Moderate alcohol withdrawal protocol. NS at 100 mL/hour. Aspiration precautions. Fall precautions. Substance use navigator neonatal social worker consulted. 05/29/25- Patient's encephalopathy has been resolved Patient on NS 100 cc/hour. We will continue to monitor him. Acute hypoxemic respiratory failure likely secondary to COPD exacerbation: The patient was found with oxygen saturation of 84%, currently on 4 L of oxygen. Plan: Methylprednisolone 125 mg once. Methylprednisolone 30 mg b.i.d.. DuoNebs q.2h PRN. DuoNebs q.4h scheduled. Azithromycin 500 mg daily. Ceftriaxone 1 g IV daily. 05/29/25- Patient is currently maintaining saturation of 97% on 4 L of oxygen. Patient on azithromycin 500 mg day 1 Patient on ceftriaxone 1 g IV daily. Methylprednisolone 30 mg b.i.d.. DuoNebs q.4h scheduled. DuoNebs q.2h PRN. 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 Plan: Follow-up coagulation studies. Currently on thiamine, folate and multivitamins. Continue to monitor CMP. 05/29/25- Coagulation studies within normal range Possible Reactive leukocytosis: WBC 3.4. Blood cultures obtained. Elevated lactic acid: 3.4. Chest x-ray: Cardiomegaly and mild vascular congestion. Continue to monitor CBC. Tobacco use disorder: The patient states that he has been smoking least one pack a day for 30 years. Plan: Nicotine patch daily. Hypertension: Current blood pressure within reference range. Plan: We will continue lisinopril after med reconciliation. 05/29/25- Patient on home medication lisinopril 20 mg daily. H/O Bladder Cancer (6 years ago), stable Code status: Full code DVT prophylaxis: SCDs Analgesia/sedation: Morphine/[place] Line/tube: PIV GI prophylaxis: Protonix Nutrition: NPO until passing swallow test. If pass regular diet. PT: Yes Prognosis: Guarded Zuly Beard PGY-1 Date of Service: May 29, 2025 Billing Provider: JARETT DEAN MD Common Visit Codes: [id number] INP/OBS CARE(HIGH) ZULY BEARD, RES May 29, 2025 14:36 JARETT DEAN MD May 30, 2025 10:33
[2025-05-30] VITALS (20 sets, daily range): BP systolic 109–153; BP diastolic 68–108; PULSE 77–112; RESP 14–24; TEMP 97.7–98.5; O2SAT 93–97
[2025-05-30] MEDS: polyethylene glycol 3350 17gm powd pack PO SCH (00:12)
[2025-05-30 06:39] LABS: MEAN PLATELET VOLUME 8.6 FL (7.4-10.4); RED CELL DISTRIBUTION WIDTH 14.2 % (11.5-14.5)
[2025-05-30 06:45] LABS: INR 1.0 INR
[2025-05-30 07:06] LABS: CREATININE 0.66 MG/DL (0.60-1.10); PHOSPHORUS 1.3 MG/DL (2.3-4.5); TOTAL CARBON DIOXIDE 30.3 MMOL/L (24-32); eCRCL 132 ML/MIN; eGFR > 90 ML/MIN
--- NOTE | 2025-05-30 15:23 | PROGRESS NOTE- Residence ---
Progress Note - Resident Providers to CC Resident Creating Document: ZULY BEARD RES ~ Antibiotic Timeout Antibiotic Ordered?: Yes Subjective Patient was seen and examined at the bedside today. Says that he is feeling much better today, but he still shaky . No acute overnight events recorded. Objective Vital Signs Date Time Temp Pulse Resp B/P (MAP) Pulse Ox O2 Delivery O2 Flow Rate FiO2 05/30/25 15:03 91 18 Nasal Cannula 3.0 05/30/25 14:58 96 32 05/30/25 10:50 97.8 109/71 (84) Result Diagram: 05/30/25 0545 05/30/25 0545 General: Awake, alert, oriented. No acute distress. No anemia, Jaundice or clubbing. HEENT: Conjunctive are pink, sclerae clear, no icterus, pupil is equal in both sides, reactive to light, no ear discharge, no pharyngeal erythema or an edema. Neck: Supple, no adenopathy, thyromegaly. Trachea is midline. No JVD. Chest: Respiratory: Vesicular breath sounds. Mild wheezing bilaterally. Resonance is normal upon percussion of all lung rothman. Cardiovascular: S1-S2 regular sinus rhythm and, regular rate, no gallops, no rubs, no murmurs Abdomen: No visible distention, Bowel sounds present on auscultation, on palpation: soft, mild tenderness in the lower abdomen, no guarding, no rigidity. Extremities: No obvious deformities, no pitting edema bilaterally, capillary refill intact, peripheral pulsations are intact on both sides Neurologic: Mental status: Awake, conscious, oriented to person but not in place or time, preserved memory, normal speech. Skin: Warm and dry. Presence of erythematous rash of the level of the back. Coagulation Studies Laboratory Tests Test 05/30/25 05:45 Prothrombin Time 10.7 SECONDS (9.0-12.0) INR International Normalized Ratio 1.0 INR Coagulation Comments Plan Plan Toxic encephalopathy: Alcohol intoxication: A: The patient presented to the hospital after being found lying down in the sidewalk. Patient has a history of alcohol withdrawals. Alcohol levels: 384. Plan: Moderate alcohol withdrawal protocol. NS at 100 mL/hour. Aspiration precautions. Fall precautions. Substance use navigator social research assistant consulted. 05/29/25- Patient's encephalopathy has been resolved Patient on NS 100 cc/hour. We will continue to monitor him. 05/30/25- Patient still seems bit shaky We will continue to monitor him Patient has a itchy rash on his back for which we gave him fluconazole. Acute hypoxemic respiratory failure likely secondary to COPD exacerbation: The patient was found with oxygen saturation of 84%, currently on 4 L of oxygen. Plan: Methylprednisolone 125 mg once. Methylprednisolone 30 mg b.i.d.. DuoNebs q.2h PRN. DuoNebs q.4h scheduled. Azithromycin 500 mg daily. Ceftriaxone 1 g IV daily. 05/29/25- Patient is currently maintaining saturation of 97% on 4 L of oxygen. Patient on azithromycin 500 mg day 1 Patient on ceftriaxone 1 g IV daily. Methylprednisolone 30 mg b.i.d.. DuoNebs q.4h scheduled. DuoNebs q.2h PRN. 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 Plan: Follow-up coagulation studies. Currently on thiamine, folate and multivitamins. Continue to monitor CMP. 05/29/25- Coagulation studies within normal range Possible Reactive leukocytosis: WBC 13.4. Blood cultures obtained. Elevated lactic acid: 3.4. Chest x-ray: Cardiomegaly and mild vascular congestion. Continue to monitor CBC. Tobacco use disorder: The patient states that he has been smoking least one pack a day for 30 years. Plan: Nicotine patch daily. Hypertension: Current blood pressure within reference range. Plan: We will continue lisinopril after med reconciliation. 05/29/25- Patient on home medication lisinopril 20 mg daily. H/O Bladder Cancer (6 years ago), stable Code status: Full code DVT prophylaxis: SCDs Analgesia/sedation: Morphine/[place] Line/tube: PIV GI prophylaxis: Protonix. PT: Yes Prognosis: Guarded Zuly Beard PGY-1 Date of Service: May 30, 2025 Billing Provider: JARETT DEAN MD Common Visit Codes: [id number] INP/OBS CARE(HIGH) ZULY BEARD, RES May 30, 2025 15:23 JARETT DEAN MD May 31, 2025 08:35
[2025-05-31] VITALS (22 sets, daily range): BP systolic 139–182; BP diastolic 94–118; PULSE 67–117; RESP 16–26; TEMP 97.3–97.9; O2SAT 93–97
[2025-05-31 06:13] LABS: INR 1.0 INR
[2025-05-31 06:17] LABS: MEAN PLATELET VOLUME 8.2 FL (7.4-10.4); RED CELL DISTRIBUTION WIDTH 14.0 % (11.5-14.5)
[2025-05-31 07:00] LABS: CREATININE 0.64 MG/DL (0.60-1.10); PHOSPHORUS 2.8 MG/DL (2.3-4.5); TOTAL CARBON DIOXIDE 28.0 MMOL/L (24-32); eCRCL 137 ML/MIN; eGFR > 90 ML/MIN
[2025-05-31] MEDS ORDERED: NICO-687 TD (12:29)
[2025-05-31] MEDS ORDERED: PRED10TA23 PO ×2 (12:29→12:32)
[2025-05-31] MEDS ORDERED: CEFD300C3 PO (12:29)
[2025-05-31] MEDS ORDERED: PANT-47 PO (12:29)
[2025-05-31] MEDS ORDERED: thiamine tablet PO (12:29)
[2025-05-31] MEDS ORDERED: ALBU8HFA PO (12:29)
[2025-05-31] MEDS ORDERED: AMLO5TAB16 PO (12:38)
[2025-05-31] MEDS ORDERED: METO-395 PO (12:41)
[2025-05-31] MEDS: metoprolol succinate 25mg (24-HOUR) SR. Tablet PO ONE (12:53)
[2025-05-31] MEDS ORDERED: cloNIDine 0.1 MG/24 HOUR patch (7 day patch) TD SCH (13:50)
[2025-05-31] MEDS ORDERED: cloNIDine 0.1 MG/24 HOUR patch (7 day patch) TD PRN (13:55)
--- NOTE | 2025-05-31 17:39 | PROGRESS NOTE- Residence ---
Progress Note - Resident Providers to CC Resident Creating Document: ZULY MARTINS RES ~ Antibiotic Timeout Antibiotic Ordered?: Yes Subjective Patient was seen and examined at the bedside today. Says that he is feeling much better today, no acute overnight events recorded. Objective Vital Signs Date Time Temp Pulse Resp B/P (MAP) Pulse Ox O2 Delivery O2 Flow Rate FiO2 05/31/25 15:24 98 18 Nasal Cannula 2.0 05/31/25 15:17 97 28 05/31/25 13:36 179/112 (134) 05/31/25 11:00 97.7 Result Diagram: 05/31/25 0544 05/31/25 0544 General: Awake, alert, oriented. No acute distress. No anemia, Jaundice or clubbing. HEENT: Conjunctive are pink, sclerae clear, no icterus, pupil is equal in both sides, reactive to light, no ear discharge, no pharyngeal erythema or an edema. Neck: Supple, no adenopathy, thyromegaly. Trachea is midline. No JVD. Chest: Respiratory: Vesicular breath sounds. Mild wheezing bilaterally. Resonance is normal upon percussion of all lung rothman. Cardiovascular: S1-S2 regular sinus rhythm and, regular rate, no gallops, no rubs, no murmurs Abdomen: No visible distention, Bowel sounds present on auscultation, on palpation: soft, mild tenderness in the lower abdomen, no guarding, no rigidity. Extremities: No obvious deformities, no pitting edema bilaterally, capillary refill intact, peripheral pulsations are intact on both sides Neurologic: Mental status: Awake, conscious, oriented to person but not in place or time, preserved memory, normal speech. Skin: Warm and dry. Presence of erythematous rash of the level of the back. Coagulation Studies Laboratory Tests Test 05/31/25 05:44 Prothrombin Time 10.2 SECONDS (9.0-12.0) INR International Normalized Ratio 1.0 INR Coagulation Comments Plan Plan Toxic encephalopathy: Alcohol intoxication: A: The patient presented to the hospital after being found lying down in the sidewalk. Patient has a history of alcohol withdrawals. Alcohol levels: 384. Plan: Moderate alcohol withdrawal protocol. NS at 100 mL/hour. Aspiration precautions. Fall precautions. Substance use navigator social worker school consulted. 05/31/25- Patient was supposed to be discharged but recording high blood pressures. Patient on lisinopril 20 mg. Started the patient on metoprolol succinate 25 mg p.o., clonidine p.r.n. We will continue to monitor his blood pressures. 05/29/25- Patient's encephalopathy has been resolved Patient on NS 100 cc/hour. We will continue to monitor him. 05/30/25- Patient still seems bit shaky We will continue to monitor him Patient has a itchy rash on his back for which we gave him fluconazole. Acute hypoxemic respiratory failure likely secondary to COPD exacerbation: The patient was found with oxygen saturation of 84%, currently on 4 L of oxygen. Plan: Methylprednisolone 125 mg once. Methylprednisolone 30 mg b.i.d.. DuoNebs q.2h PRN. DuoNebs q.4h scheduled. Azithromycin 500 mg daily. Ceftriaxone 1 g IV daily. 05/29/25- Patient is currently maintaining saturation of 97% on 4 L of oxygen. Patient on azithromycin 500 mg day 1 Patient on ceftriaxone 1 g IV daily. Methylprednisolone 30 mg b.i.d.. DuoNebs q.4h scheduled. DuoNebs q.2h PRN. 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 Plan: Follow-up coagulation studies. Currently on thiamine, folate and multivitamins. Continue to monitor CMP. 05/29/25- Coagulation studies within normal range Possible Reactive leukocytosis: WBC 13.4. Blood cultures obtained. Elevated lactic acid: 3.4. Chest x-ray: Cardiomegaly and mild vascular congestion. Continue to monitor CBC. Tobacco use disorder: The patient states that he has been smoking least one pack a day for 30 years. Plan: Nicotine patch daily. Hypertension: Current blood pressure within reference range. Plan: We will continue lisinopril after med reconciliation. 05/29/25- Patient on home medication lisinopril 20 mg daily. H/O Bladder Cancer (6 years ago), stable Code status: Full code DVT prophylaxis: SCDs Analgesia/sedation: Morphine/[place] Line/tube: PIV GI prophylaxis: Protonix. PT: Yes Prognosis: Guarded Disposition- patient according high blood pressures, changed blood pressure medications. Possible discharge tomorrow. Zuly Reddivari PGY-1 PATIENT IS SEEN AND EXAMINED AGREE WITH THE ABOVE Date of Service: May 31, 2025 Billing Provider: JARETT DEAN MD Common Visit Codes: [id number] INP/OBS CARE(HIGH) ZULY MARTINS, RES May 31, 2025 17:39 JARETT DEAN MD Jun 01, 2025 08:56
[2025-05-31] MEDS: hydrALAZINE 20mg/ml inj. IV ONE (23:32)
--- NOTE | 2025-05-31 23:59 | ELECTROCARDIOGRAPH REPORT ---
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 Sheron Quinteros Measurements Intervals [place] Rate: 97 P: 42 VA: 154 QRS: 46 QRSD: 90 T: 26 QT: 347 QTc: 441 Interpretive Statements Sinus rhythm Probable left atrial enlargement RSR' in V1 or V2, probably normal variant ST elev, probable normal early repol pattern Electronically Signed On 06-01-2025 6:27:[address] Sheron Quinteros Please click the below link to view image of tracing.
[2025-06-01] VITALS (20 sets, daily range): BP systolic 141–168; BP diastolic 93–116; PULSE 84–98; RESP 18–24; TEMP 96.8–97.8; O2SAT 95–98
[2025-06-01] MEDS ORDERED: cloNIDine 0.1 MG/24 HOUR patch (7 day patch) TD PRN (01:00)
--- NOTE | 2025-06-01 01:13 | ELECTROCARDIOGRAPH REPORT ---
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 Sheron Quinteros Measurements Intervals [place] Rate: 92 P: 38 TX: 146 QRS: 43 QRSD: 89 T: 17 QT: 371 QTc: 459 Interpretive Statements Sinus rhythm Probable left atrial enlargement Electronically Signed On 06-01-2025 6:27:[address] Sheron Quinteros Please click the below link to view image of tracing.
[2025-06-01 07:07] LABS: MEAN PLATELET VOLUME 8.0 FL (7.4-10.4); RED CELL DISTRIBUTION WIDTH 14.2 % (11.5-14.5)
[2025-06-01 07:08] LABS: INR 1.0 INR
[2025-06-01] MEDS: metoprolol succinate 25mg (24-HOUR) SR. Tablet PO SCH (07:22)
[2025-06-01 07:35] LABS: CREATININE 0.56 MG/DL (0.60-1.10); PHOSPHORUS 4.1 MG/DL (2.3-4.5); TOTAL CARBON DIOXIDE 26.4 MMOL/L (24-32); eCRCL 156 ML/MIN; eGFR > 90 ML/MIN
[2025-06-01] MEDS ORDERED: magnesium sulf-water 4G/100mL 100 ML IV PRN (08:05)
[2025-06-01] MEDS ORDERED: potassium Cl 20 mEq SR tablet PO PRN (08:05)
[2025-06-01] MEDS ORDERED: potassium Cl 40MEQ/1/2NS 520ml 520 ML IV PRN (08:05)
[2025-06-01] MEDS ORDERED: magnesium Cl slow-release 64mg tablet PO PRN (08:05)
[2025-06-01] MEDS ORDERED: magnesium sulf-water 2g/50mL 50 ML IV PRN (08:05)
[2025-06-01] MEDS: potassium Cl 20 mEq SR tablet PO PRN (08:41)
[2025-06-01] MEDS: hydrALAZINE 20mg/ml inj. IV PRN (15:27)
--- NOTE | 2025-06-01 16:02 | PROGRESS NOTE- Residence ---
Progress Note - Resident Providers to CC Resident Creating Document: ZULY BEARD RES ~ Antibiotic Timeout Antibiotic Ordered?: Yes Subjective Patient was seen and examined at the bedside today. Says that he is feeling much better today, no acute overnight events recorded. Objective Vital Signs Date Time Temp Pulse Resp B/P (MAP) Pulse Ox O2 Delivery O2 Flow Rate FiO2 06/01/25 15:27 92 06/01/25 15:19 160/110 (127) 06/01/25 11:56 20 96 Room Air* 0 21 06/01/25 11:00 97.8 Result Diagram: 06/01/25 0634 06/01/25 0634 General: Awake, alert, oriented. No acute distress. No anemia, Jaundice or clubbing. HEENT: Conjunctive are pink, sclerae clear, no icterus, pupil is equal in both sides, reactive to light, no ear discharge, no pharyngeal erythema or an edema. Neck: Supple, no adenopathy, thyromegaly. Trachea is midline. No JVD. Chest: Respiratory: Vesicular breath sounds. Mild wheezing bilaterally. Resonance is normal upon percussion of all lung rothman. Cardiovascular: S1-S2 regular sinus rhythm and, regular rate, no gallops, no rubs, no murmurs Abdomen: No visible distention, Bowel sounds present on auscultation, on palpation: soft, mild tenderness in the lower abdomen, no guarding, no rigidity. Extremities: No obvious deformities, no pitting edema bilaterally, capillary refill intact, peripheral pulsations are intact on both sides Neurologic: Mental status: Awake, conscious, oriented to person but not in place or time, preserved memory, normal speech. Skin: Warm and dry. Presence of erythematous rash of the level of the back. Coagulation Studies Laboratory Tests Test 06/01/25 06:34 Prothrombin Time 10.5 SECONDS (9.0-12.0) INR International Normalized Ratio 1.0 INR Coagulation Comments Plan Plan Toxic encephalopathy: Alcohol intoxication: Patient's encephalopathy resolved A: The patient presented to the hospital after being found lying down in the sidewalk. Patient has a history of alcohol withdrawals. Alcohol levels: 384. Plan: Moderate alcohol withdrawal protocol. NS at 100 mL/hour. Substance use navigator perinatal social worker consulted. Patient still recording high blood pressures likely due to withdrawal Patient on lisinopril 20 mg., metoprolol succinate 25 mg, amlodipine 5 mg, clonidine 0.1 mg Patient still recording high blood pressures of 166/110, for which 1 dose of hydralazine was given. We will continue to monitor his blood pressures Acute hypoxemic respiratory failure likely secondary to COPD exacerbation: Currently not in respiratory failure.Patient currently saturating at 96% on room air. Plan: Patient started on prednisone 10 mg p.o. Patient on ceftriaxone day 5 Patient completed his course of azithromycin for 3 days. 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 Coagulation studies within normal range Currently on thiamine, folate and multivitamins. Continue to monitor CMP. Possible Reactive leukocytosis: WBC trending down We will continue to monitor Tobacco use disorder: The patient states that he has been smoking least one pack a day for 30 years. Plan: Nicotine patch daily. Hypertension: Patient recording high blood pressures likely due to withdrawal. H/O Bladder Cancer (6 years ago), stable Code status: Full code DVT prophylaxis: SCDs Analgesia/sedation: Morphine/[place] Line/tube: PIV GI prophylaxis: Protonix. PT: Yes Prognosis: Guarded Disposition- patient recording high blood pressures, changed blood pressure medications. We will continue to monitor. Zuly Beard PGY-1 PATIENT IS SEEN AND EXAMINED AGREE WITH THE ABOVE Date of Service: Jun 01, 2025 Billing Provider: JARETT DEAN MD,ZULY, RES Jun 01, 2025 16:02
[2025-06-01] MEDS: K and/or MAG REPLACEMENT MC SCH (20:00)
[2025-06-02] VITALS (8 sets, daily range): BP systolic 117–157; BP diastolic 73–115; PULSE 78–99; RESP 17–24; TEMP 97.6; O2SAT 94–99
[2025-06-02 06:00] LABS: MEAN PLATELET VOLUME 7.9 FL (7.4-10.4); RED CELL DISTRIBUTION WIDTH 14.6 % (11.5-14.5)
[2025-06-02 06:08] LABS: INR 1.0 INR
[2025-06-02 06:12] LABS: CREATININE 0.56 MG/DL (0.60-1.10); PHOSPHORUS 5.9 MG/DL (2.3-4.5); TOTAL CARBON DIOXIDE 27.2 MMOL/L (24-32); eCRCL 156 ML/MIN; eGFR > 90 ML/MIN
[2025-06-02] MEDS ORDERED: NOR5T PO (11:29)
--- NOTE | 2025-06-02 15:45 | DISCHARGE SUMMARY-Residence ---
Discharge Summary Providers to CC Resident Creating Document: ZULY MARTINS RES ~ Discharge Summary Admission Diagnosis: syncope Hospital Course DATE OF ADMISSION: 05/28/25 DATE OF DISCHARGE: 06/02/25 Imaging- Chest x-ray- Cardiomegaly and mild vascular congestion. Discharge Diagnosis\\Comment: Toxic encephalopathy resolved Alcohol intoxication Acute hypoxemic respiratory failure likely secondary to COPD exacerbation resolved Transaminases, likely related to alcohol hepatic injury Possible Reactive leukocytosis Tobacco use disorder Hypertension Operations\\Procedures: None Consultants: None Complications: None Condition on DC: Stable New Medications: albuterol inhaler (Pro-Air Inhaler) 8.5 Gm Inhaler 1-2 PUFFS PO Q4H PRN for shortness of breath, #1 INH Amlodipine Besylate (Amlodipine Besylate) 5 Mg Tablet 1 TAB PO DAILY for 30 Days, #30 TAB 0 Refills Metoprolol Succinate (Metoprolol Succinate) 25 Mg Tab.sr.24h 1 TAB PO DAILY for 30 Days, #30 TAB 0 Refills Pantoprazole Sodium (PROTONIX tablet) 40 Mg Tablet.dr 40 MG PO DAILY for 30 Days, #30 TAB.SR Prednisone (Prednisone) 10 Mg Tablet 40 MG PO DAILY for 5 Days, #20 TAB Take 4 tabs daily x5 DAYS and then stop Nicotine 21 MG Patch* (Habitrol 21 MG Patch*) 1 Each Patch.td24 1 PATCH TD DAILY, #7 PATCH [thiamine tablet] () 100 MG TABLET 100 MG PO DAILY, #30 Continued Medications: Atorvastatin Calcium* (Lipitor*) 40 Mg Tablet 1 TAB PO DAILY for 30 Days, #30 TAB Budesonide/Formoterol Fumarate (Symbicort 160-4.5 Mcg Inhaler) 160 Mcg-4.5 Mcg/Actuation Hfa.aer.ad 2 PUFFS INH Q12H for 30 Days, #10.2 GM 0 Refills Folic Acid* (Folic Acid*) 0.4 Mg Tablet 1 TAB PO DAILY for 30 Days, #30 TAB Lisinopril (Lisinopril) 20 Mg Tablet 1 TAB PO DAILY for 30 Days, #30 TAB 0 Refills Lorazepam (Ativan) 1 Mg Tablet 1 TAB PO Q12H PRN PRN for anxiety, #10 TAB 0 Refills Multivitamin (Multi Vitamin Daily) 1 Each Tablet 1 TAB PO DAILY for 30 Days, #30 TAB 0 Refills Quetiapine Fumarate* (Seroquel*) 100 Mg Tablet 1 TAB PO DAILY, TAB Discharge Summary: 50-year-old male patient presented to the hospital after being found unconscious on the side walk. The patient was on his way to senior care for public intoxication, but he told the officer that he has a stroke. On presentation, the patient was found to be tachycardic with heart rate in the 130s on hypoxic with sats of 83%. When the patient was evaluated at bedside, he is oriented to person but not in place or time. The patient states "I was sleeping and the skein yarn dyer helper took me". The patient reports tiredness and abdominal pain. He states that he has not had any bowel movement for one week. He states that he gets sick when he stops drinking. Currently he reports abdominal pain in the level of the lower abdomen, 5/10 in intensity, without radiation, pressure type, he states that it is because he did not have bowel movement. He currently denies any chest pain, palpitations, shortness of breath, fever sensation. Course during his hospital stay- We admitted the patient in view of alcohol intoxication. Patient's alcohol level was elevated, 384. Placed him on moderate alcohol withdrawal protocol, maintenance fluids at 100 cc per, aspiration precautions, fall precautions. Substance use navigator and social service assistant were consulted. Patient was also being treated for acute hypoxemic respiratory failure likely secondary to COPD exacerbation for which he was on steroids, DuoNebs, and was treated with azithromycin and ceftriaxone. Patient had increased levels of AST and ALT, bilirubin was within the reference range coagulation studies were normal. Patient was on thiamine folate and multivitamins. Patient also reported having an itchy rash in his back for which he was treated with fluconazole. Patient recorded high blood pressures during his stay likely from withdrawal. For which he was treated with antihypertensive medications. Patient's condition improved significantly over the course of next few days in the hospital. Patient was taken off oxygen and was ready for discharge. Vital Signs Date Time Temp Pulse Resp B/P (MAP) Pulse Ox O2 Delivery O2 Flow Rate FiO2 06/02/25 11:25 99 18 Room Air 06/02/25 11:19 94 0 21 06/02/25 09:30 117/73 (88) 06/02/25 06:00 97.6 Laboratory Tests Test 05/31/25 19:59 06/01/25 00:12 06/01/25 01:53 06/01/25 06:34 Glucometer 152 mg/dl 137 mg/dl Troponin I High Sensitivity 10 ng/L White Blood Count 11.6 X10'3 Red Blood Count 4.42 X10'6 Hemoglobin 14.6 g/dl Hematocrit 42.0 % Mean Corpuscular Volume 95.1 FL Mean Corpuscular Hemoglobin 33.1 PG Mean Corpuscular Hemoglobin Concent 34.8 g/dL Red Cell Distribution Width 14.2 % Platelet Count 221 X10'3 Mean Platelet Volume 8.0 FL Neutrophils (%) (Auto) 79.6 % Lymphocytes (%) (Auto) 16.1 % Monocytes (%) (Auto) 3.3 % Eosinophils (%) (Auto) 0.8 % Basophils (%) (Auto) 0.2 % Neutrophils # (Auto) 9.3 X10'3 Lymphocytes # (Auto) 1.9 X10'3 Monocytes # (Auto) 0.4 X10'3 Eosinophils # (Auto) 0.1 X10'3 Basophils # (Auto) 0.0 X10'3 CBC Comment Prothrombin Time 10.5 SECONDS INR International Normalized Ratio 1.0 INR Coagulation Comments Sodium Level 140 MMOL/L Potassium Level 3.2 MMOL/L Chloride Level 105 MMOL/L Carbon Dioxide Level 26.4 MMOL/L Anion Gap 9 Blood Urea Nitrogen 13 MG/DL Creatinine 0.56 MG/DL Estimated GFR/1.73 m2 > 90 ML/MIN BUN/Creatinine Ratio 23.2 Glucose Level 103 MG/DL Calcium Level 8.5 MG/DL Phosphorus Level 4.1 MG/DL Magnesium Level 2.0 MG/DL Total Bilirubin 0.5 MG/DL Direct Bilirubin 0.2 MG/DL Aspartate Amino Transf (AST/SGOT) 60 U/L Alanine Aminotransferase (ALT/SGPT) 109 U/L Alkaline Phosphatase 98 IU/L Total Protein 7.2 G/DL Albumin 2.8 G/DL Globulin 4.4 G/DL Albumin/Globulin Ratio 0.6 Amylase Level 46 U/L Lipase 30 U/L Vitamin B12 Level 909 pg/mL Chemistry Comments Test 06/01/25 08:40 06/01/25 15:20 06/01/25 19:47 06/02/25 03:34 Glucometer 97 mg/dl 107 mg/dl 116 mg/dl 96 mg/dl Test 06/02/25 05:24 06/02/25 05:47 06/02/25 08:12 Prothrombin Time 10.3 SECONDS INR International Normalized Ratio 1.0 INR Coagulation Comments White Blood Count 9.3 X10'3 Red Blood Count 4.55 X10'6 Hemoglobin 15.0 g/dl Hematocrit 43.4 % Mean Corpuscular Volume 95.4 FL Mean Corpuscular Hemoglobin 32.9 PG Mean Corpuscular Hemoglobin Concent 34.5 g/dL Red Cell Distribution Width 14.6 % Platelet Count 180 X10'3 Mean Platelet Volume 7.9 FL Neutrophils (%) (Auto) 65.0 % Lymphocytes (%) (Auto) 25.4 % Monocytes (%) (Auto) 4.4 % Eosinophils (%) (Auto) 4.6 % Basophils (%) (Auto) 0.6 % Neutrophils # (Auto) 6.0 X10'3 Lymphocytes # (Auto) 2.4 X10'3 Monocytes # (Auto) 0.4 X10'3 Eosinophils # (Auto) 0.4 X10'3 Basophils # (Auto) 0.1 X10'3 CBC Comment Sodium Level 137 MMOL/L Potassium Level 3.8 MMOL/L Chloride Level 102 MMOL/L Carbon Dioxide Level 27.2 MMOL/L Anion Gap 8 Blood Urea Nitrogen 16 MG/DL Creatinine 0.56 MG/DL Estimated GFR/1.73 m2 > 90 ML/MIN BUN/Creatinine Ratio 28.6 Glucose Level 93 MG/DL Calcium Level 8.9 MG/DL Phosphorus Level 5.9 MG/DL Magnesium Level 2.0 MG/DL Total Bilirubin 0.4 MG/DL Direct Bilirubin MG/DL Aspartate Amino Transf (AST/SGOT) 79 U/L Alanine Aminotransferase (ALT/SGPT) 155 U/L Alkaline Phosphatase 95 IU/L Total Protein 7.2 G/DL Albumin 2.9 G/DL Globulin 4.3 G/DL Albumin/Globulin Ratio 0.7 Amylase Level 58 U/L Lipase 45 U/L Chemistry Comments Glucometer 101 mg/dl Examination of the patient at the time of discharge- General: Awake, alert, oriented. No acute distress. No anemia, Jaundice or clubbing. HEENT: Conjunctive are pink, sclerae clear, no icterus, pupil is equal in both sides, reactive to light, no ear discharge, no pharyngeal erythema or an edema. Neck: Supple, no adenopathy, thyromegaly. Trachea is midline. No JVD. Chest: Respiratory: Vesicular breath sounds. Mild wheezing bilaterally. Resonance is normal upon percussion of all lung rothman. Cardiovascular: S1-S2 regular sinus rhythm and, regular rate, no gallops, no rubs, no murmurs Abdomen: No visible distention, Bowel sounds present on auscultation, on palpation: soft, mild tenderness in the lower abdomen, no guarding, no rigidity. Extremities: No obvious deformities, no pitting edema bilaterally, capillary refill intact, peripheral pulsations are intact on both sides Neurologic: Mental status: Awake, conscious, oriented to person but not in place or time, preserved memory, normal speech. Skin: Warm and dry. Presence of erythematous rash of the level of the back. Discharge medications- New Medications: albuterol inhaler (Pro-Air Inhaler) 8.5 Gm Inhaler Amlodipine Besylate 5 Mg Tablet Metoprolol Succinate 25 Mg Tab.sr.24h Pantoprazole Sodium (PROTONIX tablet) 40 Mg Tablet. Prednisone 10 Mg Tablet Take 4 tabs daily x5 DAYS and then stop Nicotine 21 MG Patch* (Habitrol 21 MG Patch*) 1 Each Patch.td24 [thiamine tablet] 100 MG TABLET Continued Medications: Atorvastatin Calcium* (Lipitor*) 40 Mg Tablet Budesonide/Formoterol Fumarate (Symbicort 160-4.5 Mcg Inhaler) 160 Mcg-4.5 Mcg/Actuation Hfa.aer.ad Folic Acid* 0.4 Mg Tablet Lisinopril 20 Mg Tablet Lorazepam (Ativan) 1 Mg Tablet Multivitamin (Multi Vitamin Daily) 1 Each Tablet Quetiapine Fumarate* (Seroquel*) 100 Mg Tablet Instructions by the doctor at the time of discharge- Follow-up with your PCP in 1 week. Please abstain from drinking alcohol. Please use your vitamins as needed. ADDED NEW BP MED YOUR BP REMAINS HIGH, METOPROLOL XL 25 MG, AMLODIPINE 5MG.TAKE BOTH OF THEM ONCE DAILY.HOLD BP MEDS FOR SBP LESS THAN 100 AND HR LES THAN 60. PLEASE FOLLOW UP WITH YOUR PCP REGARDING DISCONTINUATION. *Problems/Diagnosis: (1) Alcohol dependence Status: Acute (2) Alcohol withdrawal syndrome Status: Acute (3) Hypertension Status: Chronic Total Time Spent on D/C: > 30 Minutes Date of Service: Jun 02, 2025 Billing Provider: JARETT DEAN MD,ZULY, RES Jun 02, 2025 15:39
[2025-06-03] MEDS ORDERED: pantoprazole 40mg Tablet.DR PO SCH (07:30)
== END 2025-06-02 13:25 | disposition home or self-care (01) | DRG 133 ==
LOC: ER 12:08 → ED HOLD 14:48 → PCU 3S 19:28
PROVIDERS: ADMIT Internal Medicine; ATTEND Internal Medicine
DX: J96.01 Acute respiratory failure with hypoxia (principal); G92.9 Unspecified toxic encephalopathy; E87.0 Hyperosmolality and hypernatremia; E87.20 Acidosis, unspecified; S36.118A Other injury of liver, initial encounter; F10.229 Alcohol dependence with intoxication, unspecified; J44.1 Chronic obstructive pulmonary disease with (acute) exacerbation; I11.9 Hypertensive heart disease without heart failure; F31.9 Bipolar disorder, unspecified; D72.829 Elevated white blood cell count, unspecified; F41.9 Anxiety disorder, unspecified; Z59.00 Homelessness unspecified; Y90.8 Blood alcohol level of 240 mg/100 ml or more; X58.XXXA Exposure to other specified factors, initial encounter; Y93.89 Activity, other specified; Y92.89 Other specified places as the place of occurrence of the external cause; Y99.8 Other external cause status
CPT/HCPCS: 36415; 71045; 80048; 80053; 80076; 80305; 80320; 81001; 82140; 82150; 82248; 82607; 82948; 83036; 83605; 83690; 83735; 83880; 84100; 84145; 84484; 85025; 85610; 86140; 87040; 87081; 92508; 92616; 93005; 94640; 94760; 96374; 97161; 97535; 99285; A4615; A5200; A6258; A6449; G0378; J0360; J0696; J2270; J2405; J2470; J2560; J2919; J3360; J3411; J3490; J7030; J7512

== ENCOUNTER 2025-07-01 11:33 | Inpatient (IN) | payer MEDICAID ==
[~2025-07-01] VITALS: Ht 175.3 cm; Wt 110.4 kg
[~2025-07-01 11:33] MED LIST changes: +ALBU8HFA PO; +METO-395 PO; +NICO-687 TD; +NOR5T PO; +PANT-47 PO; +PRED10TA23 PO; +thiamine tablet PO
--- NOTE | 2025-07-01 11:51 | Physician Documentation ---
History of Present Illness ~ Chief Complaint: Medical Clearance Stated Complaint: WITHDRAWAL Time Seen by MD: 12:27 Primary Medical Doctor: PCP: Ofelia Finn 50-year-old male who presents to the emergency department requesting assistance with detoxing from alcohol. He reports his last drink was yesterday, he is actively retching on arrival. He notes that he has been accepted by a local rehab, pending medical clearance. He plans to attend [facility] rehab. Denies chills or fever CP or dyspnea. Tetanus within 5 years?: No (unknown) Medication Reconciliation Allergies: Coded Allergies: Penicillins (Verified Allergy, Unknown, THROAT SWELLS, 07/01/25) Scheduled Amlodipine Besylate (Amlodipine Besylate), 1 TAB PO DAILY Atorvastatin Calcium* (Lipitor*), 1 TAB PO DAILY, (Reported) Budesonide/Formoterol Fumarate (Symbicort 160-4.5 Mcg Inhaler), 2 PUFFS INH Q12H Folic Acid* (Folic Acid*), 1 TAB PO DAILY, (Reported) Lisinopril (Lisinopril), 1 TAB PO DAILY Metoprolol Succinate (Metoprolol Succinate), 1 TAB PO DAILY Multivitamin (Multi Vitamin Daily), 1 TAB PO DAILY, (Reported) Nicotine 21 MG Patch* (Habitrol 21 MG Patch*), 1 PATCH TD DAILY Pantoprazole Sodium (PROTONIX tablet), 40 MG PO DAILY Prednisone (Prednisone), 40 MG PO DAILY Quetiapine Fumarate* (Seroquel*), 1 TAB PO DAILY, (Reported) [thiamine tablet], 100 MG PO DAILY Scheduled PRN Lorazepam (Ativan), 1 TAB PO Q12H PRN PRN for anxiety Discontinued Medications albuterol inhaler (Pro-Air Inhaler), 1-2 PUFFS PO Q4H PRN for shortness of breath Discontinued Reason: Auto Discontinued Past Medical History Past Medical History: CVA/TIA/Stroke, Hypertension, *CANCER*, Anxiety, Bipolar Past Surgical History: noncontributory Patient History: Anxiety disorder Sister FH: alcoholism FATHER Brother FH: bipolar disorder Sister FH: brain cancer FATHER FH: hypertension Brother FH: lung cancer FATHER FH: schizophrenia FATHER Hepatitis C Sister Alcohol Use: Abuse Drug Use: methamphetamine Lives with: Other Lives In: Homeless Occupation: unemployed Review of Systems ROS As stated above in the HPI, otherwise all systems are reviewed and negative. Physical Exam Vital Signs: Temperature: 98.3, Source: Oral, Heart Rate: 98, Respiratory Rate: 19, BP: 136/87, Pulse Oximetry: 98, Weight: 110.400 Oxygen Flow Rate: 0 Physical Exam General: Alert, appears unwell and is actively retching on exam. Neck: Full range of motion. Respiratory: Lungs clear, no respiratory distress. Chest: No accessory muscle use. Cardiovascular: Regular rate and rhythm, no murmurs. Tachycardic. Gastrointestinal: Soft, nontender, nondistended. Bowels sounds present. Extremities: Normal range of motion, no deformity. Neurologic: Oriented x4. Psychiatric: Normal mood and affect. Skin: Normal color, warm and dry. No edema, no ecchymosis. Progress Progress Note 1410: Conversation with attending ED MD Yan who recommends phenobarbital 260 mg IV x1 and that patient be admitted to hospitalist service. Hospitalist service paged 1500: Spoke with hospitalist Dr. Rodriguez who agrees to admit patient., Results/Orders Results/Orders Orders - LILIAN MANZO MAINTENANCE TECHNICIAN 2ND SHIFT * Iv Access / Saline Lock * (07/01/25 13:04) Phenobarbital Inj (Phenobarbital Inj.) (07/01/25 15:00) Page Hospitalist (07/01/25 14:21) Completed Orders - LILIAN MANZO MAINTENANCE TECHNICIAN 2ND SHIFT Ondansetron Disint. Tablet (Zofran Odt T (07/01/25 11:50) Lorazepam Tablet (Ativan Tablet) (07/01/25 11:50) Cbc/Diff (07/01/25 13:04) Lipase (07/01/25 13:04) Ethanol (07/01/25 13:04) MG (07/01/25 13:04) CMP (07/01/25 13:04) Normal Saline 1000ml (0.9% Sodium Chlori (07/01/25 13:05) Medications Received in ER Medications (Trade) Dose Ordered Sig/Martina Route PRN Reason Start Time Stop Time Status Last Admin Dose Admin (Zofran ODT tablet) 4 mg ONCE ONCE PO 07/01/25 11:50 07/01/25 11:51 DC 07/01/25 12:23 4 MG (Ativan tablet) 1 mg ONCE ONCE PO 07/01/25 11:50 07/01/25 11:51 DC 07/01/25 12:24 1 MG Sodium Chloride 1,000 ml @ 1,000 mls/hr ONCE ONCE IV 07/01/25 13:05 07/01/25 14:04 DC 07/01/25 13:27 1,000 MLS/HR Phenobarbital Sodium 260 mg/ Sodium Chloride 100 ml @ 200 mls/hr ONCE ONCE IV 07/01/25 15:00 07/01/25 15:29 07/01/25 14:57 200 MLS/HR Vital Signs 07/01/25 07/01/25 07/01/25 07/01/25 11:34 12:24 13:45 13:51 Temp 98.3 Pulse 98 106 Resp 19 15 16 20 B/P (MAP) 136/87 130/85 (100) Pulse Ox 98 95 O2 Flow Rate 0 0 07/01/25 14:00 B/P (MAP) Laboratory Tests Test 07/01/25 13:25 White Blood Count 8.4 Red Blood Count 4.30 L Hemoglobin 14.4 Hematocrit 41.7 L Mean Corpuscular Volume 97.0 Mean Corpuscular Hemoglobin 33.4 H Mean Corpuscular Hemoglobin Concent 34.4 Red Cell Distribution Width 15.5 H Platelet Count 267 Mean Platelet Volume 7.4 Neutrophils (%) (Auto) 74.2 Lymphocytes (%) (Auto) 18.6 L Monocytes (%) (Auto) 5.3 Eosinophils (%) (Auto) 1.3 Basophils (%) (Auto) 0.6 Neutrophils # (Auto) 6.2 Lymphocytes # (Auto) 1.6 Monocytes # (Auto) 0.4 Eosinophils # (Auto) 0.1 Basophils # (Auto) 0.1 CBC Comment Sodium Level 141 Potassium Level 3.9 Chloride Level 104 Carbon Dioxide Level 29.7 Anion Gap 7 L Blood Urea Nitrogen 5 L Creatinine 0.72 Estimated GFR/1.73 m2 > 90 BUN/Creatinine Ratio 6.9 L Glucose Level 102 Calcium Level 8.3 L Magnesium Level 1.5 Total Bilirubin 0.5 Aspartate Amino Transf (AST/SGOT) 63 H Alanine Aminotransferase (ALT/SGPT) 80 H Alkaline Phosphatase 160 H Total Protein 8.1 Albumin 3.6 Globulin 4.5 H Albumin/Globulin Ratio 0.8 L Lipase 27 Chemistry Comments Ethyl Alcohol Level < 10 Medical Decision Making Additional information obtaine: old records Findings Hospitalized here 05/28/25-06/02/25 with COPD exacerbation/acute hypoxic respiratory failure and alcohol w/d. Differential Dx:Considerations: Include: Other Differential Diagnosis Most Likely Diagnoses: Alcohol withdrawal syndrome: The tremor occurring 24 hours after cessation is the hallmark early sign of alcohol withdrawal, which typically begins 6-24 hours after the last drink. Nausea, vomiting, and retching are common accompanying symptoms of early withdrawal. The absence of fever, confusion, or hallucinations suggests this is uncomplicated minor withdrawal rather than severe withdrawal or delirium tremens. Most likely diagnosis in abscess of confusion or hallucinations. [1] Alcoholic gastritis: Chronic alcohol use causes histological inflammation of the gastric mucosa with variable symptomatology including nausea and vomiting. The retching and nausea could represent acute gastritis from recent heavy drinking, which commonly presents with upper gastrointestinal symptoms and abdominal discomfort. This often coexists with alcohol withdrawal. [2] Alcoholic ketoacidosis: This commonly occurs in patients who have discontinued alcohol ingestion and often present with abdominal pain and vomiting due to alcohol-induced gastritis or pancreatitis. Nutritional intake is typically poor before presentation. Despite metabolic acidosis being present, only approximately 50% of patients have acidemia, and symptoms may be relatively nonspecific initially. [3] Peptic ulcer disease: Dyspepsia with nausea and vomiting can represent peptic ulcer disease, which presents in 81% of cases with upper abdominal pain or discomfort. The classic symptoms include epigastric pain that may be accompanied by nausea and vomiting, though symptoms alone do not distinguish between peptic ulcer, reflux esophagitis, or functional dyspepsia. [4] Acute pancreatitis: Abdominal pain with nausea, vomiting, and low- to moderate-grade fever are the typical presenting symptoms. Alcohol is a major risk factor. However, the absence of abdominal pain in this presentation makes pancreatitis less likely, though it cannot be excluded based on symptoms alone. [5] Denies abdominal pain and is non-tender on exam. Most Important Not to Miss Diagnoses: Progression to severe alcohol withdrawal/delirium tremens: Rule out by monitoring for progression of symptoms over the next 24-96 hours. Delirium tremens typically appears between 72 and 96 hours after the last drink. Monitor for worsening tremor, agitation, tachycardia, hypertension, fever, visual hallucinations, and altered mental status. Use validated withdrawal assessment scales such as the Clinical [place] Withdrawal Assessment for Alcohol-Revised (CIWA-Ar) for serial monitoring. Early identification and benzodiazepine treatment can reduce the risk of progression to severe withdrawal. Ativan 1 mg po ordered on eval in triage. [1][6] Alcohol withdrawal seizures: Rule out through close observation and history of prior seizures. Seizures may begin as early as 8 hours after cessation and can continue for up to 48 hours with peak activity around 24 hours. Seizures may occur in the absence of other prominent withdrawal symptoms. Prophylactic benzodiazepines should be considered in patients with history of withdrawal seizures. No reported sz. [1] Wernicke encephalopathy: Rule out by assessing for the classic triad of mental status changes, ocular dysfunction (nystagmus, ophthalmoplegia), and gait ataxia, though this triad is present in only 10% of cases. Additional concerning features include hypothermia, hypotension, and coma. Given the excellent safety profile of thiamine and the risk of permanent neurocognitive impairment, high- dose parenteral thiamine (typically 500 mg IV three times daily) should be administered prophylactically to all hospitalized patients with alcohol use disorder undergoing withdrawal. No hypothermia, hypotension, ataxia, or ocular symptoms on exam. [6-7] Acute pancreatitis: Rule out with serum lipase and/or amylase levels (greater than 3 times the upper limit of normal supports diagnosis). Physical examination should assess for abdominal distention, decreased bowel sounds, and epigastric tenderness. The diagnosis requires 2 of 3 criteria: abdominal pain suggestive of pancreatitis, elevated pancreatic enzymes, and imaging findings consistent with pancreatitis. However, the absence of abdominal pain makes this less likely. [5] Denies abdominal pain. Alcoholic ketoacidosis: Rule out with basic metabolic panel, anion gap calculation, and serum ketone measurement. Patients typically present with anion-gap metabolic acidosis primarily due to accumulation of ketoacids and lactic acid. Despite acidosis, only 50% have acidemia and one-third may have alkalemia due to concurrent metabolic alkalosis from vomiting. Check glucose (typically low-normal), electrolytes (often hypokalemic, hypomagnesemic, hypophosphatemic), and arterial blood gas if indicated. [3] Departure Time of Disposition: 15:00 Disposition: ADMITTED INPATIENT Admitted to Inpatient Unit: yes, to hospitalist Impression: Primary Impression: Alcohol withdrawal syndrome Referrals: NO PRIMARY CARE PROVIDER (PCP) Signature Scribe Signature: x Attestation: The note accurately reflects work and decisions made by me.Lilian Hummel NP 07/01/25 11:47 LILIAN MANZO NP Jul 01, 2025 11:51
[2025-07-01] MEDS: ondansetron 4mg rapidly disintigrating tab PO ONE (12:23)
[2025-07-01] MEDS: normal saline 1000ml 1,000 ML IV ONE (13:27)
[2025-07-01 13:37] LABS: MEAN PLATELET VOLUME 7.4 FL (7.4-10.4); RED CELL DISTRIBUTION WIDTH 15.5 % (11.5-14.5)
[2025-07-01 13:55] LABS: CREATININE 0.72 MG/DL (0.60-1.10); ETHANOL < 10 MG/DL (<10); TOTAL CARBON DIOXIDE 29.7 MMOL/L (24-32); eCRCL 125 ML/MIN; eGFR > 90 ML/MIN
[2025-07-01] MEDS ORDERED: HYDROcodone/acetaminophen 5mg/325mg tablet PO PRN (15:40)
[2025-07-01] MEDS ORDERED: dextrose 50%-water 50ml dispensing syringe IV PRN (15:40)
[2025-07-01] MEDS ORDERED: ondansetron/PF 4mg/2ml inj IV PRN (15:40)
[2025-07-01] MEDS ORDERED: loperamide 2mg capsule PO PRN ×2 (15:40)
[2025-07-01] MEDS ORDERED: mag hydrox/Alum hydrox/simeth 30ml oral suspension PO PRN ×2 (15:40)
[2025-07-01] MEDS ORDERED: HYDROcodone/acetaminophen 10/325mg tab PO PRN (15:40)
[2025-07-01] MEDS ORDERED: magnesium hydroxide 30ml (MOM) UD suspension PO PRN (15:40)
[2025-07-01] MEDS ORDERED: CHLO25CA10 PO (16:05)
[2025-07-01] MEDS: haloperidol lactate 5mg/ml inj IM PRN (16:43)
--- NOTE | 2025-07-01 18:29 | HISTORY AND PHYSICAL-Residence ---
History & Physical Providers to CC Resident Creating Document: ZULY AGUIRRE RES ~ History of Present Illness Primary Medical Doctor: PCP: Ofelia Navarrete Reason for Admit\Complaint: Alcohol withdrawal History of Present Illness 50-year-old male with history of alcohol use disorder, hypertension, dyslipidemia, history of stroke, COPD came to the ER for detoxification from alcohol. He states that he is homeless and wants to get into [facility] but they will not accept unless he has detoxified and medically cleared. He reports tremors, sweating, anxiety and a headache. His last drink was 1 gal of vodka yesterday. He has been drinking a bottle of vodka everyday for the past 10 years. He is alert and oriented. He was recently admitted in April for alcohol intoxication and toxic encephalopathy. He reports having history of seizures. He denies nausea, vomiting, abdominal pain, chest pain, palpitations, shortness of breath, hallucinations, fever, chills, burning micturition. He is homeless He goes to the [facility] for medical care Can ambulate independently Allergies: Coded Allergies: Penicillins (Verified Allergy, Unknown, THROAT SWELLS, 07/01/25) Home Medications Home Medications Active Amlodipine Besylate 5 Mg Tablet 1 Tab PO DAILY 30 Days Metoprolol Succinate 25 Mg Tab.sr.24h 1 Tab PO DAILY 30 Days Symbicort 160-4.5 Mcg Inhaler (Budesonide/Formoterol Fumarate) 160 Mcg-4.5 Mcg/Actuation Hfa.aer.ad 2 Puffs INH Q12H 30 Days Reported Librium (Chlordiazepoxide Hcl) 25 Mg Capsule 25 Mg PO Seroquel* (Quetiapine Fumarate) 100 Mg Tablet 1 Tab PO DAILY Past Medical History Past Medical History Alcohol use disorder Hypertension Bladder cancer s/p partial cystectomy History of stroke COPD Past Surgical History Surgical History Comment Bladder cancer s/p Partial cystectomy Repair of ventral abdominal hernia Right ankle orthopedic surgery Family History Family History: Anxiety disorder Sister FH: alcoholism FATHER Brother FH: bipolar disorder Sister FH: brain cancer FATHER FH: hypertension Brother FH: lung cancer FATHER FH: schizophrenia FATHER Hepatitis C Sister Past Social History Social History Comment He is an active smoker. He has been smoking a pack a day for the past 30 years He has been drinking 1 bottle of vodka for the past 10 years He denies recreational drug use, as per previous records he used methamphetamine in the past He is homeless He goes to the [facility] for medical care Can ambulate independently Smoking: Greater than 1 pack/day Alcohol Use: Abuse Drug Use: Methamphetamine Lives with: Other Lives In: Homeless Occupation: unemployed ROS ROS Constitutional: No fever, chills, dizziness, weight gain or loss Eyes: No pain, erythema, discharge, blurring of vision ENT: Reports mild irritation in throat, No epistaxis, tinnitus Cardiovascular:No chest pain, palpitations, syncope, lower extremity edema, paroxysmal nocturnal dyspnea Respiratory: No Shortness of breath and cough, No hemoptysis. Gastrointestinal: No Abdominal pain, vomiting,nausea,constipation,diarrhea. Normal appetite. No hematemesis or melena. Musculoskeletal: Reports tremors, No Swelling, pain in bilateral lower legs. Integumentary: No change in skin, hair, nails. No swelling, bruising, abrasions Neurologic: Reports headache, No neck pain, numbness or tingling of the extremities, Psychiatric: Reports anxiety, No delusions, depression, loss of interest in normal activity or change in sleep pattern, hallucinations, suicidal ideations Endocrine: No fatigue, no weakness. polydipsia, polyuria, change in appetite, heat or cold intolerance, sweating, dry skin Hematological: No bleeding, petechiae, bruising Allergies: No asthma or urticaria Exam Vitals: Vital Signs Date Time Temp Pulse Resp B/P (MAP) Pulse Ox O2 Delivery O2 Flow Rate FiO2 07/01/25 16:35 102 21 120/73 (89) 98 0 07/01/25 11:34 98.3 General: Awake , alert, and oriented x4, in mild distress HEENT: Atraumatic, normocephalic, EOMI, anicteric sclera ; pink conjunctiva, dry mucous membranes Neck: Trachea midline. Supple, full range of motion, no JVD Cardiac: Tachycardic, regular rhythm with no murmurs all over the precordium. Respiratory: Equal breath sounds bilaterally, no tachypnea, no wheezing ,rub or rales, Chest wall is symmetric and without deformity. Gastrointestinal: Abdomen symmetric, non-distended, soft, non-tender, normal bowel sounds x4 quadrant, normoactive, no hepatosplenomegaly Musculoskeletal: Tremors in bilateral extremities noted, No pedal edema, no cyanosis Neurological: Speech is clear, alert, and oriented x 4. No motor or sensory deficit, deep tendon reflexes normal, cerebellar intact. Cranial nerves II-XII intact. Skin: Warm and dry Diagnostic Data Last Recorded Lab Results: 07/01/25 1325 07/01/25 1325 Advance Care Planning Advanced Care plannin - 30 Minutes (Full code) Additional Plan Mild Alcohol withdrawal syndrome CIWA score 13-15 Patient is alert and oriented Tremors, sweats, anxiety, and headache are present He is tachycardic He has been drinking 1 bottle of vodka every day for the past 10 years Moderate alcohol withdrawal protocol in place IV thiamine 200 mg t.i.d. and IV folic acid daily Ethyl alcohol < 10 IV pantoprazole 40 mg daily Aspiration precautions, fall precautions in place community services manager and substance use navigator consulted Elevated liver enzymes 2/2 Alcoholic hepatitis AST, ALT, alkaline phosphatase are chronically elevated, most likely due to alcoholic hepatitis Total bilirubin is normal Abdominal ultrasound in previous admission ( May 10, 2025 ) showed hepatomegaly and hepatic steatosis Hypertension Blood pressure is stable Continued home medications amlodipine 5 mg, and metoprolol succinate 25 mg COPD, not in exacerbation He uses Symbicort at home He is saturating well on room air DuoNebs p.r.n. Follow up chest x-ray Tobacco use disorder He has been smoking a pack a day for the past 30 years Nicotine patch daily I spent a total of 18 minutes reviewing various resuscitative measures/ACP with the patient. The patient decided to be full code. Code status: Full code DVT prophylaxis: Lovenox subQ GI prophylaxis: IV pantoprazole 40 mg Pain management: Tylenol p.r.n. Diet/nutrition: Regular diet Prognosis: Guarded Disposition: Continue alcohol withdrawal protocol, Monitor for seizures, PT eval and DC plan Resident MD attestation: The patient note has been reviewed and supervised by senior residents PGY-2/ PGY-3. Patient was seen, examined and discussed with attending physician, Dr. Jennifer Aguirre MD Internal Medicine resident, PGY-1 Date of Service: Jul 01, 2025 Billing Provider: MILA LANGLEY MD Common Visit Codes: [id number]-[id number] INP/OBS CARE (HIGH) Secondary Visit Codes: [id number] CARE PLAN 30 MINUTES ZULY AGUIRRE, RES Jul 01, 2025 18:29 MILA LANGLEY MD Jul 02, 2025 06:27
[2025-07-01 18:41] LABS: LEUKOCYTE ESTERASE ,URINE NEGATIVE (Neg); NITRITES, URINE NEGATIVE (Neg); OCCULT BLOOD,URINE NEGATIVE (Neg)
[2025-07-01 18:49] LABS: URINE AMPHETAMINE SCREEN NEGATIVE (Neg); URINE BARBITUATE SCREEN POSITIVE (Neg); URINE BENZODIAZEPINES SCREEN POSITIVE (Neg); URINE CANNABINOID SCREEN NEGATIVE (Neg); URINE COCAINE SCREEN NEGATIVE (Neg); URINE METHADONE SCREEN NEGATIVE (Neg); URINE OPIATE SCREEN NEGATIVE (Neg); URINE PHENCYCLIDINE SCREEN NEGATIVE (Neg)
[2025-07-01 18:50] LABS: UA COLLECTION TYPE CLN CATCH MIDSTREAM
[2025-07-01] MEDS: diazepam inj 5 MG/ML inj. IV PRN (19:11)
[2025-07-01] MEDS: budesonide 0.5mg/2ml UD nebule IH SCH (19:32)
[2025-07-01] MEDS: docusate sod 100mg capsule PO SCH (19:59)
[2025-07-01] MEDS: thiamine 100mg/ml 2ml inj. IV SCH (20:05)
[2025-07-01] MEDS: nicotine 14mg patch - 24hr TD ONE (20:06)
--- NOTE | 2025-07-01 20:17 | RADIOLOGY REPORT ---
EXAM: DI CHEST,SINGLE VIEW HISTORY: sob TECHNIQUE: 1 view of the chest COMPARISON: DI CHEST,SINGLE VIEW on DOS: 05/28/25 FINDINGS/IMPRESSION: LUNGS: No pleural effusion, consolidation, or pneumothorax. Question small amount of atelectasis in the left lung base . Peribronchial thickening, which is nonspecific however may represent infectious versus inflammatory bronchitis. MEDIASTINUM: Unremarkable. BONES: No acute osseous abnormality. OTHER: None.
[2025-07-01 21:15] VITALS: BP 138/87; PULSE 114; RESP 23; TEMP 98; O2SAT 96
[2025-07-01 22:00] VITALS: BP 154/85; PULSE 106; RESP 23; RESP 25; TEMP 97.4; O2SAT 95; O2SAT 96
[2025-07-02] VITALS (9 sets, daily range): BP systolic 110–173; BP diastolic 66–99; PULSE 89–109; RESP 17–22; TEMP 97.2–98.3; O2SAT 93–100
[2025-07-02 07:19] LABS: MEAN PLATELET VOLUME 7.9 FL (7.4-10.4); RED CELL DISTRIBUTION WIDTH 15.4 % (11.5-14.5)
[2025-07-02] MEDS: ipratropium/albuterol 3ml nebule NEB PRN (07:47)
[2025-07-02 07:52] LABS: CREATININE 0.71 MG/DL (0.60-1.10); TOTAL CARBON DIOXIDE 28.9 MMOL/L (24-32); eCRCL 127 ML/MIN; eGFR > 90 ML/MIN
[2025-07-02] MEDS: multivitamins, therapeutics tablet PO SCH (08:07)
[2025-07-02] MEDS: enoxaparin 40mg/0.4ml syringe SUBCUT SCH (08:08)
[2025-07-02] MEDS: metoprolol succinate 25mg (24-HOUR) SR. Tablet PO SCH (08:09)
[2025-07-02] MEDS: folic acid 1mg/0.2ml inj IV SCH (10:37)
[2025-07-02] MEDS ORDERED: potassium Cl 20 mEq SR tablet PO PRN (14:05)
[2025-07-02] MEDS ORDERED: magnesium sulf-water 4G/100mL 100 ML IV PRN (14:05)
[2025-07-02] MEDS ORDERED: magnesium Cl slow-release 64mg tablet PO PRN (14:05)
[2025-07-02] MEDS ORDERED: potassium Cl 40MEQ/1/2NS 520ml 520 ML IV PRN (14:05)
[2025-07-02] MEDS: potassium Cl 20 mEq SR tablet PO PRN (15:13)
--- NOTE | 2025-07-02 19:05 | PROGRESS NOTE- Residence ---
Progress Note - Resident Providers to CC Resident Creating Document: LISA WORTHY RES CC: SHANTAL COUGHLIN MD ~ Antibiotic Timeout Antibiotic Ordered?: No Subjective Patient was seen and examined at bedside, patient appears flushed anxious and tremulous. He denied any abdominal pain or chest pain. Counseled patient against strict cessation of alcohol, patient was agreeable Objective Vital Signs Date Time Temp Pulse Resp B/P (MAP) Pulse Ox O2 Delivery O2 Flow Rate FiO2 07/02/25 15:19 12 07/02/25 15:00 97.5 102 110/78 (89) 100 Nasal Cannula 2.0 28 Result Diagram: 07/02/2530 07/02/25 0630 General: Awake, oriented to person, place and time, appears tremulous flushed anxious HEENT: Conjunctive are pink, sclerae clear, no icterus, pupil is equal in both sides, reactive to light, no ear discharge, no pharyngeal erythema or an edema. Neck: Supple, no JVD, no lymphadenopathy and thyromegaly. Chest: Equal air entry on both lungs, no additional sounds no rhonchi no wheezing at the moment. Cardiovascular: S1-S2 regular sinus rhythm and, tachycardic, no gallops, no rubs, no murmurs Abdomen: No visible peristalsis, Bowel sounds present on auscultation, soft, no tenderness, no guarding, no rigidity, obese abdomen Extremities: No obvious deformities, no pitting edema bilaterally, capillary refill intact, peripheral pulsations are intact on both sides Neurologic: Mental status: alert and conscious, oriented to place, person and time, preserved memory, normal speech. Cranial nerves I-XII: Normal. Motor system: Preserved power, coordination, bilateral high-frequency tremors noted, strength 5/5 in four extremities. Sensory system: Preserved temperature, pain and vibration sensation. 2+ deep tendon reflexes in biceps, triceps, quadriceps. Negative Babinski. Cerebellar: No nystagmus, dysdiadochokinesia, normal [id number] testing. Musculoskeletal: No joint swelling, deformities, inflammations, and no scoliosis and back tenderness Skin: Warm and dry. Dry oral mucosa. Tattooed throughout Advance Care Planning Advanced Care plannin - 30 Minutes Plan Plan Alcohol use disorder, CIWA 15 Patient is alert and oriented; appears anxious tremulous and tachycardic He has been drinking 1 bottle of vodka every day for the past 10 years ETOH <10, U tox positive for barbiturates benzodiazepines Plan Commenced the patient on Moderate alcohol withdrawal protocol in place, continue IV thiamine and IV folic acid to prevent Wernicke's encephalopathy Continue therapeutic multivitamins; chlordiazepoxide 50 mg q.6 H p.o. scheduled, ondansetron q.4h p.r.n. Initiated the patient on p.o. Protonix as prophylaxis to prevent gastric varices/esophageal varices Monitor for signs of alcohol withdrawal, delirium tremens, seizures Recommend continues checks and CIWA score reassessments Substance use navigator consulted Elevated liver enzymes 2/2 Alcoholic hepatitis AST, ALT, alkaline phosphatase are chronically elevated, most likely due to alcoholic hepatitis Total bilirubin is normal Abdominal ultrasound in previous admission ( May 10, 2025 ) showed hepatomegaly and hepatic steatosis Hypertension Blood pressure is stable Continued home medications amlodipine 5 mg, and metoprolol succinate 25 mg COPD, not in exacerbation He uses Symbicort at home He is saturating well on room air Chest x-ray reported Question small amount of atelectasis in the left lung base . Peribronchial thickening, which is nonspecific however may represent infectious versus inflammatory bronchitis. DuoNebs p.r.n. Tobacco use disorder He has been smoking a pack a day for the past 30 years Nicotine patch daily Obesity BMI 35.9 kg/meter squared Possible Sleep apnea Recommended weight loss Recommended outpatient sleep study I spent a total of 18 minutes reviewing various resuscitative measures/ACP with the patient. The patient decided to be full code. Code status: Full code DVT prophylaxis: Lovenox subQ GI prophylaxis: IV pantoprazole 40 mg Pain management: Tylenol p.r.n. Diet/nutrition: Regular diet Prognosis: Guarded Disposition: Continue alcohol withdrawal protocol, Monitor for seizures, PT eval and DC plan Resident MD attestation: The patient note has been reviewed and supervised by senior residents PGY-2/ PGY-3. Patient was seen, examined and discussed with attending physician, Dr. Pastor Worthy MD Internal Medicine resident, PGY-1 Date of Service: Jul 02, 2025 Billing Provider: SHANTAL COUGHLIN MD Common Visit Codes: [id number] INP/OBS CARE(HIGH) LISA WORTHY, RES Jul 02, 2025 19:05 SHANTAL COUGHLIN MD Jul 06, 2025 14:14
[2025-07-03] VITALS (11 sets, daily range): BP systolic 127–146; BP diastolic 77–104; PULSE 95–116; RESP 16–26; TEMP 97.7–99.9; O2SAT 90–97
[2025-07-03] MEDS: hydrALAZINE 20mg/ml inj. IV ONE (01:18)
[2025-07-03 06:47] LABS: MEAN PLATELET VOLUME 8.3 FL (7.4-10.4); RED CELL DISTRIBUTION WIDTH 15.9 % (11.5-14.5)
[2025-07-03 06:59] LABS: CREATININE 0.67 MG/DL (0.60-1.10); TOTAL CARBON DIOXIDE 27.2 MMOL/L (24-32); eCRCL 135 ML/MIN; eGFR > 90 ML/MIN
--- NOTE | 2025-07-03 12:50 | PROGRESS NOTE- Residence ---
Progress Note - Resident Providers to CC Resident Creating Document: LISA WORTHY RES CC: SHANTAL COUGHLIN MD ~ Antibiotic Timeout Antibiotic Ordered?: No Subjective Patient was seen and examined at bedside. Patient appears much better clinically compared to yesterday, he continues to have some tremulousness but overall he is doing better compared to yesterday Objective Vital Signs Date Time Temp Pulse Resp B/P (MAP) Pulse Ox O2 Delivery O2 Flow Rate FiO2 07/03/25 08:38 18 07/03/25 08:37 103 07/03/25 08:32 Room Air 0.0 07/03/25 08:24 94 21 07/03/25 02:00 98.0 146/77 (100) Result Diagram: 07/03/25 0539 07/03/25 0539 General: Awake, oriented to person, place and time, appears tremulous flushed anxious HEENT: Conjunctive are pink, sclerae clear, no icterus, pupil is equal in both sides, reactive to light, no ear discharge, no pharyngeal erythema or an edema. Neck: Supple, no JVD, no lymphadenopathy and thyromegaly. Chest: Equal air entry on both lungs, no additional sounds no rhonchi no wheezing at the moment. Cardiovascular: S1-S2 regular sinus rhythm and, tachycardic, no gallops, no rubs, no murmurs Abdomen: No visible peristalsis, Bowel sounds present on auscultation, soft, no tenderness, no guarding, no rigidity, obese abdomen Extremities: No obvious deformities, no pitting edema bilaterally, capillary refill intact, peripheral pulsations are intact on both sides Neurologic: Mental status: alert and conscious, oriented to place, person and time, preserved memory, normal speech. Cranial nerves I-XII: Normal. Motor system: Preserved power, coordination, bilateral high-frequency tremors noted, strength 5/5 in four extremities. Sensory system: Preserved temperature, pain and vibration sensation. 2+ deep tendon reflexes in biceps, triceps, quadriceps. Negative Babinski. Cerebellar: No nystagmus, dysdiadochokinesia, normal [id number] testing. Musculoskeletal: No joint swelling, deformities, inflammations, and no scoliosis and back tenderness Skin: Warm and dry. Dry oral mucosa. Tattooed throughout Advance Care Planning Advanced Care plannin - 30 Minutes Plan Plan Alcohol use disorder, CIWA 15 Patient is alert and oriented; appears anxious tremulous and tachycardic He has been drinking 1 bottle of vodka every day for the past 10 years ETOH <10, U tox positive for barbiturates benzodiazepines Plan Commenced the patient on Moderate alcohol withdrawal protocol in place, continue IV thiamine and IV folic acid to prevent Wernicke's encephalopathy Continue therapeutic multivitamins; chlordiazepoxide 50 mg q.6 H p.o. scheduled, ondansetron q.4h p.r.n. Continue the patient on p.o. Protonix as prophylaxis to prevent gastric varices/esophageal varices Monitor for signs of alcohol withdrawal, delirium tremens, seizures Recommend continues checks and CIWA score reassessments Substance use navigator consulted Elevated liver enzymes 2/2 Alcoholic hepatitis AST, ALT, alkaline phosphatase are chronically elevated, most likely due to alcoholic hepatitis Total bilirubin is normal Abdominal ultrasound in previous admission ( May 10, 2025 ) showed hepatomegaly and hepatic steatosis Hypertension Blood pressure is stable Continued home medications amlodipine 5 mg, and metoprolol succinate 25 mg COPD, not in exacerbation He uses Symbicort at home He is saturating well on room air Chest x-ray reported Question small amount of atelectasis in the left lung base . Peribronchial thickening, which is nonspecific however may represent infectious versus inflammatory bronchitis. DuoNebs scheduled Tobacco use disorder He has been smoking a pack a day for the past 30 years Nicotine patch daily Obesity BMI 35.9 kg/meter squared Possible Sleep apnea Recommended weight loss Recommended outpatient sleep study I spent a total of 18 minutes reviewing various resuscitative measures/ACP with the patient. The patient decided to be full code. Code status: Full code DVT prophylaxis: Lovenox subQ GI prophylaxis: IV pantoprazole 40 mg Pain management: Tylenol p.r.n. Diet/nutrition: Regular diet Prognosis: Guarded Disposition: Continue alcohol withdrawal protocol, Monitor for seizures. Anticipate discharge in the next 24-48 hours. Patient has an establishment with [facility], as per patient they said they would accept the patient once he is medically cleared Resident attestation: The patient note has been reviewed and supervised by senior residents PGY-2/ PGY-3. Patient was seen, examined and discussed with attending physician, Dr. Pastor Worthy MD Internal Medicine resident, PGY-1 Date of Service: Jul 03, 2025 Billing Provider: SHANTAL COUGHLIN MD Common Visit Codes: [id number] INP/OBS CARE(HIGH) LISA WORTHY, RES Jul 03, 2025 12:50 SHANTAL COUGHLIN MD Jul 06, 2025 14:14
[2025-07-03] MEDS: albuterol 2.5 MG/3 ML nebule NEB PRN (19:35)
[2025-07-04] VITALS (11 sets, daily range): BP systolic 84–132; BP diastolic 48–98; PULSE 79–112; RESP 15–29; TEMP 97.8–98.8; O2SAT 89–98
[2025-07-04] MEDS: diazepam inj 5 MG/ML inj. IV PRN (00:40)
[2025-07-04 06:43] LABS: MEAN PLATELET VOLUME 7.9 FL (7.4-10.4); RED CELL DISTRIBUTION WIDTH 16.1 % (11.5-14.5)
[2025-07-04 07:33] LABS: CREATININE 0.72 MG/DL (0.60-1.10); TOTAL CARBON DIOXIDE 25.4 MMOL/L (24-32); eCRCL 125 ML/MIN; eGFR > 90 ML/MIN
[2025-07-04] MEDS: ipratropium/albuterol 3ml nebule ONE (08:15)
[2025-07-04] MEDS: ipratropium/albuterol 3ml nebule NEB SCH (15:05)
--- NOTE | 2025-07-04 17:50 | PROGRESS NOTE- Residence ---
Progress Note - Resident Providers to CC Resident Creating Document: LISA WORTHY RES CC: SHANTAL COUGHLIN MD ~ Antibiotic Timeout Antibiotic Ordered?: No Subjective Patient was seen and examined at bedside. Patient appears much better clinically compared to yesterday, he continues to have some tremulousness but overall he is doing better compared to yesterday. Patient developed mild tachycardia and in the night had few sec of type 2 first-degree heart block which resolved. No other acute overnight symptoms noted Objective Vital Signs Date Time Temp Pulse Resp B/P (MAP) Pulse Ox O2 Delivery O2 Flow Rate FiO2 07/04/25 17:36 22 07/04/25 08:28 104 Room Air 0.0 07/04/25 08:17 98 21 07/03/25 22:00 97.9 141/95 (110) Result Diagram: 07/04/25 0614 07/04/25 0614 General: Awake, oriented to person, place and time, appears tremulous flushed anxious HEENT: Conjunctive are pink, sclerae clear, no icterus, pupil is equal in both sides, reactive to light, no ear discharge, no pharyngeal erythema or an edema. Neck: Supple, no JVD, no lymphadenopathy and thyromegaly. Chest: Equal air entry on both lungs, no additional sounds no rhonchi no wheezing at the moment. Cardiovascular: S1-S2 regular sinus rhythm and, normal rate, no gallops, no rubs, no murmurs Abdomen: No visible peristalsis, Bowel sounds present on auscultation, soft, no tenderness, no guarding, no rigidity, obese abdomen Extremities: No obvious deformities, no pitting edema bilaterally, capillary refill intact, peripheral pulsations are intact on both sides Neurologic: Mental status: alert and conscious, oriented to place, person and time, preserved memory, normal speech. Cranial nerves I-XII: Normal. Motor system: Preserved power, coordination, bilateral high-frequency tremors noted, strength 5/5 in four extremities. Sensory system: Preserved temperature, pain and vibration sensation. 2+ deep tendon reflexes in biceps, triceps, quadriceps. Negative Babinski. Cerebellar: No nystagmus, dysdiadochokinesia, normal [id number] testing. Musculoskeletal: No joint swelling, deformities, inflammations, and no scoliosis and back tenderness Skin: Warm and dry. Dry oral mucosa. Tattooed throughout Advance Care Planning Advanced Care plannin - 30 Minutes Assessment Assessment 50-year-old male patient with past medical history of alcohol use disorder is currently being treated for alcohol withdrawal symptoms Plan Plan Alcohol use disorder, CIWA 15 Patient is alert and oriented; appears anxious tremulous and tachycardic He has been drinking 1 bottle of vodka every day for the past 10 years ETOH <10, U tox positive for barbiturates benzodiazepines Plan Commenced the patient on Moderate alcohol withdrawal protocol in place, continue IV thiamine and IV folic acid to prevent Wernicke's encephalopathy Continue therapeutic multivitamins; chlordiazepoxide 50 mg q.6 H p.o. scheduled, ondansetron q.4h p.r.n. Continue the patient on p.o. Protonix as prophylaxis to prevent gastric varices/esophageal varices Monitor for signs of alcohol withdrawal, delirium tremens, seizures Recommend continues checks and CIWA score reassessments Substance use navigator consulted Elevated liver enzymes 2/2 Alcoholic hepatitis AST, ALT, alkaline phosphatase are chronically elevated, most likely due to alcoholic hepatitis Total bilirubin is normal Abdominal ultrasound in previous admission ( May 10, 2025 ) showed hepatomegaly and hepatic steatosis Hypertension Blood pressure is stable Continued home medications amlodipine 5 mg, and metoprolol succinate 25 mg COPD, not in exacerbation He uses Symbicort at home He is saturating well on room air Chest x-ray reported Question small amount of atelectasis in the left lung base . Peribronchial thickening, which is nonspecific however may represent infectious versus inflammatory bronchitis. DuoNebs scheduled Tobacco use disorder He has been smoking a pack a day for the past 30 years Nicotine patch daily Obesity BMI 35.9 kg/meter squared Possible Sleep apnea Recommended weight loss Recommended outpatient sleep study I spent a total of 18 minutes reviewing various resuscitative measures/ACP with the patient. The patient decided to be full code. Code status: Full code DVT prophylaxis: Lovenox subQ GI prophylaxis: IV pantoprazole 40 mg Pain management: Tylenol p.r.n. Diet/nutrition: Regular diet Prognosis: Guarded Disposition: Continue alcohol withdrawal protocol, Monitor for seizures. Anticipate discharge in the next 24-48 hours. Patient has an establishment with [facility], as per patient they said they would accept the patient once he is medically cleared and vacancy available Resident attestation: The patient note has been reviewed and supervised by senior residents PGY-2/ PGY-3. Patient was seen, examined and discussed with attending physician, Dr. Pastor Worthy MD Internal Medicine resident, PGY-1 Date of Service: Jul 04, 2025 Billing Provider: SHANTAL COUGHLIN MD Common Visit Codes: [id number] INP/OBS CARE(HIGH) LISA WORTHY, RES Jul 04, 2025 17:50 SHANTAL COUGHLIN MD Jul 06, 2025 14:15
[2025-07-05] VITALS (7 sets, daily range): BP systolic 132–142; BP diastolic 75–93; PULSE 76–102; RESP 14–24; TEMP 97.3–97.8; O2SAT 94–97
[2025-07-05 07:08] LABS: MEAN PLATELET VOLUME 8.2 FL (7.4-10.4); RED CELL DISTRIBUTION WIDTH 16.2 % (11.5-14.5)
[2025-07-05 07:41] LABS: CREATININE 0.70 MG/DL (0.60-1.10); TOTAL CARBON DIOXIDE 24.9 MMOL/L (24-32); eCRCL 129 ML/MIN; eGFR > 90 ML/MIN
[2025-07-05] MEDS: pantoprazole 40mg Tablet.DR PO SCH (09:25)
[2025-07-05] MEDS ORDERED: MULT-25 PO (11:34)
[2025-07-05] MEDS ORDERED: FOLI1TAB27 PO (11:34)
[2025-07-05] MEDS ORDERED: PANT40TA54 PO (11:34)
[2025-07-05] MEDS ORDERED: thiamine tablet PO (11:34)
[2025-07-05] MEDS ORDERED: CHLO25CA10 PO (11:43)
[2025-07-05] MEDS ORDERED: diazepam inj 5 MG/ML inj. IV PRN (15:40)
--- NOTE | 2025-07-05 18:16 | DISCHARGE SUMMARY-Residence ---
Discharge Summary Providers to CC Resident Creating Document: TACHO OCONNELLEZEQUIELROBERT DIANA CC: SHANTAL COUGHLIN MD ~ Discharge Summary Admission Diagnosis: alcohol withdrawals Hospital Course DATE OF ADMISSION: 07/01/2025 DATE OF DISCHARGE: 07/05/2025 Discharge Diagnosis\Comment: Alcohol use disorder Alcohol withdrawal syndrome Elevated liver enzymes 2/2 Alcoholic hepatitis Hypertension COPD, not in exacerbation Tobacco use disorder Operations\Procedures: None Consultants: None Complications: None Condition on DC: Stable New Medications: Folic Acid* (Folic Acid*) Y Tab 1 MG PO DAILY for 30 Days, #30 TAB Multivitamin with Folic Acid (Thera Tablet) 400 Mcg Tablet 1 EACH PO Q24H for 30 Days, #30 TAB Pantoprazole Sodium (Pantoprazole Sodium) 40 Mg Tablet.dr 40 MG PO BKF for 30 Days, #30 TAB.SR [thiamine tablet] () 100 MG TABLET 100 MG PO DAILY for 30 Days, #30 Changed Medications: Chlordiazepoxide Hcl (Librium) 25 Mg Capsule 25 MG PO BID PRN for for anxiety/agitation for 4 Days, #8 CAP (Medication details modified) Continued Medications: Amlodipine Besylate (Amlodipine Besylate) 5 Mg Tablet 1 TAB PO DAILY for 30 Days, #30 TAB 0 Refills Budesonide/Formoterol Fumarate (Symbicort 160-4.5 Mcg Inhaler) 160 Mcg-4.5 Mcg/Actuation Hfa.aer.ad 2 PUFFS INH Q12H for 30 Days, #10.2 GM 0 Refills Metoprolol Succinate (Metoprolol Succinate) 25 Mg Tab.sr.24h 1 TAB PO DAILY for 30 Days, #30 TAB 0 Refills Quetiapine Fumarate* (Seroquel*) 100 Mg Tablet 1 TAB PO DAILY, TAB Discharge Summary: Patient was admitted with the following HPI by Dr. Rani Tierney: 50-year-old male with history of alcohol use disorder, hypertension, dyslipidemia, history of stroke, COPD came to the ER for detoxification from alcohol. He states that he is homeless and wants to get into [facility] but they will not accept unless he has detoxified and medically cleared. He reports tremors, sweating, anxiety and a headache. His last drink was 1 gal of vodka yesterday. He has been drinking a bottle of vodka everyday for the past 10 years. He is alert and oriented. He was recently admitted in April for alcohol intoxication and toxic encephalopathy. He reports having history of seizures. He denies nausea, vomiting, abdominal pain, chest pain, palpitations, shortness of breath, hallucinations, fever, chills, burning micturition. He is homeless He goes to the [facility] for medical care Can ambulate independently Hospital course: Patient was admitted with the diagnosis of alcohol use disorder and alcohol withdrawal. He was started on alcohol withdrawal protocol consisting of p.r.n. diazepam/Haldol, as well as IV hydration and multivitamins. Patient slowly returned to his baseline, with increased confusion and resolution of tremors. Patient was seen by the substance abuse navigator and was given resources. Patient remained hemodynamically stable during hospital course. Patient will be discharged today. He is in agreement with the plan. Imaging: Chest x-ray: Normal Laboratory Tests: Test 07/03/25 20:11 07/04/25 01:54 07/04/25 06:14 07/04/25 10:13 Glucometer 112 mg/dl 114 mg/dl 170 mg/dl White Blood Count 7.5 X10'3 Red Blood Count 4.36 X10'6 Hemoglobin 14.8 g/dl Hematocrit 43.2 % Mean Corpuscular Volume 99.0 FL Mean Corpuscular Hemoglobin 33.9 PG Mean Corpuscular Hemoglobin Concent 34.2 g/dL Red Cell Distribution Width 16.1 % Platelet Count 186 X10'3 Mean Platelet Volume 7.9 FL Neutrophils (%) (Auto) 71.3 % Lymphocytes (%) (Auto) 18.9 % Monocytes (%) (Auto) 6.6 % Eosinophils (%) (Auto) 2.9 % Basophils (%) (Auto) 0.3 % Neutrophils # (Auto) 5.3 X10'3 Lymphocytes # (Auto) 1.4 X10'3 Monocytes # (Auto) 0.5 X10'3 Eosinophils # (Auto) 0.2 X10'3 Basophils # (Auto) 0.0 X10'3 CBC Comment Sodium Level 142 MMOL/L Potassium Level 3.4 MMOL/L Chloride Level 105 MMOL/L Carbon Dioxide Level 25.4 MMOL/L Anion Gap 12 Blood Urea Nitrogen 9 MG/DL Creatinine 0.72 MG/DL Estimated GFR/1.73 m2 > 90 ML/MIN BUN/Creatinine Ratio 12.5 Glucose Level 101 MG/DL Calcium Level 8.7 MG/DL Total Bilirubin 0.5 MG/DL Aspartate Amino Transf (AST/SGOT) 34 U/L Alanine Aminotransferase (ALT/SGPT) 46 U/L Alkaline Phosphatase 111 IU/L Total Protein 7.9 G/DL Albumin 3.3 G/DL Globulin 4.6 G/DL Albumin/Globulin Ratio 0.7 Chemistry Comments Test 07/04/25 17:44 07/05/25 06:32 07/05/25 09:24 Glucometer 105 mg/dl 182 mg/dl White Blood Count 7.2 X10'3 Red Blood Count 4.28 X10'6 Hemoglobin 14.4 g/dl Hematocrit 42.0 % Mean Corpuscular Volume 98.1 FL Mean Corpuscular Hemoglobin 33.8 PG Mean Corpuscular Hemoglobin Concent 34.4 g/dL Red Cell Distribution Width 16.2 % Platelet Count 178 X10'3 Mean Platelet Volume 8.2 FL Neutrophils (%) (Auto) 70.3 % Lymphocytes (%) (Auto) 19.3 % Monocytes (%) (Auto) 7.4 % Eosinophils (%) (Auto) 2.5 % Basophils (%) (Auto) 0.5 % Neutrophils # (Auto) 5.0 X10'3 Lymphocytes # (Auto) 1.4 X10'3 Monocytes # (Auto) 0.5 X10'3 Eosinophils # (Auto) 0.2 X10'3 Basophils # (Auto) 0.0 X10'3 CBC Comment Sodium Level 142 MMOL/L Potassium Level 3.8 MMOL/L Chloride Level 106 MMOL/L Carbon Dioxide Level 24.9 MMOL/L Anion Gap 11 Blood Urea Nitrogen 11 MG/DL Creatinine 0.70 MG/DL Estimated GFR/1.73 m2 > 90 ML/MIN BUN/Creatinine Ratio 15.7 Glucose Level 98 MG/DL Calcium Level 8.9 MG/DL Total Bilirubin 0.6 MG/DL Aspartate Amino Transf (AST/SGOT) 35 U/L Alanine Aminotransferase (ALT/SGPT) 46 U/L Alkaline Phosphatase 107 IU/L Total Protein 8.1 G/DL Albumin 3.3 G/DL Globulin 4.8 G/DL Albumin/Globulin Ratio 0.7 Chemistry Comments Discharge physical exam Vital Signs Date Time Temp Pulse Resp B/P (MAP) Pulse Ox O2 Delivery O2 Flow Rate FiO2 07/05/25 14:06 18 07/05/25 11:00 97.8 76 132/75 (94) 97 Room Air 07/05/25 08:18 0.0 21 General: Disheveled, awake, alert oriented to place, time, and person HEENT: Facial telangiectasia patient is present. No pallor present, no icterus, moist mucous membranes Neck: No masses and tenderness Resp: Unlabored. Lungs clear to auscultation bilaterally. Chest: Normal expansion Cardiovascular: Regular Rate and rhythm, normal S1 and S2 without murmur, rub or gallop Abdomen: Soft and nontender, no organomegaly, no guarding and rigidity, bowel sounds present Neuro: No tremors. No focal weakness in the upper and lower limb muscles, power of the muscles 5/5 bilateral upper and lower extremities, normal reflexes bilaterally. Cranial nerves intact Extremities: No palmar erythema. No cyanosis,clubbing or edema Skin: Warm and Dry. No lesions Psych: Normal affect and mood. Cooperative with exam Disposition: Patient will be discharged with the following recommendations: Please continue all your medications as prescribed to prevent recurrence of withdrawal symptoms. It is strongly advised that you stop alcohol intake completely. You have been given resources by the substance abuse navigator to help you during this process. Please return to the ED you you experience any concerning symptoms including confusion, tremors, visual or auditory hallucinations. *Problems/Diagnosis: (1) Alcohol abuse Status: Acute (2) Severe alcohol withdrawal delirium Status: Acute Total Time Spent on D/C: > 30 Minutes Date of Service: Jul 05, 2025 Billing Provider: SHANTAL COUGHLIN MD Common Visit Codes: 39096-TAK/OBS DISCH DAY >30min ROBERT PRETTY Jul 05, 2025 18:16 SHANTAL COUGHLIN MD Jul 06, 2025 14:15
== END 2025-07-05 15:30 | disposition home or self-care (01) | DRG 280 ==
LOC: ER 11:34 → ED HOLD 15:45 → PCU 3S 21:00
PROVIDERS: ADMIT Internal Medicine; ATTEND Internal Medicine
DX: K70.10 Alcoholic hepatitis without ascites (principal); Z59.00 Homelessness unspecified; F10.139 Alcohol abuse with withdrawal, unspecified; F31.9 Bipolar disorder, unspecified; I10 Essential (primary) hypertension; J44.9 Chronic obstructive pulmonary disease, unspecified; E66.9 Obesity, unspecified; E78.5 Hyperlipidemia, unspecified; Y90.0 Blood alcohol level of less than 20 mg/100 ml; F17.210 Nicotine dependence, cigarettes, uncomplicated; F41.9 Anxiety disorder, unspecified; Z80.1 Family history of malignant neoplasm of trachea, bronchus and lung; Z81.8 Family history of other mental and behavioral disorders; Z81.1 Family history of alcohol abuse and dependence; Z82.49 Family history of ischemic heart disease and other diseases of the circulatory system; Z80.8 Family history of malignant neoplasm of other organs or systems; Z88.0 Allergy status to penicillin; Z86.73 Personal history of transient ischemic attack (TIA), and cerebral infarction without residual deficits; Z68.35 Body mass index [BMI] 35.0-35.9, adult
CPT/HCPCS: 36415; 71045; 80053; 80305; 80320; 81003; 82948; 83605; 83690; 83735; 84145; 85025; 87081; 94640; 94760; 99285; A4615; G0378; J0360; J1630; J1650; J2470; J2560; J3360; J3411; J3490; J7030